=== PATIENT | female | born 1990 | race Caucasian/White ===

== ENCOUNTER 2019-11-04 23:43 | Emergency (ER) | payer MEDICAID, SELFPAY ==
[2019-11-04 23:46] VITALS: BP 163/109; PULSE 86; RESP 18; TEMP 36.8; O2SAT 99; BMI 42.4
--- NOTE | 2019-11-05 00:07 | ED.VIS.GEN ---
History of Present Illness Chief Complaint: Sore Throat Informant: Patient Onset: Days Timing: Intermittent Current Severity: Mild Maximum Severity: Mild Narrative: Patient presents with cold symptoms and concerns about white spots on her tonsils. She states she is had URI symptoms since but symptoms are improving. She denies having fever. Yesterday she was eating some almonds when she felt like something was stuck in her throat. She noted some white spots on her tonsils. She used the edge of a Q-tip to remove a piece of an almond had punctured into her right tonsil. She states it was bleeding for a short time after. She felt pretty good today but noted some increased white spots again tonight and is concerned she may have an infection. She also does bring up history of hypertension. She states for the past 3 years she will have elevated blood pressure when she checks it at a pharmacy or when she goes to her dentist. She states she seen her primary care physician a few times but when it is checked manually in the office she is always told it is okay. - Past Medical History (1) Hypertension Status: Chronic (2) HSV-2 seropositive Status: Chronic Past Medical History - Allergies and Home Meds Allergies/Adverse Reactions: Allergies latex Allergy (Verified 11/04/19 23:48) Itching meperidine HCl [From Demerol] Allergy (Verified 11/04/19 23:48) Hives acetaminophen [From Tylenol-Codeine #3] Adverse Reaction (Verified 11/04/19 23:48) Vomiting codeine phosphate [From Tylenol-Codeine #3] Adverse Reaction (Verified 11/04/19 23:48) Vomiting morphine Adverse Reaction (Verified 11/04/19 23:48) Vomiting Primary Care Physician: Care Physician,No Primary [Primary Care Provider] - Lives: With Family Smoking Status: Current every day smoker Review of Systems General: Denies: Chills, Fever Eyes: Denies: Visual changes - bilaterally ENT: Reports: Rhinorrhea, Sore throat, - - Head congestion Cardiovascular: Denies: Chest pain Respiratory: Reports: Cough. Denies: Dyspnea Gastrointestinal: Denies: Abdominal pain, Nausea, Vomiting, Diarrhea Musculoskeletal: Denies: Neck pain Skin: Denies: Rash Neurological: Denies: Headache Allergy: Denies: Uticaria Physical Exam Vital Signs/Narrative: Vital Signs Temp Pulse Resp BP Pulse Ox 11/04/19 23:46 98.2 F 86 18 163/109 H 99 Inital Vital Signs reviewed: Yes General: Well nourished, Well developed Head: Normocephalic Eyes: Perrl, EOMI ENT: TM's clear, - - 2+ tonsils bilaterally. Small exudate noted on right tonsil. Posterior pharyngeal drainage noted. Neck: Supple, No lymphadenopathy Cardiovascular: Regular rate, Regular rhythm Respiratory: No distress, CTA bilaterally Abdomen: Soft, Nontender Skin: Normal color Neurological: Alert, Oriented x3 Psychological: Normal affect Diagnostic/Tx/Re-eval - Medical Decision Making Does sound like patient has a puncture wound to her tonsil. Due to the amount of bacteria in her mouth I am concerned with his getting secondarily infected. She will be covered with amoxicillin. I also encouraged her to keep a journal of her blood pressure readings. She will be referred to Dr. Thompson, next on the no doc list for follow-up. I encouraged her to take this list to her first appointment to potentially be started on blood pressure medicine. ED Disposition - Plan for ED Patient: Disposition: Home or Assisted Living Diagnosis: Puncture wound of internal mouth Instructions: PUNCTURE WOUND, General, HYPERTENSION, To Be Confirmed Prescriptions: Amoxicillin 500 mg PO TID #30 tab Transmission Status: Pending to [facility] #30 Referrals: Pedrito Thompson MD [STAFF PHYSICIAN] - As soon as possible
[2019-11-05] MEDS: AMOXICILLIN 500 MG CAPSULE PO (00:14)
[2019-11-05 00:19] VITALS: BP 137/100; PULSE 85; RESP 15; O2SAT 98
== END 2019-11-05 00:20 | disposition home or self-care (01) ==
PROVIDERS: Emergency Provider Emergency Medicine
DX: S01.532A Puncture wound without foreign body of oral cavity, initial encounter (principal); R05 Cough; J34.89 Other specified disorders of nose and nasal sinuses; R09.81 Nasal congestion; J02.9 Acute pharyngitis, unspecified; X58.XXXA Exposure to other specified factors, initial encounter; Y93.9 Activity, unspecified; Y92.9 Unspecified place or not applicable; F17.200 Nicotine dependence, unspecified, uncomplicated
CPT/HCPCS: 99283

== ENCOUNTER 2020-04-10 11:35 | Emergency (ER) | payer MEDICAID, SELFPAY ==
[2020-04-10 11:36] VITALS: BP 143/88; PULSE 93; RESP 16; TEMP 36.6; O2SAT 96; BMI 38.7
--- NOTE | 2020-04-10 12:14 | RAD_ITS ---
STUDY: X-RAY - RIGHT FOOT CLINICAL: Female, 29 years old. right foot injury 04-08-20 -- pain, bruising, swelling 3-5th MT and toes TECHNIQUE: 3 view(s) of the foot. COMPARISON: None. FINDINGS: Normal talus, calcaneus, and tarsal bones. Normal visualized subtalar, talonavicular, calcaneocuboid, tarsal and tarsometatarsal articulations. Normal metatarsi. Normal metatarsophalangeal joint of the great toe. Normal tibial and fibular sesamoid bones. Normal interphalangeal joint of the great toe. Normal phalanges of the great toe. Normal second through fifth metatarsophalangeal joints. Normal interphalangeal joints and phalanges of the lesser toes. The soft tissue structures are unremarkable. RAD/Foot min 3 Views IMPRESSION: Normal x-ray examination of the foot. Electronically Signed: Curt Moscoso, at 12:33 EDT Tel , Service support ,
--- NOTE | 2020-04-10 12:14 | ED.VIS.LOWEX ---
History of Present Illness Chief Complaint: Lower Extremity Injury Informant: Patient Occurred: Days - 2 Mechanism/Context: Trip Context: Sudden Onset Timing: Continuous Quality of Pain: Aching Location: right foot Current Severity: Moderate Maximum Severity: Moderate Worsened by: walking Relieved by: resting, ibuprofen Associated Symptoms: Negative for: Parasthesia, Weakness, Loss of Funtion Narrative: 2 days ago, patient was going up some steps and tripped, jamming her forefoot into the rise of the next step, bending all of her toes back forcibly. She had on flats/shoes, somehow sustained an abrasion to the tops of the lateral couple toes, thinks that they probably got pinched in the process. She has been able to walk, however she had some bruising and swelling, it is persistent and is concerned she might of fractured something. Denies any other injuries. No ankle pain. - Past Medical History (1) Hypertension Status: Chronic Past Medical History - Allergies and Home Meds Allergies/Adverse Reactions: Allergies latex Allergy (Verified 04/10/20 12:12) Itching meperidine HCl [From Demerol] Allergy (Verified 04/10/20 12:12) Hives acetaminophen [From Tylenol-Codeine #3] Adverse Reaction (Verified 04/10/20 12:12) Vomiting codeine phosphate [From Tylenol-Codeine #3] Adverse Reaction (Verified 04/10/20 12:12) Vomiting morphine Adverse Reaction (Verified 04/10/20 12:12) Vomiting Primary Care Physician: Care Physician,No Primary [Primary Care Provider] - Lives: With Family Smoking Status: Current every day smoker Review of Systems Musculoskeletal: Reports: Extremity Pain Skin: Reports: Abrasions Neurological: Denies: Headache, Weakness, Numbness Physical Exam Vital Signs/Narrative: Vital Signs Temp Pulse Resp BP Pulse Ox 04/10/20 11:36 97.8 F 93 16 143/88 H 96 Inital Vital Signs reviewed: Yes - Extremity Exam Right Foot: Abrasion - Dorsum of the bases of toes 3 and 4, with scabs, no sign of infection, - - Tenderness at the distal half of metatarsals 3, 4, 5, with local swelling and ecchymosis in the associated toe webspaces. No tenderness at the toes themselves. No deformities. Base of the fifth nontender. No midfoot deformities. The tibial aspect of the foot is nontender and benign. No ankle tenderness or limitation range of motion.. Negative for: Limited ROM General: Well nourished, Well developed, - - nad Head: Normocephalic, Atraumatic Skin: Normal color, No rash, Trauma - See above. Skin intact. Minor abrasions dorsal right foot. Neurological: Alert, Oriented x3, Cranial nerves II-XII grossly intact, Normal Strength, Normal Sensation Psychological: Normal affect, Normal Mood Diagnostic/Tx/Re-eval Clinical Impression(s) from Imaging Studies Foot X-Ray 04/10/20 12:14 IMPRESSION: Normal x-ray examination of the foot. Electronically Signed: Elias Danis, at 12:33 EDT Tel , Service support , - Medical Decision Making X-rays are negative, patient is reassured, supportive care advised. She is wearing sandals and doing well with that I do not think a postop shoe will necessarily help her more. ED Disposition - Plan for ED Patient: Disposition: Home or Assisted Living Diagnosis: Contusion of right foot Instructions: ED FOOT CONTUSION Referrals: Doctor,Your [STAFF PHYSICIAN] - As Needed
[2020-04-10 13:24] VITALS: RESP 18
== END 2020-04-10 13:24 | disposition home or self-care (01) ==
PROVIDERS: Emergency Provider Emergency Medicine
DX: S90.31XA Contusion of right foot, initial encounter (principal); S90.811A Abrasion, right foot, initial encounter; W18.40XA Slipping, tripping and stumbling without falling, unspecified, initial encounter; Y93.9 Activity, unspecified; Y92.9 Unspecified place or not applicable; F17.200 Nicotine dependence, unspecified, uncomplicated
CPT/HCPCS: 73630; 99282

== ENCOUNTER 2020-10-11 20:56 | Emergency (ER) | payer MEDICAID, SELFPAY ==
[2020-10-11 20:57] VITALS: BP 146/102; PULSE 85; RESP 16; TEMP 35.8; O2SAT 100; BMI 36.3
--- NOTE | 2020-10-11 21:09 | US_ITS ---
STUDY: FIRST TRIMESTER OBSTETRICAL ULTRASOUND REASON FOR EXAM: Female, 29 years old SEVERE LLQ PAIN TODAY HCGs 427 LMP: 08/30/2020 TECHNIQUE: Transabdominal and Transvaginal TECHNICAL QUALITY: Adequate. PRIOR ULTRASOUND: None. FINDINGS: There is a gestational sac in the lower uterine segment. There is no demonstrated yolk sac. The placenta is non-visualized. There is no demonstrated embryo ( pole). The estimated gestation age (EGA) by LMP is 6 weeks, 0 days. The estimated date of delivery (JUAN JOSE) by LMP is 06/06/2021. The uterus measures 9.9 x 6.7 x 4.9 centimeters. There is no demonstrated uterine fibroid. The cervix is closed. Endometrial echoes measure 1.3 cm. The right ovary measures 3.5 x 2.6 x 2.2 cm. There is a 1.8 cm cyst. There is no visualized right adnexal mass or complex lesion. The left ovary measures 3.0 x 2.3 x 1.9 cm. There is no left ovarian cyst. There is no visualized left adnexal mass or complex lesion. There is no fluid in the cul de sac. US/Transvaginal w/Preg US IMPRESSION: No intrauterine gestation is seen. Therefore, ectopic cannot be excluded. Correlate with quantitative sequential beta hCG. Electronically Signed: Carlos Plaza MD at 22:49 EST , Service support ,
--- NOTE | 2020-10-11 21:34 | ED.DCSUM_ITS ---
History of Present Illness Chief Complaint: Abd Pain Informant: Patient Onset: Today Current Severity: Mild Maximum Severity: Moderate Narrative: Patient presents secondary to left lower quadrant pain that is been ongoing all day today. She believes she is approximately 6 weeks . She has not yet seen her [employer] [employer]. She states she was having some left flank pain over the past week but no dysuria. She is a history of kidney stones but states this pain is not similar to her prior kidney stones. She denies any bleeding or spotting. - Past Medical History (1) Kidney stones Status: Chronic (2) Hypertension Status: Chronic Past Medical History - Allergies and Home Meds Allergies/Adverse Reactions: Allergies latex Allergy (Verified 10/11/20 20:59) Itching meperidine HCl [From Demerol] Allergy (Verified 10/11/20 20:59) Hives acetaminophen [From Tylenol-Codeine #3] Adverse Reaction (Verified 10/11/20 20:59) Vomiting codeine phosphate [From Tylenol-Codeine #3] Adverse Reaction (Verified 10/11/20 20:59) Vomiting morphine Adverse Reaction (Verified 10/11/20 20:59) Vomiting Primary Care Physician: Care Physician,No Primary [Primary Care Provider] - Lives: With Family Smoking Status: Current every day smoker Review of Systems General: Denies: Chills, Fever Eyes: Denies: Visual changes - bilaterally ENT: Denies: Bilateral ear pain Cardiovascular: Denies: Chest pain Respiratory: Denies: Dyspnea, Cough Gastrointestinal: Reports: Abdominal pain. Denies: Vomiting, Diarrhea Genitourinary: Denies: Dysuria, Hematuria Musculoskeletal: Denies: Swelling, Extremity Pain Skin: Denies: Rash Hematologic: Denies: Easy bruising, Easy bleeding Allergy: Denies: Uticaria Physical Exam Vital Signs/Narrative: Vital Signs Temp Pulse Resp BP Pulse Ox 10/11/20 20:57 96.5 F L 85 16 146/102 H 100 Inital Vital Signs reviewed: Yes General: Well nourished, Well developed Head: Normocephalic ENT: Moist mucous membranes Neck: Supple Cardiovascular: Regular rate, Regular rhythm Respiratory: No distress, CTA bilaterally Abdomen: Soft, Nontender Extremities: Nontender Skin: Normal color Neurological: Alert, Oriented x3, Normal Strength, Normal Sensation Psychological: Normal affect Diagnostic/Tx/Re-eval Impressions Obstetrics Ultrasound 10/11/20 21:09 IMPRESSION: No intrauterine gestation is seen. Therefore, ectopic cannot be excluded. Correlate with quantitative sequential beta hCG. Electronically Signed: Carlos Plaza MD at 22:49 EST , Service support , 10/11/20 21:09 Transvaginal w/Preg US [US] Stat Laboratory Results 10/11/20 10/11/20 21:20 21:26 HCG, Quant 427 H Urine Color Yellow Urine Clarity Clear Urine pH 6.0 Ur Specific Barton 1.020 Urine Protein Negative Urine Glucose (UA) Normal Urine Ketones 5 H Urine Occult Blood Negative Urine Nitrite Negative Urine Bilirubin Negative Urine Urobilinogen Normal Ur Leukocyte Esterase 25 H Urine RBC 0 SEEN Urine WBC 0 SEEN Ur Squamous Epith Cells 0-5 SEEN Urine Bacteria 0 SEEN Urine Mucus RARE - Medical Decision Making Quant tonight is only 427. Patient thought she was roughly 6 weeks . Ultrasound does not reveal adnexal mass or obvious ectopic , however intrauterine has not yet identified either. Patient will be written for a repeat quant in 48 hours. I will speak with her [facility] [employer] to help arrange close follow-up. ED Disposition - Plan for ED Patient: Disposition: Home or Assisted Living Diagnosis: Pelvic pain Instructions: ED ECTOPIC RULE OUT Referrals: Nitza Bowman MD [STAFF PHYSICIAN] - 5-7 Days
[2020-10-11 21:43] LABS: Bacteria 0 SEEN /hpf (None Seen); Red Blood Cells-Urine 0 SEEN /hpf (0-5); White Blood Cells 0 SEEN /hpf (0-5)
[2020-10-11 21:46] LABS: Color, Urine Yellow (Yellow); Glucose, Dipstick Normal (Normal); Ketone-Dipstick 5 mg/dl (Negative); Leukocyte Esterase-Dipstick 25 /ul (Negative); Nitrite-Dipstick Negative (Negative); Occult Blood-Urine Negative /ul (Negative); Protein-Dipstick Negative (Negative); Urine Bilirubin Dipstick Negative (Negative); Urine Clarity Clear (Clear); Urine Urobilinogen Normal (Normal)
[2020-10-11 21:51] LABS: Mucous, Urine RARE /hpf (<or=2+); Squamous Epithelial Cells - UA 0-5 SEEN /hpf (5-10)
[2020-10-11 22:02] LABS: hCG Titer Quant., Serum 427 mIU/mL (1-3)
[2020-10-11 23:16] VITALS: BP 132/74; PULSE 74; RESP 17; O2SAT 98
== END 2020-10-11 23:17 | disposition home or self-care (01) ==
PROVIDERS: Emergency Provider Emergency Medicine
DX: R10.2 Pelvic and perineal pain (principal); I10 Essential (primary) hypertension; Z87.442 Personal history of urinary calculi; F17.200 Nicotine dependence, unspecified, uncomplicated
CPT/HCPCS: 76817; 81001; 84702; 99283

== ENCOUNTER → 2020-10-12 16:27 | Outpatient (CLI) | payer MEDICAID, SELFPAY ==
[2020-10-11 20:57] VITALS: BMI 36.3
--- NOTE | 2020-10-12 16:30 | US_ITS ---
STUDY: FIRST TRIMESTER OBSTETRICAL ULTRASOUND REASON FOR EXAM: Female, 29 years old LLQ PAIN AND VIABILITY LIGHT BLEEDING 6 para 3. No current hCG level reported. LMP: 08/30/2020 TECHNIQUE: Transvaginal TECHNICAL QUALITY: Adequate. PRIOR ULTRASOUND: 10/11/2020 FINDINGS: There is no demonstrated intrauterine gestational sac. There is no demonstrated yolk sac. The placenta is non-visualized. There is no demonstrated embryo ( pole). The estimated gestation age (EGA) by LMP is 6 weeks, 1 days. The estimated date of delivery (JUAN JOSE) by LMP is 06/06/2021. The uterus measures 9.4 x 4.6 x 4 cm. Endometrium measures approximately 0.9 cm. Small calcification anterior lower uterine segment with adjacent ovoid hypoechoic echotexture as seen on previous examination possible site. There is no demonstrated uterine fibroid. The cervix is closed. The right ovary measures 3.5 x 3 x 2.5 cm. There is a complex 1.6 x 1.8 x 1.3 cm right ovarian cyst. There is no visualized right adnexal mass or complex lesion. The left ovary measures 3.5 x 2.5 x 2 cm. There is no left ovarian cyst. There is no visualized left adnexal mass or complex lesion. There is no fluid in the cul de sac. US/Init OB < 14Wks US IMPRESSION: No intrauterine detected. Changes involving the lower uterine segment likely related to previous surgical intervention such as . This is unchanged. No adnexal masses, large pelvic fluid or ovarian torsion. Right complex ovarian cyst likely corpus luteum. There are no positive findings for ectopic in this study. Correlation with serial quantitative hCG measurements is advised. Electronically Signed: Nasima Terrazas MD at 7:00 EST , Service support ,
== END ==
PROVIDERS: Referring Provider Obstetrics & Gynecology; Visit Provider Obstetrics & Gynecology
DX: O26.899 Other specified pregnancy related conditions, unspecified trimester (principal); R10.2 Pelvic and perineal pain; Z3A.00 Weeks of gestation of pregnancy not specified
CPT/HCPCS: 76801

== ENCOUNTER → 2020-10-13 14:33 | Outpatient (CLI) | payer MEDICAID, SELFPAY ==
[2020-10-11 20:57] VITALS: BMI 36.3
[2020-10-13 15:37] LABS: hCG Titer Quant., Serum 141 mIU/mL (1-3)
== END ==
PROVIDERS: Referring Provider Obstetrics & Gynecology; Visit Provider Obstetrics & Gynecology
DX: Z34.90 Encounter for supervision of normal pregnancy, unspecified, unspecified trimester (principal)
CPT/HCPCS: 36415; 84702

== ENCOUNTER 2021-05-29 14:29 | Emergency (ER) | payer MEDICAID, SELFPAY ==
[2021-05-29 14:29] VITALS: BP 155/80; PULSE 86; RESP 16; TEMP 36.1; O2SAT 95; BMI 39.8
--- NOTE | 2021-05-29 14:40 | VDLE_ITS ---
Reason For Study: Swelling Procedure LEFT This is a venous duplex using B-mode, color GSV is normal. flow and spectral Doppler. CFV is compressible, spontaneous, phasic, Exam performed in department. competent, and demonstrates normal A preliminary report was called and/or faxed augmentation. to ED. FV is compressible, spontaneous, phasic, competent and demonstrates normal augmentation. POP V is compressible, spontaneous, phasic, competent and demonstrates normal augmentation. T/P Trunk is compressible. PTV is compressible. LT PerV is compressible. Nonvascularized structure noted in the left popliteal space posterior to popliteal artery and vein measuring approximently 0.98 x 0.89 x 1.69 cm. VL/Venous Duplex US, Unilateral Interpretation Summary There is no evidence of left lower extremity deep vein thrombosis. Left great s aphenous vein appears patent and compressible segmentally. Small nonvascular cystic structure left po pliteal space 0.98 x 0.89 x 1.69 cm. By location this would be consistent with a Wang's cyst. Clini alfonso correlation would be appropriate. Ordering Physician: Terrell Wiggins Performed By: Justina Toledo RVT
--- NOTE | 2021-05-29 14:41 | EDS_ITS ---
HPI History of Present Illness Chief Complaint: Lower Extremity Injury Narrative Narrative: Patient presents with left lower extremity lesion that she has had for few weeks now she gets swelling at night especially. She has no calf pain. She has no chest pain or shortness of breath. She has no fever or chills. She has been feeling more weak and tired in the past few weeks. She has no history of trauma. She has no urinary symptoms. [facility] Home Medications NK 05/29/21 [History Last Taken Unknown] Allergy/AdvReac Type Severity Reaction Status Date / Time latex Allergy Itching Verified 05/29/21 14:31 meperidine HCl [From Demerol] Allergy Hives Verified 05/29/21 14:31 acetaminophen AdvReac Vomiting Verified 05/29/21 14:31 [From Tylenol-Codeine #3] codeine phosphate AdvReac Vomiting Verified 05/29/21 14:31 [From Tylenol-Codeine #3] morphine AdvReac Vomiting Verified 05/29/21 14:31 Surgical History (Updated 05/29/21 @ 14:51 by Kathie Nelson) H/O: Social History Smoking Status: Current every day smoker tobacco type: cigarettes ROS ROS ED ROS Narrative Past medical history: Reviewed, noncontributory Medications: Reviewed Social history: Noncontributory Review of systems: All systems negative except as indicated General: No fever. Increased weakness and tiredness Eyes: No visual changes ENT: No upper airway congestion, normal voice Neck: No neck pain Cardiovascular: No chest pain Respiratory: No shortness of breath or cough Gastrointestinal: No abdominal pain, nausea vomiting or diarrhea Genitourinary: No dysuria Musculoskeletal: Left lower extremity pain as in HPI Skin: No rash Neurological: No memory loss, confusion or any focal weakness Psych: No recent behavioral changes Hematologic: No easy bleeding or easy bruising EXAM Physical Exam Narrative Exam Narrative: Physical exam General: Well nourished, Well developed, No Acute Distress Head: Normocephalic, Atraumatic Eyes: Conjunctiva not pale ENT: Moist mucous membranes Neck: Supple, Nontender, No lymphadenopathy Cardiovascular: Regular rate, Regular rhythm Respiratory: No distress, CTA bilaterally Abdomen: Soft, Nontender, Nondistended Back: Nontender, Normal Inspection. Negative for: CVA tenderness Extremities: Left lower extremity has a skin lesion that is slightly raised and erythematous but no fluctuance, there is no calor. There is no calf pain. At this time there is no edema. Otherwise neurovascularly intact. Skin: Normal color, No rash Neurological: Alert, Normal Strength, Normal Sensation Psychological: Normal affect Const Vital Signs: 05/29/21 14:29 Temperature 96.9 F L Temperature Source Temporal Pulse Rate 86 Respiratory Rate 16 Blood Pressure 155/80 H Blood Pressure Mean 105 Pulse Ox 95 Oxygen Delivery Method Room Air MDM MDM MDM Narrative Medical decision making narrative: Patient has a normal work-up including a negative venous study. She appears well she has 1 single lesion which may or may not be erythema nodosum regardless she tells me the lesion is improving therefore I do not believe any further work-up is needed, she will be discharged in stable condition. Lab Data Labs: Laboratory Results - last 24 hr 05/29/21 05/29/21 14:50 14:50 WBC 6.9 RBC 4.80 Hgb 15.1 H Hct 44.1 MCV 91.9 MCH 31.5 MCHC 34.2 RDW Std Deviation 40.4 RDW Coeff of Priscila 11.9 Plt Count 226 MPV 9.7 Immature Gran % (Auto) 0.400 Neut % (Auto) 49.7 Lymph % (Auto) 35.3 [place] % (Auto) 7.5 Eos % (Auto) 6.4 H Baso % (Auto) 0.7 Absolute Neuts (auto) 3.4 Absolute Lymphs (auto) 2.44 Nucleated RBC % 0 Sodium 138 Potassium 3.8 Chloride 110 H Carbon Dioxide 24.0 Anion Gap 4 L BUN 15 Creatinine 0.70 Estim Creat Clear Calc 92.94 Est GFR (MDRD) Af Amer 125 Est GFR (MDRD) Non-Af 103 BUN/Creatinine Ratio 21.3 H Glucose 90 Calcium 9.0 Total Bilirubin 0.70 AST 17 ALT 24 Alkaline Phosphatase 55 Total Protein 7.5 Albumin 4.0 Globulin 3.5 Albumin/Globulin Ratio 1.1 Discharge Plan Triage Chief Complaint: Lower Extremity Injury ED Provider: Terrell Wiggins Dx/Rx/DC Orders Clinical Impression: Acute leg pain Instructions: ED Peripheral Edema, Unilateral Prescriptions: No Action NK RF: 0 Primary Care Provider: Care Physician,No Primary Referrals: Madisyn Palafox MD [STAFF PHYSICIAN] - 2 Days Care Physician,No Primary [Primary Care Provider] - 2 Days Disposition Disposition: Home, Self Care
[2021-05-29 15:00] LABS: Absolute Lymphocyte Count 2.44 X10^3/uL (0.83-4.51); Absolute Neutrophil Count 3.4 X10^3/uL (2.0-7.7); Basophil# 0.05 X10^3/uL; Basophil% 0.7 % (0-1); Eosinophil# 0.44 X10^3/uL; Eosinophils% 6.4 % (0-5); Hematocrit 44.1 % (37-47); Hemoglobin 15.1 g/dL (12.0-15.0); Lymphocyte # 2.44 X10^3/ul (0.83-4.51); Lymphocyte % 35.3 % (19-41); Mean Corp Hgb Conc 34.2 g/dL (32-36); Mean Corpuscular Hgb 31.5 pg (27.0-32.0); Mean Corpuscular Volume 91.9 fL (81-99); Mean Platelet Vol. 9.7 fl (6.2-12.0); Monocyte# 0.52 X10^3/uL; Monocyte% 7.5 % (0-10); NRBC Flagged by Analyzer 0 % (0-5); Neutrophil # 3.43 X10^3/uL (2.7-7.7); Neutrophil % 49.7 % (47-70); Platelet Count 226 K/mm3 (150-450); RBC Distribution Width CV 11.9 % (11.6-14.6); RBC Distribution Width SD 40.4 fl (35.1-43.9); White Blood Count 6.9 K/mm3 (4.4-11.0)
[2021-05-29 15:18] LABS: ALB/GLOB Ratio 1.1 RATIO (0.9-2.4); AST(SGOT) 17 U/L (15-37); Alanine Aminotransfer ALT/SGPT 24 U/L (13-56); Alkaline Phosphatase 55 U/L (45-117); Anion Gap 4 (5-15); BUN 15 mg/dL (7-18); BUN/Creat Ratio 21.3 RATIO (10-20); Chloride 110 mmol/L (98-107); EST Glomerular Filtration Rate 103 mL/min (>60); Est Glom Filt Rate - Afr Amer 125 mL/min (>60); Estimated Creatinine Clearance 92.94 ml/min; Globulin 3.5 g/dL (2.2-4.2); Glucose 90 mg/dL (74-106); Potassium 3.8 mmol/L (3.5-5.1); Protein, Total 7.5 g/dL (6.4-8.2); Sodium Level 138 mmol/L (136-145)
== END 2021-05-29 16:13 | disposition home or self-care (01) ==
PROVIDERS: Emergency Provider Emergency Medicine
DX: M79.605 Pain in left leg (principal); L98.9 Disorder of the skin and subcutaneous tissue, unspecified; F17.210 Nicotine dependence, cigarettes, uncomplicated
CPT/HCPCS: 80053; 85025; 93971; 99282

== ENCOUNTER 2021-11-18 19:58 | Observation (INO) | payer MEDICAID, SELFPAY ==
[2021-11-18 19:59] VITALS: BP 135/102; PULSE 99; RESP 18; TEMP 36.1; BMI 40.2
--- NOTE | 2021-11-18 20:11 | EX.ED.SAOD ---
HPI History of Present Illness Chief Complaint: Substance Abuse Informant: patient Onset/Context/Timing Onset: Weeks Context: Gradual Onset Timing: Continuous Current Severity: Mild Maximum Severity: Mild Narrative Narrative: 30-year-old female reported fentanyl abuse. Says she has been trying to stop on her own but gets too sick at home when she stops using. States she snorts the fentanyl and denies any IV drug abuse. Denies ever going through detox before. Has no other significant past medical history. Prior similar symptoms: Yes Recent Illness/Hospitalization: No PFSH PFSH Home Medications NK 05/29/21 [History Last Taken Unknown] Allergy/AdvReac Type Severity Reaction Status Date / Time latex Allergy Itching Verified 11/18/21 20:01 meperidine HCl [From Demerol] Allergy Hives Verified 11/18/21 20:01 acetaminophen AdvReac Vomiting Verified 11/18/21 20:01 [From Tylenol-Codeine #3] codeine phosphate AdvReac Vomiting Verified 11/18/21 20:01 [From Tylenol-Codeine #3] morphine AdvReac Vomiting Verified 11/18/21 20:01 Surgical History H/O: Social History Smoking Status: Current every day smoker tobacco type: cigarettes ROS ROS ED ROS Narrative Nausea when she stopped using her fentanyl. Review of Systems ROS Unobtainable: Denies due to encephalopathy Constitutional Constitutional ED: Denies fever(s) Eyes Eyes: Denies change in vision ENT ENT ED: Denies ear pain Respiratory/Chest Respiratory/Chest: Denies dyspnea Gastrointestinal Gastrointestinal: Reports nausea; Denies abdominal pain or vomiting Genitourinary Genitourinary ED: Denies dysuria Musculoskeletal Musculoskeletal: Denies myalgias Integumentary Denies rash Neurologic Neurologic: Denies headache(s) Psychiatric Psychiatric: Denies depression Endocrine Endocrinology: Denies polyuria Hematologic/Lymphatic Hematologic/Lymphatic: Denies easy bruising Allergic/Immunologic Allergic/Immunologic ED: Denies urticaria EXAM Physical Exam Narrative Exam Narrative: 30-year-old female no acute distress vital signs stable afebrile blood pressure elevated 135/102. HEENT exam unremarkable. Neck nontender no JVD. Lungs clear to auscultation bilaterally. Heart regular rhythm rate about 95 no murmur. Chest were nontender. Abdomen soft nontender. Moving all 4 extremities. Nontender no edema. Back nontender. Neurologically she is awake and alert answering questions and following commands. Const Vital Signs: 11/18/21 19:59 Temperature 97 F L Temperature Source Temporal Pulse Rate 99 Respiratory Rate 18 Blood Pressure 135/102 H Blood Pressure Mean 113 Oxygen Delivery Method Room Air Positive well nourished, well developed and obese; Negative for cachectic, contractures or unkempt General Appearance ED: well developed and NAD; Negative for unkempt, cachectic, contractures or pallor Nutritional Appearance: obese; Negative for cachectic HEENT Reports moist mucous membranes atraumatic Eyes PERRL and EOMs intact bilaterally Neck no lymphadenopathy, supple and no JVD Thyroid: Negative for tender Lymph Lymphatic: no lymphadenopathy noted and lymphadenopathy Chest Wall inspection of chest normal and palpation of chest normal Resp normal respiratory effort and clear to auscultation bilaterally Auscultation: Negative for rales, rhonchi, wheezes or other GI soft to palpation, non-tender, non-distended and no masses Palpation: Negative for tender, guarding or rigid Back/Spine no CVA tenderness General Back: Negative for CVA tenderness Cervical Spine: Negative for cervical spine tenderness Extremity General Extremety ED: Negative for edema or tenderness General Extremity: Negative for edema Neuro oriented x3 Sensorium / Orientation: alert, oriented to person, oriented to place and oriented to time; Negative for confused, lethargic or stuporous Motor Exam: strength 5/5 throughout; Negative for general weakness Psych mental status grossly normal and thought process normal Appearance: Negative for unkempt Skin General Skin Exam: Negative for jaundice or pallor Lesions: no lesions Rashes: no rashes MDM MDM MDM Narrative Medical decision making narrative: 30-year-old female history of fentanyl abuse requesting detox. Benign exam. No other complaints. Will discuss with the hospitalist for admission. Discharge Plan Triage Chief Complaint: Substance Abuse ED Provider: Bear Richards Dx/Rx/DC Orders Clinical Impression: Substance abuse, Desire for detoxification Prescriptions: No Action NK RF: 0 Primary Care Provider: Care Physician,No Primary Referrals: Care Physician,No Primary [Primary Care Provider] - Disposition Disposition: Acute Care [facility]
--- NOTE | 2021-11-18 20:45 | HP.PCM.HOS_ITS ---
HPI - General General Date of Admission: 11/18/21 HPI Narrative NISH LINDSEY, is a 30 F with a significant history of depression, anxiety; bipolar disorder; morbid obesity and tobacco abuse who presents to the emergency department with a desire to detoxify from drugs. She reports a drug use for the past 3 and half weeks. She thought that she was taking Percocet but reportedly there is fentanyl in the Percocet tablets. She reports attempts to quit by herself but developed withdrawal symptoms. She is not in withdrawal at this time. Last time she used drugs was a few hours before presentation. [facility] Medical History Anxiety Bipolar disorder Chronic pain Depression GERD (gastroesophageal reflux disease) Migraines Smoker Substance abuse Home Medications NK 05/29/21 [History Last Taken Unknown] Allergy/AdvReac Type Severity Reaction Status Date / Time latex Allergy Itching Verified 11/18/21 20:01 meperidine HCl [From Demerol] Allergy Hives Verified 11/18/21 20:01 acetaminophen AdvReac Vomiting Verified 11/18/21 20:01 [From Tylenol-Codeine #3] codeine phosphate AdvReac Vomiting Verified 11/18/21 20:01 [From Tylenol-Codeine #3] morphine AdvReac Vomiting Verified 11/18/21 20:01 Family History Other Anxiety Depression Hypertension Surgical History H/O: History of cholecystectomy Social History Smoking Status: Current every day smoker tobacco type: cigarettes ROS ROS Narrative Constitutional: Denies fever, chills, fatigue, anorexia and change in weight Eyes: Denies blurry vision, change in eye color, change in vision, discharge from eye(s), double vision, erythema, eye pain, loss of vision or other HEENT: Denies abnormal hearing, dysphagia, ear pain, epistaxis, headache(s), hearing loss, nasal congestion, nasal discharge, post nasal drip, sinus pressure, sore throat or other Cardiovascular: Denies chest pain or palpitations. Denies dyspnea on exertion, orthopnea and paroxysmal nocturnal dyspnea Respiratory/Chest: Denies cough, excessive phlegm production, shortness of breath with exertion and wheezing Gastrointestinal: Denies abdominal pain, coffee ground emesis, constipation, diarrhea, dyspepsia, hematemesis, hematochezia, loose stools, melena, nausea, vomiting or other Genitourinary: Denies burning urination, difficulty urinating, dysuria, hematuria, nocturia, urinary frequency, urinary hesitancy, urinary incontinence, urinary urgency or other Musculoskeletal: Denies arthralgias, back pain, joint pain, joint stiffness, joint swelling, myalgias, neck pain or other Neurologic: Denies abnormal gait, abnormal speech, confusion, disequilibrium, dizziness, focal weakness, headache(s), numbness, paresthesias, seizure-like activity, seizures, syncope, tingling, tremor(s) or other Psychiatric: Reports anxiety. Denies homicidal ideation, suicidal ideation or other Endocrinology: Denies change in body appearance, cold intolerance, excessive sweating, heat intolerance, polydipsia, polyuria or other Hematologic/Lymphatic: Denies anemia, easy bleeding, easy bruising, lymphade nopathy or other Integumentary: Denies rashes Allergic/Immunologic: Denies rhinitis, hives, eczema, asthma or other Vital Signs Vital Signs Vital Signs: 11/18/21 19:59 Temperature 97 F L Temperature Source Temporal Pulse Rate 99 Respiratory Rate 18 Blood Pressure 135/102 H Blood Pressure Mean 113 Oxygen Delivery Method Room Air Weight Weight: 99.79 kg Body Mass Index (BMI) 40.2 Physical Exam Narrative Physical exam: General: Well-nourished, well-developed. Head: Normocephalic, atraumatic, no tenderness Eyes: PERRLA, EOMI ENT, no trauma, moist mucous membranes, no rhinorrhea Neck: Nontender, full range of motion, no spinal tenderness, deformities, step- off CVS: Regular rate and rhythm. S1-S2 present. No murmur, gallop or rub. Respiratory : clear to auscultation bilaterally, chest wall nontender, no wheezing Abdomen: Soft, nontender, nondistended, normal bowel sounds, no masses : Deferred Back: Nontender, no CVA tenderness, no midline spinal tenderness, deformities, step-offs Extremities: Nontender full range of motion, no trauma Skin: Normal color, no trauma, abrasions Neuro: Alert, oriented, cranial nerves II through XII grossly intact. Psychiatry: Normal mood. Normal affect. Not depressed. Not anxious. Assessment & Plan Assessment/Plan (1) Desire for detoxification: PLAN: Opioid dependence Patient be started on Subutex and other adjunctive medications: Gabapentin as needed; dicyclomine as needed; Vistaril as needed; methocarbamol as needed; clonidine as needed; Imodium as needed; trazodone as needed and Zofran as needed. Monitor COWS and CINA score Tobacco abuse Counseled Nicotine patch prescribed. Morbid obesity BMI: 40.5 kg/m2. Complicates care. Lifestyle modification recommended. DVT prophylaxis Low risk Encourage to ambulate Charges/Coding Visit Charges Inpatient E&M: 20703 Init Hosp L2
[2021-11-18 20:46] VITALS: BP 141/104; PULSE 89; RESP 18; TEMP 36.1; O2SAT 99
[2021-11-18 21:14] VITALS: BP 143/89; PULSE 80; RESP 18; TEMP 36.6; O2SAT 99
[2021-11-18 21:19] VITALS: BMI 40.4
[2021-11-18 21:37] VITALS: RESP 18
[2021-11-18 23:31] VITALS: O2SAT 99
[2021-11-19] VITALS (7 sets, daily range): BP systolic 120–154; BP diastolic 63–88; PULSE 70–84; RESP 16–18; TEMP 36.6–36.9; O2SAT 94–99
[2021-11-19] MEDS: Dicyclomine 10 MG Capsule 20 MG PO ×3 (02:45→18:16)
[2021-11-19] MEDS: Methocarbamol 750 MG Tablet 1500 MG PO ×3 (02:45→18:16)
[2021-11-19] MEDS: Gabapentin 300 MG Capsule PO ×3 (02:45→22:58)
[2021-11-19] MEDS: Buprenorphine HCl 2 MG TAB.SUBL SL ×3 (03:18→18:51)
[2021-11-19] MEDS: Ibuprofen 600 MG Tablet PO ×2 (04:57→14:24)
[2021-11-19] MEDS: Ondansetron 8 MG Tablet PO ×3 (06:34→22:58)
[2021-11-19] MEDS: hydrOXYzine PAM 25 MG Capsule 50 MG PO ×3 (06:34→22:58)
--- NOTE | 2021-11-19 08:53 | PCS.PANDOC ---
PANDEMIC DOCUMENTATION INITIATED: Date: 07/09/2021 Time: 190
[2021-11-19] MEDS: Loperamide 2 MG Capsule PO (10:32)
[2021-11-19] MEDS: cloNIDine HCl 0.1 MG Tablet PO ×2 (10:32→18:16)
--- NOTE | 2021-11-19 11:18 | ADDICTION ---
This technical proposal writer met with PT to conduct ASAM, MSE, DUDIT assessments and to plan for d/c. PT A+Ox4 and participated actively. All assessments completed, faxed to [facility] and placed in PT's chart. PT plans to f/u with individual counselor at [facility] for follow-up counseling services. PT did not indicate a need for transportation post d/c from [facility].
--- NOTE | 2021-11-19 14:47 | NURSING ---
pt aware of needing urine specimen, will call when has sample
[2021-11-19 16:32] LABS: Internal QC Validated? YES +Cl - CLEAR BKGD; Pregnancy, Urine Negative Negative
--- NOTE | 2021-11-19 19:21 | PCM.PN.HOSP ---
Subjective Subjective Patient was seen and examined today, she complains of some nervousness but otherwise is doing well. Objective Data Objective Data Vital Signs: Vital Signs Temp Pulse Resp BP Pulse Ox 98.1 F 70 18 154/78 H 98 11/19/21 18:48 11/19/21 18:48 11/19/21 18:48 11/19/21 18:48 11/19/21 18:48 Oxygen Delivery Method Room Air Weight: 99.79 kg Body Mass Index (BMI) 40.4 Intake & Output: Intake and Output for Last 24 Hours 11/17/21 11/18/21 11/19/21 23:59 23:59 23:59 Intake Total 900 / 900 Balance 900 / 900 Lab / Micro Data Labs: Laboratory Results - last 24 hr 11/19/21 15:15: Urine Test Negative Physical Exam Const alert, oriented x3, no apparent distress and healthy appearing General Appearance: cooperative, well kempt and well developed Orientation / Consciousness: awake, oriented to person, oriented to place and oriented to time HEENT normocephalic, head/scalp atraumatic and moist oral mucous membranes Head and Scalp: normocephalic Eyes PERRL, EOMs intact bilaterally and conjunctivae normal Neck nuchal rigidity, supple, no JVD, thyroid normal and no carotid bruits General: trachea midline Resp normal respiratory effort and clear to auscultation bilaterally Auscultation: Negative for rales, rhonchi or wheezes Cardio regular rate, regular rhythm, no murmurs, no rub and no gallops GI normal to inspection, nondistended, normoactive bowel sounds, soft to palpation, non-tender and non-distended Extremity no clubbing, cyanosis or edema Skin no rashes or lesions noted General Skin Exam: no breakdown Neuro oriented x3, CN's II-XII intact bilaterally, no focal motor deficits and no sensory deficits noted Sensorium / Orientation: awake and alert Speech: speech normal Psych thought process normal and affect normal Assessment & Plan Assessment/Plan (1) Substance abuse: PLAN: 1. Acute opiate withdrawal-patient will continue present medications, she states that she will do an outpatient program when she is released from the hospital. #2 chronic opiate [id number] present treatment #3 essential hypertension-I will start the patient on Cozaar 50 mg daily starting tomorrow morning Charges/Coding Visit Charges Inpatient E&M: 33316 Subs Hosp L2
[2021-11-19] MEDS: traZODone 100 MG Tablet PO (22:58)
[2021-11-20 03:26] VITALS: BP 115/60; PULSE 74; RESP 16; TEMP 36.4; O2SAT 96
[2021-11-20] MEDS: Methocarbamol 750 MG Tablet 1500 MG PO ×2 (03:31→09:21)
[2021-11-20] MEDS: Buprenorphine HCl 2 MG TAB.SUBL SL ×3 (03:31→18:06)
[2021-11-20] MEDS: cloNIDine HCl 0.1 MG Tablet PO (03:31)
[2021-11-20] MEDS: Dicyclomine 10 MG Capsule 20 MG PO ×3 (03:31→18:06)
[2021-11-20 09:15] VITALS: BP 106/58; PULSE 68; RESP 18; TEMP 36.6; O2SAT 98
[2021-11-20] MEDS: hydrOXYzine PAM 25 MG Capsule 50 MG PO (09:21)
[2021-11-20] MEDS: Losartan Potassium 50 MG Tablet PO (09:21)
--- NOTE | 2021-11-20 13:52 | PN.HOSP_ITS ---
Documented by User: Aly RIVERA 11/20/21 14:00 Subjective Subjective Patient is a 30-year-old female comfortably resting in bed, alert and orient x3. Patient reports that her withdrawal symptoms have improved over the past few days. Denies development of any new symptoms overnight. Does not appear in acute distress. Objective Data Objective Data Vital Signs: Vital Signs Temp Pulse Resp BP Pulse Ox 97.9 F 68 18 106/58 L 98 11/20/21 09:15 11/20/21 09:15 11/20/21 09:15 11/20/21 09:15 11/20/21 09:15 Oxygen Delivery Method Room Air Weight: 219 lb 15.988 oz Body Mass Index (BMI) 40.4 Intake & Output: Intake and Output for Last 24 Hours 11/18/21 11/19/21 11/20/21 23:59 23:59 23:59 Intake Total 900 / 900 Balance 900 / 900 Lab / Micro Data Labs: Laboratory Results - last 24 hr 11/19/21 15:15: Urine Test Negative Physical Exam Const alert, oriented x3 and no apparent distress HEENT head/scalp atraumatic and moist oral mucous membranes Head and Scalp: normocephalic Eyes PERRL, EOMs intact bilaterally and conjunctivae normal Neck no lymphadenopathy, supple and no JVD Resp normal respiratory effort, no retractions and no use of accessory muscles Cardio regular rate, regular rhythm, no murmurs and no JVD GI normal to inspection, nondistended, normoactive bowel sounds, soft to palpation and non-tender Extremity normal to inspection, full ROM and no clubbing, cyanosis or edema Skin no rashes or lesions noted, no wounds and skin turgor normal Neuro CN's II-XII intact bilaterally Psych affect normal Assessment & Plan Assessment/Plan (1) Substance abuse: PLAN: Day 1 Discharge planning: Current plan is for patient to discharge home and seek outpatient addiction medicine therapy when medically ready. 1. Acute opiate withdrawal secondary to chronic opiate addiction Patient is on day 2 of 4 of buprenorphine taper. Reports symptoms have improved over the past 24 hours. Plan is to continue buprenorphine taper as well as as needed medications. 2) HTN Stable, continue Cozaar. DVT prophylaxis - low risk, not indicated Patient seen by Aly Robertson PA-C, under the supervision of Melody Davis. Documented by User: Dr. Wolf Davis DO 11/20/21 20:36 Charges/Coding Addendum Addendum: Patient was seen and examined today independently of Aly Robertson, she appears less anxious today. She has no complaints of any muscle pain, nausea, or vomiting. On examination she appeared in good health and spirits, she does not appear to be in any distress. Vital signs as documented. Skin warm and dry and without overt rashes. Neck without JVD, thyroid appears normal, trachea is midline, neck is supple. Lungs clear, normal air movement was noted. Heart exam notable for regular rhythm, normal sounds and absence of murmurs, rubs or gallops. Abdomen unremarkable and without evidence of organomegaly, masses, or abdominal aortic enlargement, bowel sounds are present in all 4 quadrants, no abdominal tenderness was noted. Extremities nonedematous, no cyanosis was noted, no clubbing was noted. Neuro: Cranial nerves II through XII are grossly intact, no focal motor deficits were noted, sensation to light touch and pinprick is intact , motor exam 5/5 throughout. Psych: Patient is alert and oriented x3, she does not appear anxious or depressed, she does not appear agitated. I have reviewed Aly Robertson's progress note including his medical assessment and plan of care and endorse it. Visit Charges Inpatient E&M: 16394 Subs Hosp L2
--- NOTE | 2021-11-20 14:06 | NURSING ---
Mother wanted staff to have sister Corina Rodriguez' number [phone]. Will check with pt if sister allowed to have info.
[2021-11-20 18:04] VITALS: BP 122/61; PULSE 73; RESP 16; TEMP 36.5; O2SAT 98
[2021-11-20] MEDS: traZODone 100 MG Tablet PO (21:01)
[2021-11-20 21:10] VITALS: BP 114/68; PULSE 65; RESP 14; TEMP 36.9; O2SAT 97
[2021-11-21] MEDS: Buprenorphine HCl 2 MG TAB.SUBL SL ×2 (02:31→14:37)
[2021-11-21 03:00] VITALS: BP 119/62; PULSE 54; RESP 14; TEMP 36.7; O2SAT 98
[2021-11-21 08:14] VITALS: O2SAT 95
[2021-11-21 09:00] VITALS: BP 137/91; PULSE 82; RESP 18; TEMP 36.7; O2SAT 96
--- NOTE | 2021-11-21 09:49 | ADDICTION ---
This worker spoke with PT about detox, the importance of completion and managing symptoms once home. PT reports that she has much better things to do than sitting here in the bed. She reports that, I miss my kids and I could be working right now. PT plans on discharging today.
[2021-11-21] MEDS: Losartan Potassium 50 MG Tablet PO (10:02)
--- NOTE | 2021-11-21 10:40 | PCM.DC ---
Discharge Instructions Diet Discharge Diet: No restrictions Activity Discharge Activity: Return to Normal Activity Weight Bearing Status: Weight bearing as tolerated Dressing / Incision Call your doctor if you observe: Fever of 101 or Higher, Numbness or Tingling, Shortness of breath, Dizziness, Chest pain, Increased palpitations (irregular heartbeat) and Calf discomfort Follow Up Care Please Follow Up With: Primary care provider When: Within the next two weeks. Test Results: Test results from this visit will be discussed in further detail at your follow-up appointment, if applicable. Discharge Plan Admission Admit Date/Time: 11/18/21 20:53 Primary Reason for Your Visit: Opiate withdrawal/detox Attending Provider: Wolf Davis Primary Care Provider: Care Physician,No Primary Discharge Orders/Prescriptions Prescriptions: No Action NK RF: 0 Referrals / Follow Up: Alfredo Elmore MD [STAFF PHYSICIAN] - See Referral Note (Referral made to establish primary care. ) Care Physician,No Primary [Primary Care Provider] - Disposition Disposition (needs filled in before D/C Order can be placed): Home, Self Care
[2021-11-21] MEDS: Gabapentin 300 MG Capsule PO (11:52)
--- NOTE | 2021-11-21 13:05 | DS.PCM_ITS ---
Documented by User: Aly RIVERA 11/21/21 13:16 Providers Date of Admission: 11/18/21 Date of Discharge: 11/21/21 Primary Care Physician: No Primary Care Phys Reason For Visit: DESIRE FOR DETOXIFICATION Diagnosis Discharge Diagnosis (1) Substance abuse: Status: Acute Code(s): F19.10 - Other psychoactive substance abuse, uncomplicated Medications at Discharge Home Medications losartan 50 mg PO DAILY #30 tab 11/21/21 Hospital Course Summary of Care Provided Minutes Spent on Discharge: 35 Hospital Course: Disposition: Current plan is for patient to discharge home. 1. Acute opiate withdrawal secondary to chronic opiate addiction Patient reports wanting to discharge home as she wants to see her kids and feels comfortable as her withdrawal symptoms have resolved. Patient completed 3 out of 4 days of buprenorphine taper. Patient has established plan with [facility] behavioral services for outpatient addiction counseling. 2) HTN Stable, referral made to Dr. Elmore to establish outpatient primary care. Patient seen by Aly Robertson PA-C, under the supervision of Dr. Davis. Physical Exam Narrative Patient is a 30-year-old female comfortably resting in bed, alert and orient x3. Patient reports that she would like to be discharged home as she misses her c cheryldren and has not had any more symptoms. Development of any new symptoms overnight. Const alert, oriented x3 and no apparent distress HEENT normocephalic, head/scalp atraumatic and hearing grossly normal bilaterally Eyes PERRL, EOMs intact bilaterally and conjunctivae normal Neck no lymphadenopathy, supple and no JVD Resp normal respiratory effort, no retractions, no use of accessory muscles and clear to auscultation bilaterally Cardio regular rate, regular rhythm, no murmurs and no JVD GI normal to inspection, nondistended, normoactive bowel sounds, soft to palpation and non-tender Extremity normal to inspection, full ROM and no clubbing, cyanosis or edema Skin no rashes or lesions noted, no wounds and skin turgor normal Neuro CN's II-XII intact bilaterally Psych affect normal Weight / BMI Weight Weight: 219 lb 15.988 oz Body Mass Index (BMI) 40.4 D/C Instructions Discharge Diet: No restrictions Weight Bearing Status: Weight bearing as tolerated Call your doctor if you observe: Fever of 101 or Higher, Numbness or Tingling, Shortness of breath, Dizziness, Chest pain, Increased palpitations (irregular heartbeat) and Calf discomfort Please Follow Up With: Primary care provider When: Within the next two weeks. Meaningful Use Info Meaningful Use Diagnoses (Choose all that apply): None applicable Discharge Plan Admission Admit Date/Time: 11/18/21 20:53 Primary Reason for Your Visit: Opiate withdrawal/detox Attending Provider: Wolf Davis Primary Care Provider: Care Physician,No Primary Discharge Orders/Prescriptions Prescriptions: New losartan 50 mg tablet 50 mg PO DAILY Qty: 30 RF: 0 Referrals / Follow Up: Alfredo Elmore MD [STAFF PHYSICIAN] - See Referral Note (Referral made to establish primary care. ) Care Physician,No Primary [Primary Care Provider] - Disposition Disposition (needs filled in before D/C Order can be placed): Home, Self Care Documented by User: Dr. Wolf Davis, 11/21/21 21:00 Providers Date of Admission: 11/18/21 Reason For Visit: DESIRE FOR DETOXIFICATION Medications at Discharge Home Medications losartan 50 mg PO DAILY #30 tab 11/21/21 Discharge Plan Admission Admit Date/Time: 11/18/21 20:53 Primary Reason for Your Visit: Opiate withdrawal/detox Attending Provider: Wolf Davis Primary Care Provider: Care Physician,No Primary Discharge Orders/Prescriptions Prescriptions: New losartan 50 mg tablet 50 mg PO DAILY Qty: 30 RF: 0 Referrals / Follow Up: Alfredo Elmore MD [STAFF PHYSICIAN] - See Referral Note (Referral made to establish primary care. ) Care Physician,No Primary [Primary Care Provider] - Disposition Disposition (needs filled in before D/C Order can be placed): Home, Self Care Charges/Coding Addendum Addendum: Patient was seen and examined today independently of Aly Robertson, she feels as if she is stable for discharge home, she states she feels she will be okay until she follows up with outpatient detox services. I have elected to keep her on blood pressure medications at this time. On examination she appeared in good health and spirits, she does not appear to be in any distress. Vital signs as documented. Skin warm and dry and without overt rashes. Neck without JVD, thyroid appears normal, trachea is midline, neck is supple. Lungs clear, normal air movement was noted. Heart exam notable for regular rhythm, normal sounds and absence of murmurs, rubs or gallops. Abdomen unremarkable and without evidence of organomegaly, masses, or abdominal aortic enlargement, bowel sounds are present in all 4 quadrants, no abdominal tenderness was noted. Extremities nonedematous, no cyanosis was noted, no clubbing was noted. Neuro: Cranial nerves II through XII are grossly intact, no focal motor deficits were noted, sensation to light touch and pinprick is intact, motor exam 5/5 throughout. Psych: Patient is alert and oriented x3, she does not appear anxious or depressed, she does not appear agitated. Patient appears stable for discharge at this time, she will follow-up with outpatient detox services. I have reviewed Aly Robertson's discharge summary including his medical assessment and plan of care and endorse it. Visit Charges Inpatient E&M: 08157 Disch Hosp
[2021-11-21 14:41] VITALS: BP 116/80; PULSE 81; RESP 16; TEMP 37.1
[2021-11-21 17:04] VITALS: BP 146/99; PULSE 105; RESP 18; O2SAT 98
== END 2021-11-21 17:01 | disposition home or self-care (01) | DRG 773 ==
LOC: ED 20:15 → MS3 20:59
PROVIDERS: Admitting Provider Hospitalist; Emergency Provider Emergency Medicine; Visit Provider Internal Medicine
DX: F11.23 Opioid dependence with withdrawal (principal); F31.9 Bipolar disorder, unspecified; Z68.41 Body mass index [BMI] 40.0-44.9, adult; E66.01 Morbid (severe) obesity due to excess calories; F17.210 Nicotine dependence, cigarettes, uncomplicated; I10 Essential (primary) hypertension; F41.9 Anxiety disorder, unspecified; Z79.899 Other long term (current) drug therapy; G89.29 Other chronic pain
CPT/HCPCS: G0378 ×2; 81025; 99218; 99283; 99406; H0012

== ENCOUNTER 2022-01-01 17:05 | Outpatient (CLI) | payer MEDICAID, SELFPAY ==
[2022-01-01 18:14] LABS: Protein:Creat Ratio 77 mg/g CRE (0-200)
[2022-01-01 18:23] LABS: Amphetamine Urine VISTA NEGATIVE (<1000 ng/mL); Barbiturate Urine VISTA NEGATIVE (< 200 ng/mL); Benzodiazepine Urine VISTA NEGATIVE (< 200 ng/mL); Cocaine Urine VISTA NEGATIVE (< 300 ng/mL); Ecstacy Urine VISTA NEGATIVE (< 500 ng/mL); Methadone Urine VISTA NEGATIVE (< 300 ng/mL); PCP Urine VISTA NEGATIVE (< 25 ng/mL); THC Urine VISTA NEGATIVE (< 50 ng/mL); Vista UDS pH Range 5
[2022-01-04 00:06] LABS: Chlamydia By Nucleic Acid AMP Negative (Negative)
[2022-01-04 14:36] LABS: Gonococcus By Nucleic Acid AMP Negative (Negative)
[2022-01-04 20:45] LABS: HPV APTIMA, High Risk Negative (Negative)
== END 2022-01-01 23:59 | disposition home or self-care (01) ==
PROVIDERS: Visit Provider Obstetrics & Gynecology
DX: Z34.90 Encounter for supervision of normal pregnancy, unspecified, unspecified trimester (principal); I10 Essential (primary) hypertension
CPT/HCPCS: 80307; 82570; 84156; 87077; 87086; 87088; 87186; 87491; 87591; 87624; 88175; G0145

== ENCOUNTER 2022-04-29 19:40 | Outpatient (CLI) | payer MEDICAID, SELFPAY ==
[2022-04-29 20:02] VITALS: BP 147/88; PULSE 81
[2022-04-29 20:10] VITALS: TEMP 36.5; O2SAT 98
[2022-04-29 20:22] VITALS: BMI 39.1
--- NOTE | 2022-04-29 20:23 | US_ITS ---
RENAL ULTRASOUND CLINICAL HISTORY: history of kidney stones. TECHNIQUE: Gates scale and limited color imaging of the kidneys, bladder, inferior vena cava, and aorta. COMPARISON: None FINDINGS: The right kidney measures 11.2 cm. The echogenicity is normal. There is no hydronephrosis or perinephric collection. There is no focal renal mass or calculus seen. The left kidney measures 11.8 cm. Left pelviectasis. The echogenicity is normal. There is no perinephric collection. There is no focal renal mass or calculus seen. Bladder is partially decompressed, limiting evaluation. Prevoid bladder volume 90 cc.. US/Kidney and Bladder IMPRESSION: Left pelviectasis. Electronically Signed: Daniele Zimmerman MD at 22:02 EDT ,
[2022-04-29] MEDS: Lactated Ringers 1,000 ML 999 ML IV (20:45)
[2022-04-29 20:56] LABS: Color, Urine Yellow (Yellow); Glucose, Dipstick Normal (Normal); Ketone-Dipstick Negative (Negative); Leukocyte Esterase-Dipstick Negative /ul (Negative); Nitrite-Dipstick Negative (Negative); Occult Blood-Urine Negative /ul (Negative); Protein-Dipstick Negative (Negative); Urine Bilirubin Dipstick Negative (Negative); Urine Clarity Sl. Cloudy (Clear); Urine Urobilinogen Normal (Normal)
[2022-04-29 21:03] LABS: Absolute Lymphocyte Count 3.38 X10^3/uL (0.83-4.51); Absolute Neutrophil Count 9.3 X10^3/uL (2.0-7.7); Basophil# 0.06 X10^3/uL; Basophil% 0.4 % (0-1); Eosinophil# 0.31 X10^3/uL; Eosinophils% 2.1 % (0-5); Hemoglobin 12.8 g/dL (12.0-15.0); Lymphocyte # 3.38 X10^3/ul (0.83-4.51); Lymphocyte % 22.7 % (19-41); Mean Corp Hgb Conc 34.6 g/dL (32-36); Mean Corpuscular Hgb 32.4 pg (27.0-32.0); Mean Corpuscular Volume 93.7 fL (81-99); Mean Platelet Vol. 9.9 fl (6.2-12.0); Monocyte# 1.23 X10^3/uL; Monocyte% 8.3 % (0-10); NRBC Flagged by Analyzer 0 % (0-5); Neutrophil # 9.34 X10^3/uL (2.7-7.7); Neutrophil % 62.7 % (47-70); Platelet Count 214 K/mm3 (150-450); RBC Distribution Width CV 12.6 % (11.6-14.6); RBC Distribution Width SD 43.7 fl (35.1-43.9); Red Blood Count 3.95 M/mm3 (4.2-5.4); White Blood Count 14.9 K/mm3 (4.4-11.0)
[2022-04-29 21:12] LABS: ALB/GLOB Ratio 0.8 RATIO (0.9-2.4); AST(SGOT) 12 U/L (15-37); Alanine Aminotransfer ALT/SGPT 20 U/L (13-56); Albumin, Serum 2.7 g/dL (3.2-5.0); Alkaline Phosphatase 53 U/L (45-117); Anion Gap 4 (5-15); BUN 10 mg/dL (7-18); BUN/Creat Ratio 17.8 RATIO (10-20); Calcium,Total 8.8 mg/dL (8.5-10.1); Chloride 108 mmol/L (98-107); Creatinine, Serum 0.56 mg/dL (0.55-1.02); EST Glomerular Filtration Rate 133 mL/min (>60); Est Glom Filt Rate - Afr Amer 161 mL/min (>60); Estimated Creatinine Clearance 115.12 ml/min; Globulin 3.5 g/dL (2.2-4.2); Glucose 82 mg/dL (74-106); Potassium 3.6 mmol/L (3.5-5.1); Protein, Total 6.2 g/dL (6.4-8.2); Sodium Level 139 mmol/L (136-145)
[2022-04-29 21:52] LABS: Amphetamine Urine VISTA NEGATIVE (<1000 ng/mL); Barbiturate Urine VISTA NEGATIVE (< 200 ng/mL); Benzodiazepine Urine VISTA NEGATIVE (< 200 ng/mL); Cocaine Urine VISTA NEGATIVE (< 300 ng/mL); Ecstacy Urine VISTA NEGATIVE (< 500 ng/mL); Methadone Urine VISTA NEGATIVE (< 300 ng/mL); PCP Urine VISTA NEGATIVE (< 25 ng/mL); THC Urine VISTA NEGATIVE (< 50 ng/mL); Vista UDS pH Range 6
[2022-04-29] MEDS: Acetaminophen 500 MG Tablet 1000 MG PO (22:32)
--- NOTE | 2022-04-29 23:29 | OB.TRI.HP_ITS ---
HPI - General HPI Narrative NISH LINDSEY, is a 31 y/o @ 25 weeks who presents to OB triage with the complaint of back pain. She has not been seen in our office since her new ob visit at 7 weeks. the patient denies loss of fluid, vaginal bleeding, or dec fm. The patient states that she believes she is having kidney pain. She also denies fevers or chills. Maternal Data Information JUAN JOSE Calculator Estimated Delivery Date Method Current WG Current Estimate 08/16/22 Ultrasound #1 25w 0d Other Estimates 08/06/22 LMP (Uncertain) 26w 3d PFSH PFS Medical History (Updated 05/03/22 @ 14:[address] Denae Diego, ) Anxiety Bipolar disorder Chronic pain Depression Desire for detoxification GERD (gastroesophageal reflux disease) Kidney stones Migraines Positive GBS test Smoker Substance abuse Home Medications prenat.vits,alfonso,dpp-bxbq-jvdup 1 tab PO DAILY #90 tab 12/31/21 [Rx Last Taken Unknown] buprenorphine HCl [Subutex] 2 mg SUBLINGUAL DAILY 04/29/22 [History Last Taken Unknown] Allergy/AdvReac Type Severity Reaction Status Date / Time latex Allergy Itching Verified 04/30/22 15:30 meperidine HCl [From Demerol] Allergy Hives Verified 04/30/22 15:30 acetaminophen AdvReac Vomiting Verified 04/30/22 15:30 [From Tylenol-Codeine #3] codeine phosphate AdvReac Vomiting Verified 04/30/22 15:30 [From Tylenol-Codeine #3] morphine AdvReac Vomiting Verified 04/30/22 15:30 Family History Other Anxiety Depression Hypertension Surgical History H/O: History of cholecystectomy Social History household members: children number of children: 3 current occupational status: employed 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 last used 11/18/21 History 8 Elective abortions 2 Hx Para 3 Spontaneous abortions 2 Hx # Term Pregnancies Ectopic pregnancies Hx # Pregnancies Multiple births # of living children 3 Past Pregnancies Del. Date Name GA/Weeks Outcome Route Bth Weight Gen Labor Lgth Anesthesia Del Locatn Provider FOB 01/16/07 Aryan live - full term 7# 5oz Female epidural [facility] Sarah Rendon 09/24/07 elective 11/24/07 elective 07/03/10 Kodye live - full term 7#10oz Female spinal [facility] 07/18/16 Angel 39 live - full term 7# 1oz Male s kathrine [facility] SM Rickey 09/24/20 spontaneous 07/25/21 spontaneous Delivery Date: 01/16/07 c section due to FTP Had cholecystectomy and kidney stone while Ele Reyna Delivery Date: 09/24/07 No notes to display Delivery Date: 11/24/07 No notes to display Delivery Date: 07/03/10 No notes to display Delivery Date: 07/18/16 No notes to display Delivery Date: 09/24/20 No notes to display Delivery Date: 07/25/21 No notes to display Visit Details Expected Delivery Route/Plan RLTCS with Plans Covid status: [] Flu vaccine: [] Tdap vaccine: [] Rhogam: [] LARC form signed: [] Problem list reviewed and updated with the most current plan of care details and appropriate orders placed. Relevant counseling for the gestational age provided. Continue routine care and follow up unless otherwise noted in visit notes/problem list details OB Flowsheet Initial Weight: Not Recorded Date -?-?-?-?-?-?-?-?-?-?-?-?- EGA Weight BP Urine Prot -?-?-?-?-?-?-?-?-?-?-?-?- Glucose FHR FuHt Pres Dilation -?-?-?-?-?-?-?-?-?-?-?-?- Effaced St Visit Note 01/01/22 -?-?-?-?-?-?-?-?-?-?-?-?- 7w 4d 217 lb 120/62 -?-?-?-?-?-?-?-?-?-?-?-?- 160 -?-?-?-?-?-?-?--?-?-?-?-?- SM- CRL 1.3cm no t cons with LMP. discussed 180 referral. 04/29/22 -?-?-?-?-?-?-?-?-?-?-?-?- 24w 3d 213 lb 12.8 oz 147/88 N egative mg/dl (Negative) -?-?-?-?-?-?-?-?-?-?-?-?- -?-?-?-?-?-?-?-?-?-?-?-?- 04/30/22 -?-?-?-?-?-?-?-?-?-?-?-?- 24w 4d 216 lb 2 oz 134/80 Nega tive -?-?-?-?-?-?-?-?-?-?-?-?- Negative 161 25 -?-?-?-?-?-?-?-?-?-?-?-?- MH-first visit s guillermo NOB visit. Was seen ED yesterday for pain and US and labs normal. She is very upsetnot right in the head and no one will listen. She stopped her subutex because doesn't want baby addicted to it. Restarted today with a quarter of a pill. States had terrible experience in [place] and felt very judged by psychiatrist [facility]. Has thoughts of self harm, can't be away from her other kids. When asked why she had not come for other appts. Became very angry, states had bleeding and thought she had miscarried and then started feeling movement. She threatened to leave and was crying. Dr Bowman came to room. Discussion continued and patient agrees to continue care. Appt with Behavioral health, YUKIM with US and follow up with CLARISA. She will also be referred to [facility] and patient will be called with that tomorrow. Patient feeling more calm by end of visit. ROS Constitutional Constitutional: Reports systems reviewed and no addt'l complaints, except as documented Gastrointestinal Gastrointestinal: Denies bloating, constipation, cramping, diarrhea, nausea or vomiting Genitourinary Genitourinary: Reports other Details: Denies vaginal odor, vaginal bleeding, or vaginal discharge ; Denies difficulty urinating or flank pain Physical Exam HEENT normocephalic Resp normal respiratory effort and normal air movement no CVA tenderness Extremity normal to inspection General Extremity: edema bilateral (trace ) NST FHR Rate Baby A Baseline: 140 Variability:: Moderate Accelerations:: 15 x 15 Decelerations:: None NST Reactive:: Yes FHR Category:: Category I Assessment & Plan (1) Supervision of high risk , antepartum: COMMENT: JUAN JOSE 08/16/22 PC:Eduardo Baeza Keoni. BF: Junior (2) : QUALIFIERS: Weeks of gestation: 24 weeks Qualified Code(s): Z3A.24 - 24 weeks gestation of COMMENT: Need to discuss carrier and genetic screen. Will do this with remaining STD labs 04/30/22 (3) Smoker: COMMENT: 1.5ppd-counseled on quitting (4) Substance abuse: COMMENT: Not taking subutex. Appt MFM 06/01/22 fentanyl/denies substance use since hospitalization 11/18/21. referral to [facility]. (5) Positive GBS test: (6) H/O: : COMMENT: X 3 (7) Bipolar disorder: QUALIFIERS: Active/Remission status: currently active Current bi polar episode type: depressed Current episode severity: moderate Qualified Code(s): F31.32 - Bipolar disorder, current episode depressed, moderate COMMENT: Behavioral health appt 05/03/22 (8) Suicide attempt: COMMENT: 10/2021. Hospitalized, detox from fentynal at [facility]. 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 kidney ultrasound showed mild left pyelectasis. PLAN: tylenol ordered for pain, normal results reviewed with patient dc to home and encourage her to keep visits. Charges/Coding Multi Select Codes Visit Charges Office Visit/Consults: 26806 OV L3 Est Urinary/Genital Urinary/Genital CPT Codes: 02430-26 non-stress test Interp
== END 2022-04-29 22:35 | disposition home or self-care (01) ==
LOC: WPOUT 19:47 → WP 19:47
PROVIDERS: Visit Provider Obstetrics & Gynecology
DX: O26.892 Other specified pregnancy related conditions, second trimester (principal); F31.9 Bipolar disorder, unspecified; M54.9 Dorsalgia, unspecified; O99.342 Other mental disorders complicating pregnancy, second trimester; O98.812 Other maternal infectious and parasitic diseases complicating pregnancy, second trimester; B95.1 Streptococcus, group B, as the cause of diseases classified elsewhere; O10.912 Unspecified pre-existing hypertension complicating pregnancy, second trimester; Z91.51 Personal history of suicidal behavior; O99.332 Smoking (tobacco) complicating pregnancy, second trimester; F17.210 Nicotine dependence, cigarettes, uncomplicated; Z87.442 Personal history of urinary calculi; Z3A.25 25 weeks gestation of pregnancy
CPT/HCPCS: 59025; 59050; 76770; 80053; 80307; 81002; 85025; 99218; J7120; G0378

== ENCOUNTER → 2022-04-30 | Outpatient (CLI) | payer MEDICAID, SELFPAY ==
[2022-04-30 18:13] LABS: NATERA MAILED SPECIMEN
== END | disposition home or self-care (01) ==
LOC: LAB 17:08
PROVIDERS: Referring Provider Obstetrics & Gynecology; Visit Provider Obstetrics & Gynecology
DX: Z34.82 Encounter for supervision of other normal pregnancy, second trimester (principal); Z31.430 Encounter of female for testing for genetic disease carrier status for procreative management
CPT/HCPCS: 36415

== ENCOUNTER 2022-05-29 12:08 | Outpatient (CLI) | payer MEDICAID, SELFPAY ==
[2022-05-29 12:11] LABS: Protein, Urine (Random) 30.6 mg/dL (<11.9); Protein:Creat Ratio 163 mg/g CRE (0-200)
[2022-05-29 12:14] VITALS: BMI 40.6
[2022-05-29 12:52] VITALS: BP 137/87; PULSE 85
[2022-05-29 12:57] LABS: Hematocrit 37.2 % (37-47); Hemoglobin 12.8 g/dL (12.0-15.0); Mean Corp Hgb Conc 34.4 g/dL (32-36); Mean Platelet Vol. 9.5 fl (6.2-12.0); Platelet Count 202 K/mm3 (150-450); RBC Distribution Width CV 12.6 % (11.6-14.6); RBC Distribution Width SD 43.2 fl (35.1-43.9); White Blood Count 11.8 K/mm3 (4.4-11.0)
[2022-05-29 13:08] VITALS: BP 141/88; PULSE 81; TEMP 36.7
[2022-05-29 13:10] LABS: Protein, Urine (Random) 37.3 mg/dL (<11.9); Protein:Creat Ratio 193 mg/g CRE (0-200)
[2022-05-29 13:22] LABS: Glucose Challenge Gest 1H 50g 117 mg/dL (70-140)
[2022-05-29 13:23] VITALS: BP 135/83; PULSE 75
[2022-05-29 13:23] LABS: AST(SGOT) 19 U/L (15-37); Alanine Aminotransfer ALT/SGPT 17 U/L (13-56); Creatinine, Serum 0.58 mg/dL (0.55-1.02); EST Glomerular Filtration Rate 129 mL/min (>60); Est Glom Filt Rate - Afr Amer 156 mL/min (>60); Estimated Creatinine Clearance 111.15 ml/min; Uric Acid 3.3 mg/dL (2.6-6.0)
[2022-05-29 13:38] VITALS: BP 134/81; PULSE 81
[2022-05-29 13:53] VITALS: BP 129/78; PULSE 75
[2022-05-29] MEDS: Betamethasone/Betamethasone 30 MG/5 ML Vial 12 MG IM (14:03)
--- NOTE | 2022-05-30 06:10 | OB.TRI.PN_ITS ---
Progress Notes Progress Note: Patient presents for triage evaluation secondary to elevated bp in office FHT: 130-135 Moderate variability reactive no decelerations category I tracing Chesaning: no rgular Contractions Assessment and plan: elevated bp in office, now all normal and negative protein i nurine, neg lab evaluation for preeclampsia. still recommend steroids due to recent ANAND and intermittent change in vision. Reactive NST, reassuring maternal and status patient discharged to home to follow-up tomorrow for repeat bmz. See problem list details for additional plan information. Laboratory Studies: Laboratory Tests 05/29/22 05/29/22 05/29/22 Range/Units 12:35 12:35 12:35 WBC (4.4-11.0) K/mm3 RBC (4.2-5.4) M/mm3 Hgb (12.0-15.0) g/dL Hct (37-47) % MCV (81-99) fL MCH (27.0-32.0) pg MCHC (32-36) g/dL RDW Std Deviation (35.1-43.9) fl RDW Coeff of Priscila (11.6-14.6) % Plt Count (150-450) K/mm3 MPV (6.2-12.0) fl Creatinine 0.58 (0.55-1.02) mg/dL Estim Creat Clear Calc 111.15 ml/min Est GFR (MDRD) Af Amer 156 (>60) mL/min Est GFR (MDRD) Non-Af 129 (>60) mL/min Glucose 1 Hr 50 gm 117 (70-140) mg/dL Uric Acid 3.3 (2.6-6.0) mg/dL AST 19 (15-37) U/L ALT 17 (13-56) U/L U Random Total Protein 37.3 H (<11.9) mg/dL Urine Creatinine 193.00 (NO RANGE EST.) mg/dL Protein/Creatinin Ratio 193 (0-200) mg/g CRE 05/29/22 05/29/22 Range/Units 12:35 11:58 WBC 11.8 H (4.4-11.0) K/mm3 RBC 4.00 L (4.2-5.4) M/mm3 Hgb 12.8 (12.0-15.0) g/dL Hct 37.2 (37-47) % MCV 93.0 (81-99) fL MCH 32.0 (27.0-32.0) pg MCHC 34.4 (32-36) g/dL RDW Std Deviation 43.2 (35.1-43.9) fl RDW Coeff of Priscila 12.6 (11.6-14.6) % Plt Count 202 (150-450) K/mm3 MPV 9.5 (6.2-12.0) fl Creatinine (0.55-1.02) mg/dL Estim Creat Clear Calc ml/min Est GFR (MDRD) Af Amer (>60) mL/min Est GFR (MDRD) Non-Af (>60) mL/min Glucose 1 Hr 50 gm (70-140) mg/dL Uric Acid (2.6-6.0) mg/dL AST (15-37) U/L ALT (13-56) U/L U Random Total Protein 30.6 H (<11.9) mg/dL Urine Creatinine 188.00 (NO RANGE EST.) mg/dL Protein/Creatinin Ratio 163 (0-200) mg/g CRE Charges/Coding Procedures Urinary/Genital 52xxx-59xxx: 30435-24 non-stress test Interp Assessment & Plan (1) Elevated blood pressure affecting , antepartum: COMMENT: Pre E labs and to WP, repeat bps WNL and nl urine protein and negative labs (2) Prematurity of fetus: COMMENT: steroids given 05/29
== END 2022-05-29 14:00 | disposition home or self-care (01) ==
LOC: LABSPEC 12:11 → WPOUT 12:12 → WP 12:13
PROVIDERS: Nurse Practitioner Women's Health; Referring Provider Obstetrics & Gynecology; Visit Provider Obstetrics & Gynecology
DX: O26.899 Other specified pregnancy related conditions, unspecified trimester (principal); R03.0 Elevated blood-pressure reading, without diagnosis of hypertension; R51.9 Headache, unspecified; Z3A.00 Weeks of gestation of pregnancy not specified
CPT/HCPCS: 36415; 59025; 59050; 82565; 82570; 82950; 84156; 84450; 84460; 84550; 85027; 96372; 99218; G0378; J0702

== ENCOUNTER 2022-05-30 14:14 | Outpatient (CLI) | payer MEDICAID, SELFPAY ==
[2022-05-30 14:19] VITALS: BMI 40.6
--- NOTE | 2022-05-30 14:21 | NURSING ---
pt here for second celestone shot
[2022-05-30] MEDS: Betamethasone/Betamethasone 30 MG/5 ML Vial 12 MG IM (14:34)
--- NOTE | 2022-05-31 17:21 | OB.TRI.PN ---
Assessment & Plan (1) Prematurity of fetus: COMMENT: steroids given 05/29 PLAN: Plan celestone given for prematurity dose two
== END 2022-05-30 14:40 | disposition home or self-care (01) ==
LOC: WPOUT 14:16 → WP 14:17
PROVIDERS: Referring Provider Obstetrics & Gynecology; Visit Provider Obstetrics & Gynecology
DX: O60.00 Preterm labor without delivery, unspecified trimester (principal); Z3A.00 Weeks of gestation of pregnancy not specified
CPT/HCPCS: 96372; 99218; G0378; J0702

== ENCOUNTER → 2022-06-10 | Outpatient (CLI) | payer MEDICAID, SELFPAY ==
[2022-06-10 16:59] LABS: Protein, Urine (Random) 46.5 mg/dL (<11.9); Protein:Creat Ratio 174 mg/g CRE (0-200)
== END | disposition home or self-care (01) ==
LOC: LABSPEC 16:15
PROVIDERS: Visit Provider Obstetrics & Gynecology
DX: O16.9 Unspecified maternal hypertension, unspecified trimester (principal); Z3A.00 Weeks of gestation of pregnancy not specified
CPT/HCPCS: 82570; 84156

== ENCOUNTER 2022-06-14 16:10 | Outpatient (CLI) | payer MEDICAID, SELFPAY ==
[2022-06-14] VITALS (13 sets, daily range): BP systolic 122–150; BP diastolic 65–90; PULSE 64–85; TEMP 36.2; O2SAT 97; BMI 41.5
[2022-06-14 17:53] LABS: Absolute Lymphocyte Count 3.09 X10^3/uL (0.83-4.51); Absolute Neutrophil Count 8.3 X10^3/uL (2.0-7.7); Basophil# 0.09 X10^3/uL; Basophil% 0.7 % (0-1); Eosinophil# 0.23 X10^3/uL; Eosinophils% 1.7 % (0-5); Hemoglobin 11.8 g/dL (12.0-15.0); Lymphocyte # 3.09 X10^3/ul (0.83-4.51); Lymphocyte % 23.1 % (19-41); Mean Corp Hgb Conc 34.7 g/dL (32-36); Mean Corpuscular Hgb 32.5 pg (27.0-32.0); Mean Corpuscular Volume 93.7 fL (81-99); Mean Platelet Vol. 9.9 fl (6.2-12.0); Monocyte# 1.19 X10^3/uL; Monocyte% 8.9 % (0-10); NRBC Flagged by Analyzer 0 % (0-5); Neutrophil % 62.2 % (47-70); Platelet Count 194 K/mm3 (150-450); RBC Distribution Width CV 12.5 % (11.6-14.6); RBC Distribution Width SD 42.8 fl (35.1-43.9); Red Blood Count 3.63 M/mm3 (4.2-5.4); White Blood Count 13.4 K/mm3 (4.4-11.0)
[2022-06-14 18:09] LABS: ALB/GLOB Ratio 0.7 RATIO (0.9-2.4); AST(SGOT) 14 U/L (15-37); Alanine Aminotransfer ALT/SGPT 15 U/L (13-56); Albumin, Serum 2.3 g/dL (3.2-5.0); Alkaline Phosphatase 75 U/L (45-117); Anion Gap 6 (5-15); BUN 9 mg/dL (7-18); BUN/Creat Ratio 18.4 RATIO (10-20); Calcium,Total 8.8 mg/dL (8.5-10.1); Chloride 107 mmol/L (98-107); Creatinine, Serum 0.49 mg/dL (0.55-1.02); EST Glomerular Filtration Rate 157 mL/min (>60); Est Glom Filt Rate - Afr Amer 190 mL/min (>60); Estimated Creatinine Clearance 131.57 ml/min; Globulin 3.5 g/dL (2.2-4.2); Glucose 84 mg/dL (74-106); Potassium 3.5 mmol/L (3.5-5.1); Protein, Total 5.8 g/dL (6.4-8.2); Sodium Level 139 mmol/L (136-145)
[2022-06-14 18:16] LABS: Protein, Urine (Random) 29.3 mg/dL (<11.9); Protein:Creat Ratio 155 mg/g CRE (0-200)
[2022-06-14 18:39] LABS: Amphetamine Urine VISTA NEGATIVE (<1000 ng/mL); Barbiturate Urine VISTA NEGATIVE (< 200 ng/mL); Benzodiazepine Urine VISTA NEGATIVE (< 200 ng/mL); Cocaine Urine VISTA NEGATIVE (< 300 ng/mL); Ecstacy Urine VISTA NEGATIVE (< 500 ng/mL); Methadone Urine VISTA NEGATIVE (< 300 ng/mL); PCP Urine VISTA NEGATIVE (< 25 ng/mL); THC Urine VISTA NEGATIVE (< 50 ng/mL); Vista UDS pH Range 6
[2022-06-15 07:26] VITALS: BP 112/80; PULSE 112; PULSE 115; O2SAT 98
--- NOTE | 2022-06-23 11:02 | OB.TRI.HP_ITS ---
HPI - General General Date of Admission: 06/14/22 HPI Narrative NISH LINDSEY, is a 31 y/o @ 31 weeks who presents to L&D to rule out pre- eclampsia. She has had some elevated bp's at home with diastolics in the 140's. Maternal Data Information JUAN JOSE Calculator Estimated Delivery Date Method Current WG Current Estimate 08/16/22 Ultrasound #1 32w 2d Other Estimates 08/06/22 LMP (Uncertain) 33w 5d PFSH PFSH Medical History (Updated 06/23/22 @ 11:[address] Denae Diego, DO) Anxiety Bipolar disorder Chronic pain Depression Desire for detoxification GERD (gastroesophageal reflux disease) Kidney stones Migraines Positive GBS test Smoker Substance abuse Home Medications prenat.vits,alfonso,exm-lqbr-rywnx 1 tab PO DAILY #90 tabs 12/31/21 [Rx Last Taken Unknown] sertraline 100 mg tablet (Zoloft) 100 mg PO DAILY 05/16/22 [History Last Taken U nknown] buprenorphine HCl 2 mg sublingual tablet 4 mg sublingual DAILY 05/29/22 [History Last Taken Unknown] buprenorphine HCl 2 mg sublingual tablet 6 mg sublingual DAILY 06/10/22 [History Last Taken Unknown] Allergy/AdvReac Type Severity Reaction Status Date / Time latex Allergy Itching Verified 06/14/22 16:42 meperidine HCl [From Demerol] Allergy Hives Verified 06/14/22 16:42 acetaminophen AdvReac Vomiting Verified 06/14/22 16:42 [From Tylenol-Codeine #3] codeine phosphate AdvReac Vomiting Verified 06/14/22 16:42 [From Tylenol-Codeine #3] morphine AdvReac Vomiting Verified 06/14/22 16:42 Family History Other Anxiety Depression Hypertension Surgical History (Updated 06/11/22 @ 16:00 by Breanna Harley) H/O: History of cholecystectomy Social History household members: children number of children: 3 current occupational status: employed 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 last used 11/18/21 History 8 Elective abortions 2 Hx Para 3 Spontaneous abortions 2 Hx # Term Pregnancies Ectopic pregnancies Hx # Pregnancies Multiple births # of living children 3 Past Pregnancies Del. Date Name GA/Weeks Outcome Route Bth Weight Gen Labor Lgth Anesthesia Del Locatn Provider FOB 01/16/07 Aryan live - full term 7# 5oz Female epidural [facility] Benejessicas Justice 09/24/07 elective 11/24/07 elective 07/03/10 Kashmiere live - full term 7#10oz Female spinal [facility] 07/18/16 Angel 39 live - full term 7# 1oz Male s kathrine [facility] SM Rickey 09/24/20 spontaneous 07/25/21 spontaneous Delivery Date: 01/16/07 Last Updated by: Ele Reyna FREIGHT TRUCKER, FREIGHT TRUCKER-C c section due to FTP Had cholecystectomy and kidney stone while Visit Details Expected Delivery Route/Plan RLTCS with Plans Covid status: no Flu vaccine: no Tdap vaccine: given Rhogam: NA LARC form signed: yes Problem list reviewed and updated with the most current plan of care details and appropriate orders placed. Relevant counseling for the gestational age provided. Continue routine care and follow up unless otherwise noted in visit notes/problem list details OB Flowsheet Initial Weight: Not Recorded Date -?-?-?-?-?-?-?-?-?-?-?-?- EGA Weight BP Urine Prot -?-?-?-?--?-?-?-?-?-?-?-?- Glucose FHR FuHt Pres Dilation -?-?-?-?-?-?-?-?-?-?--?-?- Effaced St Visit Note 01/01/22 -?-?-?-?-?-?-?-?-?-?-?-?- 7w 4d 217 lb 120/62 -?-?-?-?-?-?-?-?-?-?-?-?- 160 -?-?-?-?-?-?-?-?-?-?-?-?- SM- CRL 1.3cm no t cons with LMP. discussed 180 referral. 04/29/22 -?-?-?-?-?-?-?-?-?-?-?--?- 24w 3d 213 lb 12.8 oz 147/88 N egative mg/dl (Negative) -?-?-?-?-?-?-?-?-?-?-?-?- -?-?-?-?-?-?-?-?-?-?-?-?- 04/30/22 -?-?-?-?-?-?-?-?-?-?-?-?- 24w 4d 216 lb 2 oz 134/80 Nega tive -?-?-?-?-?-?-?-?-?-?-?-?- Negative 161 25 -?-?-?-?-?-?-?-?-?-?-?-?- -first visit s guillermo NOB visit. Was seen ED yesterday for pain and US and labs normal. She is very upsetnot right in the head and no one will listen. She stopped her subutex because doesn't want baby addicted to it. Restarted today with a quarter of a pill. States had terrible experience in [place] and felt very judged by psychiatrist at [facility]. Has thoughts of self harm, can't be away from her other kids. When asked why she had not come for other appts. Became very angry, states had bleeding and thought she had miscarried and then started feeling movement. She threatened to leave and was crying. Dr Bowman came to room. Discussion continued and patient agrees to continue care. Appt with Behavioral health, MFM with US and follow up with . She will also be referred to 180 and patient will be called with that tomorrow. Patient feeling more calm by end of visit. 05/16/22 -?-?-?-?-?-?-?-?-?-?-?-?- 26w 6d 214 lb 128/82 Negative -?-?-?-?-?-?-?-?-?-?-?-?- Negative 150 27 -?-?-?-?-?-?-?-?-?-?-?-?- JV- pt states th at she is cutting her suboxone in half and in quarters and is now down to only 2 full tabs. She was sent to [place] because Dr. Schwarz was on vacation for all of Dec. and now she does not have transportation to get back to [place]. Will call [employer] now to ty to get her in [place]. pt needs to do her 1 hr gct. 05/29/22 -?-?-?-?-?-?-?-?-?-?-?-?- 28w 5d 222 lb 146/94 140/88 Trace -?-?-?-?-?-?-?-?-?-?-?-?- Negative 146 29 -?-?-?-?-?-?-?-?-?-?-?-?- MH-No Vb, LOF. G ood FM. Note elevated BP, has headache, seeing spots. States BP at detox clinic also elevated. Was on BP med prior to . Has recently increased subutex. To [facility] for monitoring. 28 wk labs and larc today. Plans BTO with CS. 06/10/22 -?-?-?-?-?-?-?-?-?-?-?-?- 30w 3d 227 lb 8 oz 132/88 -?-?-?-?--?-?-?-?-?-?-?-?- 145 30 -?-?-?-?-?-?-?-?-?-?-?-?- SM- no vb lof go od fm no regular ctx reviewed bps from home and 130s to 140s over 90s at home, no medication at this time. 06/14/22 -?-?-?-?-?-?-?-?-?-?-?-?- 31w 0d 227 lb 8 oz 128/79 123/73 128/79 133/83 126/75 131/85 136/81 150/90 123/79 122/78 122/79 125/65 112/80 -?-?-?-?-?-?-?-?-?-?-?-?- -?-?-?-?-?-?-?-?-?-?-?-?- ROS Constitutional Constitutional: Reports systems reviewed and no addt'l complaints, except as documented Gastrointestinal Gastrointestinal: Denies bloating, constipation, cramping, diarrhea, nausea or vomiting Genitourinary Genitourinary: Reports other Details: Denies vaginal odor, vaginal bleeding, or vaginal discharge ; Denies difficulty urinating or flank pain Physical Exam HEENT normocephalic Resp normal respiratory effort and normal air movement no CVA tenderness Extremity normal to inspection General Extremity: edema bilateral (trace ) NST FHR Rate Baby A Baseline: 125 Variability:: Moderate Accelerations:: 15 x 15 Decelerations:: None NST Reactive:: Yes FHR Category:: Category I Assessment & Plan (1) Contraception management: COMMENT: Wants BTO with CS. title 19 signed 06/10 (2) Back pain affecting in second trimester: COMMENT: A urine tox, cbc, cmp, and ua were ordered and found to be negative. kidney ultrasound showed mild left pyelectasis. (3) Positive GBS test: (4) Supervision of high risk , antepartum: COMMENT: JUAN JOSE 08/16/22 PC:Eduardo Baeza Keoni. BF: Junior (5) : QUALIFIERS: Weeks of gestation: 30 weeks Qualified Code(s): Z3A.30 - 30 weeks gestation of COMMENT: anatomy nl, NIPT low risk, Need to discuss genetic screen. Will do this with remaining STD labs 04/30/22, Carrier negative (6) Smoker: COMMENT: 1.5ppd-counseled on quitting;down to half ppd (7) Substance abuse: COMMENT: wkly NST @ 32 wks, growth US every 4 wks, deliver @ 38 due to h/o HTN. Not taking subutex. Appt MFM 06/01/22 fentanyl/denies substance use since hospitalization 11/18/21. seeing Lola in [facility] 06/20/22. (8) H/O: : COMMENT: X 3, RLTCSBS scheduled for 08/02 @ 12 (9) Bipolar disorder: QUALIFIERS: Active/Remission status: currently active Current bipolar episode type: depressed Current episode severity: moderate Qualified Code(s): F31.32 - Bipolar disorder, current episode depressed, moderate COMMENT: Behavioral health appt 05/03/22 (10) Suicide attempt: COMMENT: 10/2021. Hospitalized, detox from fentynal at [facility]. in counseling at counseling center, has appt with psychiatrist (11) Hypertension: QUALIFIERS: Hypertension type: unspecified Qualified Code(s): I10 - Essential (primary) hypertension COMMENT: stopped losartan when found out (12) HSV-2 seropositive: COMMENT: valtrex at 36 wk (13) Elevated blood pressure affecting in third trimester, antepartum: COMMENT: elevated pressures at home, normal blood pressures on L&D 120's/70's-60's PLAN: Plan normal blood pressures and normal PIH labs. pressures here are 120's/70's-60's. pt reassured. to bring home bp monitor in for comparison. Charges/Coding Multi Select Codes Visit Charges Office Visit/Consults: 74500 OV L3 Est Urinary/Genital Urinary/Genital CPT Codes: 77228-82 non-stress test Interp
== END 2022-06-14 18:50 | disposition home or self-care (01) ==
LOC: WPOUT 16:17 → WP 16:18
PROVIDERS: Obstetrics & Gynecology; Referring Provider Obstetrics & Gynecology; Visit Provider Obstetrics & Gynecology
DX: O99.340 Other mental disorders complicating pregnancy, unspecified trimester (principal); F31.32 Bipolar disorder, current episode depressed, moderate; O10.919 Unspecified pre-existing hypertension complicating pregnancy, unspecified trimester
CPT/HCPCS: 59025; 59050; 80053; 80307; 82570; 84156; 85025; 99218; G0378

== ENCOUNTER 2022-06-19 12:29 | Outpatient (CLI) | payer MEDICAID, SELFPAY ==
--- NOTE | 2022-06-19 12:30 | US_ITS ---
STUDY: SECOND AND THIRD TRIMESTER OBSTETRICAL ULTRASOUND REASON FOR EXAM: Female, 31 years old growth LMP: 11/09/2021. TECHNIQUE: Transabdominal TECHNICAL QUALITY: Adequate. PRIOR ULTRASOUND: None. FINDINGS: There is a single intrauterine fetus. The fetus is in a cephalic presentation. There is demonstrated cardiac activity with a heart rate of 158 bpm. There is a normal amniotic fluid volume. The largest amniotic fluid pocket measures 7.5 cm. The amniotic fluid index (PRERNA) is 18.6 cm. The placenta is anterior in location and is not low lying. There are Grade 1 placental changes. The cervix measures 4.4 cm in length. The adnexal regions are not visualized. BIOMETRY: BPD: 8.23 cm: 33 weeks, 0 days HC: 29.17 cm: 32 weeks, 1 days AC: 28.14 cm: 32 weeks, 1 days FL: 5.87 cm: 30 weeks, 4 days CI: 84% FL/BPD: 71% FL/HC: FL/AC: 21% HC/AC: 1.04 age by current US: 31 weeks, 3 days. JUAN JOSE by current US: 08/18/2022. Estimated weight: 1872 grams, +/- 281 grams, 46 %. Age by LMP: 31 weeks, 5 days. JUAN JOSE by LMP: 08/16/2022. US/OB Limited With Biometrics IMPRESSION: Single live uterine gestation with a mean gestational age of 31 weeks and 3 days. Electronically Signed: Darek Unger MD at 13:56 EDT ,
== END 2022-06-19 23:59 | disposition home or self-care (01) ==
LOC: OPUS 12:29
PROVIDERS: Visit Provider Obstetrics & Gynecology
DX: O09.90 Supervision of high risk pregnancy, unspecified, unspecified trimester (principal); Z3A.00 Weeks of gestation of pregnancy not specified
CPT/HCPCS: 76816

== ENCOUNTER → 2022-06-26 | Outpatient (CLI) | payer MEDICAID, SELFPAY ==
[2022-06-25 15:50] LABS: Protein:Creat Ratio 161 mg/g CRE (0-200)
== END | disposition home or self-care (01) ==
LOC: LABSPEC 06:51
PROVIDERS: Visit Provider Obstetrics & Gynecology
DX: O16.3 Unspecified maternal hypertension, third trimester (principal)
CPT/HCPCS: 82570; 84156

== ENCOUNTER 2022-07-05 13:30 | Inpatient (IN) | payer MEDICAID, SELFPAY ==
[2022-07-05] VITALS (124 sets, daily range): BP systolic 119–170; BP diastolic 61–104; PULSE 58–95; RESP 11–18; TEMP 35.7–36.4; O2SAT 84–100; BMI 42.7
[2022-07-05] MEDS: 0.9% Saline Lock 10 ML Syringe IV (12:56)
[2022-07-05] MEDS: Labetalol (Prefilled) 20 MG/4 ML IV (12:56)
[2022-07-05] MEDS: Lactated Ringers 1,000 ML 50 ML IV (13:07)
[2022-07-05] MEDS: Magnesium Sulfate 4gm/100mL 4 GM/100 ML IV.SOLN. IV (13:07)
[2022-07-05 13:09] LABS: Bacteria 0 SEEN /hpf (None Seen); Mucous, Urine 0 SEEN /hpf (<or=2+); Red Blood Cells-Urine 0 SEEN /hpf (0-5); White Blood Cells 0 SEEN /hpf (0-5)
[2022-07-05 13:19] LABS: Absolute Lymphocyte Count 2.62 X10^3/uL (0.83-4.51); Absolute Neutrophil Count 9.1 X10^3/uL (2.0-7.7); Basophil# 0.08 X10^3/uL; Basophil% 0.6 % (0-1); Eosinophil# 0.24 X10^3/uL; Eosinophils% 1.8 % (0-5); Hematocrit 36.8 % (37-47); Hemoglobin 12.9 g/dL (12.0-15.0); Lymphocyte # 2.62 X10^3/ul (0.83-4.51); Lymphocyte % 19.6 % (19-41); Mean Corp Hgb Conc 35.1 g/dL (32-36); Mean Corpuscular Hgb 32.3 pg (27.0-32.0); Mean Platelet Vol. 10.3 fl (6.2-12.0); Monocyte# 1.05 X10^3/uL; Monocyte% 7.8 % (0-10); NRBC Flagged by Analyzer 0 % (0-5); Neutrophil # 9.08 X10^3/uL (2.7-7.7); Neutrophil % 67.8 % (47-70); Platelet Count 211 K/mm3 (150-450); RBC Distribution Width CV 12.8 % (11.6-14.6); RBC Distribution Width SD 42.5 fl (35.1-43.9); White Blood Count 13.4 K/mm3 (4.4-11.0)
[2022-07-05 13:25] LABS: Color, Urine Yellow (Yellow); Glucose, Dipstick Normal (Normal); Ketone-Dipstick 15 mg/dl (Negative); Leukocyte Esterase-Dipstick Negative /ul (Negative); Nitrite-Dipstick Negative (Negative); Occult Blood-Urine Negative /ul (Negative); Protein-Dipstick Negative (Negative); Urine Bilirubin Dipstick Negative (Negative); Urine Clarity Sl. Cloudy (Clear); Urine Urobilinogen Normal (Normal); Urine pH 6.5 (5.0 - 8.0)
[2022-07-05 13:27] LABS: Amphetamine Urine VISTA NEGATIVE (<1000 ng/mL); Barbiturate Urine VISTA NEGATIVE (< 200 ng/mL); Benzodiazepine Urine VISTA NEGATIVE (< 200 ng/mL); Cocaine Urine VISTA NEGATIVE (< 300 ng/mL); Ecstacy Urine VISTA NEGATIVE (< 500 ng/mL); Methadone Urine VISTA NEGATIVE (< 300 ng/mL); PCP Urine VISTA NEGATIVE (< 25 ng/mL); THC Urine VISTA NEGATIVE (< 50 ng/mL); Vista UDS pH Range 7
[2022-07-05 13:31] LABS: Protein, Urine (Random) 20.1 mg/dL (<11.9); Protein:Creat Ratio 209 mg/g CRE (0-200)
[2022-07-05] MEDS: Magnesium Sulfate 4gm/100mL 2 GM/50 ML IV.SOLN. IV (13:31)
[2022-07-05 13:47] LABS: Squamous Epithelial Cells - UA 0-5 SEEN /hpf (5-10)
[2022-07-05] MEDS: Magnesium Sulfate 20 GM/500 ML BAG IV (13:47)
[2022-07-05 13:54] LABS: AST(SGOT) 17 U/L (15-37); Alanine Aminotransfer ALT/SGPT 14 U/L (13-56); Creatinine, Serum 0.58 mg/dL (0.55-1.02); EST Glomerular Filtration Rate 130 mL/min (>60); Est Glom Filt Rate - Afr Amer 157 mL/min (>60); Estimated Creatinine Clearance 111.15 ml/min; Uric Acid 3.4 mg/dL (2.6-6.0)
[2022-07-05 14:20] LABS: Rubella IgG Reactive (Nonreactive); Syphilis Antibodies Non-reactive
[2022-07-05 14:32] LABS: HIV - WCH Non-Reactive (Nonreactive); Hepatitis B Surface Antigen Non-Reactive (Nonreactive); Hepatitis C Antibody Non-Reactive (Nonreactive)
[2022-07-05 16:04] LABS: BUP Internal Control LINE = VALID (VALID); Buprenorphine Drug Screen Positive (<10 ng/mL)
[2022-07-05] MEDS: Lactated Ringers 1,000 ML 999 ML IV (16:50)
[2022-07-05] MEDS: Acetaminophen 500 MG Tablet 1000 MG PO (18:03)
[2022-07-05] MEDS: Sodium Citrate/Citric Acid 30 ML UDC PO (20:04)
[2022-07-05] MEDS: Cefazolin 2 GM in 0.9% Normal Saline 100 ML IV (20:06)
--- NOTE | 2022-07-05 20:12 | HP.PCM.OB_ITS ---
HPI - General General Date of Admission: 07/05/22 HPI Narrative NISH LINDSEY, is a 31 F who presents with severe preeclampsia severely elevated bps no ANAND BV no NV RUQ pain. labs WNL, patient started on magnesium sulfat upon admission. labetalol given for elevated bps. Maternal Data Information JUAN JOSE Calculator Estimated Delivery Date Method Current WG Current Estimate 08/16/22 Ultrasound #1 34w 0d Other Estimates 08/06/22 LMP (Uncertain) 35w 3d PFSH PFSH Medical History (Updated 07/05/22 @ 20:[address] Nitza Bowman MD) Anxiety Bipolar disorder Chronic pain Depression Desire for detoxification Genital herpes affecting GERD (gastroesophageal reflux disease) Kidney stones Migraines Positive GBS test Smoker Substance abuse Home Medications sertraline 100 mg tablet (Zoloft) 100 mg PO DAILY anxiety, depression 05/16/22 [History Last Taken 07/04/22] buprenorphine HCl 2 mg sublingual tablet 6 mg sublingual DAILY hx drug use 06/10/22 [History Last Taken 07/05/22] prenat.vits,alfonso,toi-kahr-ecsyo 1 tab PO DAILY 07/05/22 [History Last Taken 07/04/22] Allergy/AdvReac Type Severity Reaction Status Date / Time latex Allergy Itching Verified 07/05/22 13:16 meperidine HCl [From Demerol] Allergy Hives Verified 07/05/22 13:16 acetaminophen AdvReac Vomiting Verified 07/05/22 13:16 [From Tylenol-Codeine #3] codeine phosphate AdvReac Vomiting Verified 07/05/22 13:16 [From Tylenol-Codeine #3] morphine AdvReac Vomiting Verified 07/05/22 13:16 Family History Other Anxiety Depression Hypertension Surgical History H/O: History of cholecystectomy Social History household members: children number of children: 3 current occupational status: employed current occupation: [employer] pets and animals: No Smoking Status: Current every day smoker tobacco type: cigarettes alcohol intake: current alcohol intake frequency: holidays/special occasions only substance use type: former substance user Date of last use: fentanyl. last used 11/18/21 History 8 Elective abortions 2 Hx Para 3 Spontaneous abortions 2 Hx # Term Pregnancies Ectopic pregnancies Hx # Pregnancies Multiple births # of living children 3 Past Pregnancies Del. Date Name GA/Weeks Outcome Route Bth Weight Infant Gen Labor Lgth Anesthesia Del Locatn Provider FOB 01/16/07 Aryan live - full term 7# 5oz Female epidural [facility] Sarah Rendon 09/24/07 elective 11/24/07 elective 07/03/10 Kashmiere live - full term 7#10oz Female spinal [facility] 07/18/16 Angel 39 live - full term 7# 1oz Male s kathrine [facility] SM Rikcey 09/24/20 spontaneous 07/25/21 spontaneous Delivery Date: 01/16/07 Last Updated by: Ele Reyna CORPORATE LIBRARIAN, CORPORATE LIBRARIAN-C c section due to FTP Had cholecystectomy and kidney stone while Visit Details Expected Delivery Route/Plan RLTCS with SM Plans Covid status: no Flu vaccine: no Tdap vaccine: given Rhogam: NA LARC form signed: yes Problem list reviewed and updated with the most current plan of care details and appropriate orders placed. Relevant counseling for the gestational age provided. Continue routine care and follow up unless otherwise noted in visit notes/problem list details OB Flowsheet Initial Weight: Not Recorded Date -?-?-?-?-?-?-?-?-?-?-?-?- EGA Weight BP Urine Prot -?-?-?-?-?-?-?-?-?-?-?-?- Glucose FHR FuHt Pres Dilation -?-?-?-?-?-?-?-?-?-?-?-?- Effaced St Visit Note 01/01/22 -?-?-?-?-?-?-?-?-?-?-?-?- 7w 4d 217 lb 120/62 -?-?-?-?-?-?-?-?-?-?-?-?- 160 -?-?-?-?-?-?-?-?-?-?-?-?- SM- CRL 1.3cm no t cons with LMP. discussed 180 referral. 04/29/22 -?-?-?-?-?-?-?-?-?-?-?-?- 24w 3d 213 lb 12.8 oz 147/88 N egative mg/dl (Negative) -?-?-?-?-?-?-?-?-?-?-?-?- -?-?-?-?-?-?-?-?-?-?-?-?- 04/30/22 -?-?-?-?-?-?-?-?-?-?-?-?- 24w 4d 216 lb 2 oz 134/80 Nega tive -?-?-?-?-?-?-?-?-?-?-?-?- Negative 161 25 -?-?-?-?-?-?-?-?-?-?-?-?- MH-first visit s guillermo NOB visit. Was seen ED yesterday for pain and US and labs normal. She is very upsetnot right in the head and no one will listen. She stopped her subutex because doesn't want baby addicted to it. Restarted today with a quarter of a pill. States had terrible experience in [place] and felt very judged by psychiatrist [facility]. Has thoughts of self harm, can't be away from her other kids. When asked why she had not come for other appts. Became very angry, states had bleeding and thought she had miscarried and then started feeling movement. She threatened to leave and was crying. Dr Bowman came to room. Discussion continued and patient agrees to continue care. Appt with Behavioral health, MFM with US and follow up with . She will also be referred to [facility] and patient will be called with that tomorrow. Patient feeling more calm by end of visit. 05/16/22 -?-?-?-?-?-?-?-?-?-?-?-?- 26w 6d 214 lb 128/82 Negative -?-?-?-?-?-?-?-?-?-?-?-?- Negative 150 27 -?-?-?-?-?-?-?-?-?-?-?-?- JV- pt states th at she is cutting her suboxone in half and in quarters and is now down to only 2 full tabs. She was sent to [place] because Dr. Schwarz was on vacation for all of Dec. and now she does not have transportation to get back to [place]. Will call [employer] now to ty to get her in [place]. pt needs to do her 1 hr gct. 05/29/22 -?-?-?-?-?-?-?-?-?-?-?-?- 28w 5d 222 lb 146/94 140/88 Trace -?-?-?-?-?-?-?-?-?-?-?-?- Negative 146 29 -?-?-?-?-?-?-?-?-?-?-?-?- MH-No Vb, LOF. G ood FM. Note elevated BP, has headache, seeing spots. States BP at detox clinic also elevated. Was on BP med prior to . Has recently increased subutex. To [facility] for monitoring. 28 wk labs and larc today. Plans BTO with CS. 06/10/22 -?-?-?-?-?-?-?-?-?-?-?-?- 30w 3d 227 lb 8 oz 132/88 -?-?-?-?-?-?-?-?-?-?-?-?- 145 30 -?-?-?-?-?-?-?-?-?-?-?-?- SM- no vb lof go od fm no regular ctx reviewed bps from home and 130s to 140s over 90s at home, no medication at this time. 06/25/22 -?-?-?-?-?-?-?-?-?-?-?-?- 32w 4d 138/89 Trace -?-?-?-?-?-?-?-?-?-?-?-?- Negative 155 34 -?-?-?-?-?-?-?-?-?-?-?-?- JV- no lof, vagi nal bleeding, or dec fm. needs new ob labs plans to go down to lab. sending urine for prot:cr 07/05/22 -?-?-?-?-?-?-?-?-?-?-?-?- 34w 0d 234 lb 170/104 166/104 153/86 153/86 140/74 140/74 146/86 146/85 142/84 142/84 135/85 135/85 135/84 135/84 137/85 142/87 142/87 136/83 139/83 139/83 130/74 138/84 138/83 137/84 137/84 122/71 122/71 131/65 130/80 130/80 140/80 140/80 146/88 144/80 Negative mg/dl (Nega tive) -?-?-?-?-?-?-?-?-?-?-?-?- -?-?-?-?-?-?-?-?-?-?-?-?- NST FHR Rate Baby A Baseline: 140 Variability:: Moderate Accelerations:: 15 x 15 Decelerations:: None NST Reactive:: Yes FHR Category:: Category I Uterine Activity:: no regular ROS Constitutional Constitutional: Reports systems reviewed and no addt'l complaints, except as documented Eyes Eyes: Denies change in vision ENT HEENT: Reports systems reviewed and no addt'l complaints, except as documented; Denies headache(s) Cardiovascular Cardiovascular: Reports systems reviewed and no addt'l complaints, except as documented; Denies chest pain or dyspnea Respiratory/Chest Respiratory/Chest: Reports systems reviewed and no addt'l complaints, except as documented Gastrointestinal Gastrointestinal: Reports systems reviewed and no addt'l complaints, except as documented; Denies abdominal pain Genitourinary Genitourinary: Reports systems reviewed and no addt'l complaints, except as documented, contractions Details: present (irregular) and movement Details: present; Denies dysuria or genital lesions Musculoskeletal Musculoskeletal: Reports systems reviewed and no addt'l complaints, except as documented Neurologic Neurologic: Reports systems reviewed and no addt'l complaints, except as documented Endocrine Endocrinology: Reports systems reviewed and no addt'l complaints, except as documented Vital Signs Vital Signs Vital Signs: 07/05/22 12:27 07/05/22 12:27 07/05/22 12:28 Temperature Temperature Source Pulse Rate 85 Respiratory Rate Respiratory Effort Respiratory Depth Respiratory Pattern Blood Pressure 170/104 H Blood Pressure Mean BP Systolic 170 BP Diastolic 104 Blood Pressure Source Blood Pressure Position Blood Pressure Location Pulse Ox 97 Oxygen Delivery Method 07/05/22 12:28 07/05/22 12:32 07/05/22 12:32 Temperature Temperature Source Pulse Rate 78 92 Respiratory Rate Respiratory Effort Respiratory Depth Respiratory Pattern Blood Pressure Blood Pressure Mean BP Systolic BP Diastolic Blood Pressure Source Blood Pressure Position Blood Pressure Location Pulse Ox 98 Oxygen Delivery Method 07/05/22 12:37 07/05/22 12:37 07/05/22 12:42 Temperature Temperature Source Pulse Rate 95 Respiratory Rate Respiratory Effort Respiratory Depth Respiratory Pattern Blood Pressure Blood Pressure Mean BP Systolic BP Diastolic Blood Pressure Source Blood Pressure Position Blood Pressure Location Pulse Ox 98 98 Oxygen Delivery Method 07/05/22 12:42 07/05/22 12:44 07/05/22 12:44 Temperature Temperature Source Pulse Rate 84 78 Respiratory Rate Respiratory Effort Respiratory Depth Respiratory Pattern Blood Pressure 166/104 H Blood Pressure Mean BP Systolic 166 BP Diastolic 104 Blood Pressure Source Blood Pressure Position Blood Pressure Location Pulse Ox Oxygen Delivery Method 07/05/22 12:47 07/05/22 12:47 07/05/22 12:52 Temperature Temperature Source Pulse Rate 85 90 Respiratory Rate Respiratory Effort Respiratory Depth Respiratory Pattern Blood Pressure Blood Pressure Mean BP Systolic BP Diastolic Blood Pressure Source Blood Pressure Position Blood Pressure Location Pulse Ox 96 Oxygen Delivery Method 07/05/22 12:52 07/05/22 12:57 07/05/22 12:57 Temperature Temperature Source Pulse Rate 84 Respiratory Rate Respiratory Effort Respiratory Depth Respiratory Pattern Blood Pressure Blood Pressure Mean BP Systolic BP Diastolic Blood Pressure Source Blood Pressure Position Blood Pressure Location Pulse Ox 97 98 Oxygen Delivery Method 07/05/22 13:02 07/05/22 13:02 07/05/22 13:07 Temperature Temperature Source Pulse Rate 84 Respiratory Rate Respiratory Effort Respiratory Depth Respiratory Pattern Blood Pressure 153/86 H Blood Pressure Mean BP Systolic 153 BP Diastolic 86 Blood Pressure Source Blood Pressure Position Blood Pressure Location Pulse Ox 97 Oxygen Delivery Method 07/05/22 13:07 07/05/22 13:07 07/05/22 13:12 Temperature Temperature Source Pulse Rate 84 83 Respiratory Rate Respiratory Effort Respiratory Depth Respiratory Pattern Blood Pressure Blood Pressure Mean BP Systolic BP Diastolic Blood Pressure Source Blood Pressure Position Blood Pressure Location Pulse Ox 97 Oxygen Delivery Method 07/05/22 13:12 07/05/22 13:18 07/05/22 13:18 Temperature Temperature Source Pulse Rate 78 Respiratory Rate Respiratory Effort Respiratory Depth Respiratory Pattern Blood Pressure 140/74 H Blood Pressure Mean BP Systolic 140 BP Diastolic 74 Blood Pressure Source Blood Pressure Position Blood Pressure Location Pulse Ox 97 Oxygen Delivery Method 07/05/22 13:17 07/05/22 13:20 07/05/22 13:20 Temperature Temperature Source Pulse Rate 82 Respiratory Rate Respiratory Effort Respiratory Depth Respiratory Pattern Blood Pressure Blood Pressure Mean BP Systolic BP Diastolic Blood Pressure Source Blood Pressure Position Blood Pressure Location Pulse Ox 97 94 Oxygen Delivery Method 07/05/22 13:22 07/05/22 13:22 07/05/22 13:25 Temperature Temperature Source Pulse Rate 79 84 Respiratory Rate Respiratory Effort Respiratory Depth Respiratory Pattern Blood Pressure Blood Pressure Mean BP Systolic BP Diastolic Blood Pressure Source Blood Pressure Position Blood Pressure Location Pulse Ox 95 Oxygen Delivery Method 07/05/22 13:25 07/05/22 13:28 07/05/22 13:28 Temperature Temperature Source Pulse Rate 81 Respiratory Rate Respiratory Effort Respiratory Depth Respiratory Pattern Blood Pressure Blood Pressure Mean BP Systolic BP Diastolic Blood Pressure Source Blood Pressure Position Blood Pressure Location Pulse Ox 93 98 Oxygen Delivery Method 07/05/22 13:30 07/05/22 13:30 07/05/22 13:33 Temperature Temperature Source Pulse Rate 80 77 Respiratory Rate Respiratory Effort Respiratory Depth Respiratory Pattern Blood Pressure 146/85 H Blood Pressure Mean BP Systolic 146 BP Diastolic 85 Blood Pressure Source Blood Pressure Position Blood Pressure Location Pulse Ox Oxygen Delivery Method 07/05/22 13:33 07/05/22 13:38 07/05/22 13:38 Temperature Temperature Source Pulse Rate 84 Respiratory Rate Respiratory Effort Respiratory Depth Respiratory Pattern Blood Pressure Blood Pressure Mean BP Systolic BP Diastolic Blood Pressure Source Blood Pressure Position Blood Pressure Location Pulse Ox 97 98 Oxygen Delivery Method 07/05/22 13:40 07/05/22 13:40 07/05/22 13:43 Temperature Temperature Source Pulse Rate 77 78 Respiratory Rate Respiratory Effort Respiratory Depth Respiratory Pattern Blood Pressure 142/84 H Blood Pressure Mean BP Systolic 142 BP Diastolic 84 Blood Pressure Source Blood Pressure Position Blood Pressure Location Pulse Ox Oxygen Delivery Method 07/05/22 13:43 07/05/22 13:48 07/05/22 13:48 Temperature Temperature Source Pulse Rate 79 Respiratory Rate Respiratory Effort Respiratory Depth Respiratory Pattern Blood Pressure Blood Pressure Mean BP Systolic BP Diastolic Blood Pressure Source Blood Pressure Position Blood Pressure Location Pulse Ox 98 98 Oxygen Delivery Method 07/05/22 13:50 07/05/22 13:50 07/05/22 13:53 Temperature Temperature Source Pulse Rate 78 86 Respiratory Rate Respiratory Effort Respiratory Depth Respiratory Pattern Blood Pressure 135/85 H Blood Pressure Mean BP Systolic 135 BP Diastolic 85 Blood Pressure Source Blood Pressure Position Blood Pressure Location Pulse Ox Oxygen Delivery Method 07/05/22 13:53 07/05/22 13:58 07/05/22 13:58 Temperature Temperature Source Pulse Rate 81 Respiratory Rate Respiratory Effort Respiratory Depth Respiratory Pattern Blood Pressure Blood Pressure Mean BP Systolic BP Diastolic Blood Pressure Source Blood Pressure Position Blood Pressure Location Pulse Ox 98 98 Oxygen Delivery Method 07/05/22 14:00 07/05/22 14:00 07/05/22 14:03 Temperature Temperature Source Pulse Rate 76 81 Respiratory Rate Respiratory Effort Respiratory Depth Respiratory Pattern Blood Pressure 135/84 H Blood Pressure Mean BP Systolic 135 BP Diastolic 84 Blood Pressure Source Blood Pressure Position Blood Pressure Location Pulse Ox Oxygen Delivery Method 07/05/22 14:03 07/05/22 14:08 07/05/22 14:08 Temperature Temperature Source Pulse Rate 82 Respiratory Rate Respiratory Effort Respiratory Depth Respiratory Pattern Blood Pressure Blood Pressure Mean BP Systolic BP Diastolic Blood Pressure Source Blood Pressure Position Blood Pressure Location Pulse Ox 98 99 Oxygen Delivery Method 07/05/22 14:13 07/05/22 14:13 07/05/22 14:16 Temperature Temperature Source Pulse Rate 87 Respiratory Rate Respiratory Effort Respiratory Depth Respiratory Pattern Blood Pressure 137/85 H Blood Pressure Mean BP Systolic 137 BP Diastolic 85 Blood Pressure Source Blood Pressure Position Blood Pressure Location Pulse Ox 99 Oxygen Delivery Method 07/05/22 14:16 07/05/22 14:18 07/05/22 14:18 Temperature Temperature Source Pulse Rate 85 75 Respiratory Rate Respiratory Effort Respiratory Depth Respiratory Pattern Blood Pressure Blood Pressure Mean BP Systolic BP Diastolic Blood Pressure Source Blood Pressure Position Blood Pressure Location Pulse Ox 99 Oxygen Delivery Method 07/05/22 14:23 07/05/22 14:23 07/05/22 14:28 Temperature Temperature Source Pulse Rate 75 84 Respiratory Rate Respiratory Effort Respiratory Depth Respiratory Pattern Blood Pressure Blood Pressure Mean BP Systolic BP Diastolic Blood Pressure Source Blood Pressure Position Blood Pressure Location Pulse Ox 98 Oxygen Delivery Method 07/05/22 14:28 07/05/22 14:31 07/05/22 14:31 Temperature Temperature Source Pulse Rate 80 Respiratory Rate Respiratory Effort Respiratory Depth Respiratory Pattern Blood Pressure 142/87 H Blood Pressure Mean BP Systolic 142 BP Diastolic 87 Blood Pressure Source Blood Pressure Position Blood Pressure Location Pulse Ox 99 Oxygen Delivery Method 07/05/22 14:33 07/05/22 14:33 07/05/22 14:38 Temperature Temperature Source Pulse Rate 81 78 Respiratory Rate Respiratory Effort Respiratory Depth Respiratory Pattern Blood Pressure Blood Pressure Mean BP Systolic BP Diastolic Blood Pressure Source Blood Pressure Position Blood Pressure Location Pulse Ox 99 Oxygen Delivery Method 07/05/22 14:38 07/05/22 14:46 07/05/22 14:46 Temperature Temperature Source Pulse Rate 89 Respiratory Rate Respiratory Effort Respiratory Depth Respiratory Pattern Blood Pressure Blood Pressure Mean BP Systolic BP Diastolic Blood Pressure Source Blood Pressure Position Blood Pressure Location Pulse Ox 99 100 Oxygen Delivery Method 07/05/22 14:47 07/05/22 14:47 07/05/22 14:51 Temperature Temperature Source Pulse Rate 78 76 Respiratory Rate Respiratory Effort Respiratory Depth Respiratory Pattern Blood Pressure 136/83 H Blood Pressure Mean BP Systolic 136 BP Diastolic 83 Blood Pressure Source Blood Pressure Position Blood Pressure Location Pulse Ox Oxygen Delivery Method 07/05/22 14:51 07/05/22 14:47 07/05/22 14:47 Temperature 97.1 F L Temperature Source Temporal Pulse Rate Respiratory Rate Respiratory Effort Respiratory Depth Respiratory Pattern Blood Pressure Blood Pressure Mean BP Systolic BP Diastolic Blood Pressure Source Blood Pressure Position Blood Pressure Location Pulse Ox 100 Oxygen Delivery Method 07/05/22 14:56 07/05/22 14:56 07/05/22 15:01 Temperature Temperature Source Pulse Rate 77 Respiratory Rate Respiratory Effort Respiratory Depth Respiratory Pattern Blood Pressure 139/83 H Blood Pressure Mean BP Systolic 139 BP Diastolic 83 Blood Pressure Source Blood Pressure Position Blood Pressure Location Pulse Ox 100 Oxygen Delivery Method 07/05/22 15:01 07/05/22 15:01 07/05/22 15:06 Temperature Temperature Source Pulse Rate 76 78 Respiratory Rate Respiratory Effort Respiratory Depth Respiratory Pattern Blood Pressure Blood Pressure Mean BP Systolic BP Diastolic Blood Pressure Source Blood Pressure Position Blood Pressure Location Pulse Ox 100 Oxygen Delivery Method 07/05/22 15:06 07/05/22 15:11 07/05/22 15:11 Temperature Temperature Source Pulse Rate 79 Respiratory Rate Respiratory Effort Respiratory Depth Respiratory Pattern Blood Pressure Blood Pressure Mean BP Systolic BP Diastolic Blood Pressure Source Blood Pressure Position Blood Pressure Location Pulse Ox 99 99 Oxygen Delivery Method 07/05/22 15:16 07/05/22 15:16 07/05/22 15:16 Temperature Temperature Source Pulse Rate 76 78 Respiratory Rate Respiratory Effort Respiratory Depth Respiratory Pattern Blood Pressure 130/74 H Blood Pressure Mean BP Systolic 130 BP Diastolic 74 Blood Pressure Source Blood Pressure Position Blood Pressure Location Pulse Ox Oxygen Delivery Method 07/05/22 15:16 07/05/22 15:21 07/05/22 15:21 Temperature Temperature Source Pulse Rate 82 Respiratory Rate Respiratory Effort Respiratory Depth Respiratory Pattern Blood Pressure Blood Pressure Mean BP Systolic BP Diastolic Blood Pressure Source Blood Pressure Position Blood Pressure Location Pulse Ox 99 97 Oxygen Delivery Method 07/05/22 15:26 07/05/22 15:26 07/05/22 15:31 Temperature Temperature Source Pulse Rate 77 74 Respiratory Rate Respiratory Effort Respiratory Depth Respiratory Pattern Blood Pressure Blood Pressure Mean BP Systolic BP Diastolic Blood Pressure Source Blood Pressure Position Blood Pressure Location Pulse Ox 99 Oxygen Delivery Method 07/05/22 15:31 07/05/22 15:33 07/05/22 15:33 Temperature Temperature Source Pulse Rate 73 Respiratory Rate Respiratory Effort Respiratory Depth Respiratory Pattern Blood Pressure 138/84 H Blood Pressure Mean BP Systolic 138 BP Diastolic 84 Blood Pressure Source Blood Pressure Position Blood Pressure Location Pulse Ox 97 Oxygen Delivery Method 07/05/22 15:36 07/05/22 15:36 07/05/22 15:41 Temperature Temperature Source Pulse Rate 78 76 Respiratory Rate Respiratory Effort Respiratory Depth Respiratory Pattern Blood Pressure Blood Pressure Mean BP Systolic BP Diastolic Blood Pressure Source Blood Pressure Position Blood Pressure Location Pulse Ox 98 Oxygen Delivery Method 07/05/22 15:41 07/05/22 15:46 07/05/22 15:46 Temperature Temperature Source Pulse Rate 74 Respiratory Rate Respiratory Effort Respiratory Depth Respiratory Pattern Blood Pressure 138/83 H Blood Pressure Mean BP Systolic 138 BP Diastolic 83 Blood Pressure Source Blood Pressure Position Blood Pressure Location Pulse Ox 99 Oxygen Delivery Method 07/05/22 15:46 07/05/22 15:46 07/05/22 15:51 Temperature Temperature Source Pulse Rate 79 75 Respiratory Rate Respiratory Effort Respiratory Depth Respiratory Pattern Blood Pressure Blood Pressure Mean BP Systolic BP Diastolic Blood Pressure Source Blood Pressure Position Blood Pressure Location Pulse Ox 98 Oxygen Delivery Method 07/05/22 15:51 07/05/22 15:56 07/05/22 15:56 Temperature Temperature Source Pulse Rate 83 Respiratory Rate Respiratory Effort Respiratory Depth Respiratory Pattern Blood Pressure Blood Pressure Mean BP Systolic BP Diastolic Blood Pressure Source Blood Pressure Position Blood Pressure Location Pulse Ox 95 97 Oxygen Delivery Method 07/05/22 16:01 07/05/22 16:01 07/05/22 16:01 Temperature Temperature Source Pulse Rate 82 80 Respiratory Rate Respiratory Effort Respiratory Depth Respiratory Pattern Blood Pressure 137/84 H Blood Pressure Mean BP Systolic 137 BP Diastolic 84 Blood Pressure Source Blood Pressure Position Blood Pressure Location Pulse Ox Oxygen Delivery Method 07/05/22 16:01 07/05/22 16:09 07/05/22 16:09 Temperature Temperature Source Pulse Rate 77 Respiratory Rate Respiratory Effort Respiratory Depth Respiratory Pattern Blood Pressure Blood Pressure Mean BP Systolic BP Diastolic Blood Pressure Source Blood Pressure Position Blood Pressure Location Pulse Ox 97 97 Oxygen Delivery Method 07/05/22 16:14 07/05/22 16:14 07/05/22 16:19 Temperature Temperature Source Pulse Rate 78 73 Respiratory Rate Respiratory Effort Respiratory Depth Respiratory Pattern Blood Pressure Blood Pressure Mean BP Systolic BP Diastolic Blood Pressure Source Blood Pressure Position Blood Pressure Location Pulse Ox 98 Oxygen Delivery Method 07/05/22 16:19 07/05/22 16:24 07/05/22 16:24 Temperature Temperature Source Pulse Rate 72 Respiratory Rate Respiratory Effort Respiratory Depth Respiratory Pattern Blood Pressure Blood Pressure Mean BP Systolic BP Diastolic Blood Pressure Source Blood Pressure Position Blood Pressure Location Pulse Ox 98 96 Oxygen Delivery Method 07/05/22 16:30 07/05/22 16:30 07/05/22 16:34 Temperature Temperature Source Pulse Rate 73 70 Respiratory Rate Respiratory Effort Respiratory Depth Respiratory Pattern Blood Pressure Blood Pressure Mean BP Systolic BP Diastolic Blood Pressure Source Blood Pressure Position Blood Pressure Location Pulse Ox 94 Oxygen Delivery Method 07/05/22 16:34 07/05/22 16:36 07/05/22 16:36 Temperature Temperature Source Pulse Rate 66 Respiratory Rate Respiratory Effort Respiratory Depth Respiratory Pattern Blood Pressure Blood Pressure Mean BP Systolic BP Diastolic Blood Pressure Source Blood Pressure Position Blood Pressure Location Pulse Ox 95 94 Oxygen Delivery Method 07/05/22 16:39 07/05/22 16:39 07/05/22 16:43 Temperature Temperature Source Pulse Rate 83 82 Respiratory Rate Respiratory Effort Respiratory Depth Respiratory Pattern Blood Pressure Blood Pressure Mean BP Systolic BP Diastolic Blood Pressure Source Blood Pressure Position Blood Pressure Location Pulse Ox 95 Oxygen Delivery Method 07/05/22 16:43 07/05/22 16:49 07/05/22 16:49 Temperature Temperature Source Pulse Rate 80 Respiratory Rate Respiratory Effort Respiratory Depth Respiratory Pattern Blood Pressure Blood Pressure Mean BP Systolic BP Diastolic Blood Pressure Source Blood Pressure Position Blood Pressure Location Pulse Ox 92 100 Oxygen Delivery Method 07/05/22 16:54 07/05/22 16:54 07/05/22 16:59 Temperature Temperature Source Pulse Rate 68 Respiratory Rate Respiratory Effort Respiratory Depth Respiratory Pattern Blood Pressure 122/71 H Blood Pressure Mean BP Systolic 122 BP Diastolic 71 Blood Pressure Source Blood Pressure Position Blood Pressure Location Pulse Ox 99 Oxygen Delivery Method 07/05/22 16:59 07/05/22 16:59 07/05/22 17:04 Temperature Temperature Source Pulse Rate 64 65 Respiratory Rate Respiratory Effort Respiratory Depth Respiratory Pattern Blood Pressure Blood Pressure Mean BP Systolic BP Diastolic Blood Pressure Source Blood Pressure Position Blood Pressure Location Pulse Ox 99 Oxygen Delivery Method 07/05/22 17:04 07/05/22 17:09 07/05/22 17:09 Temperature Temperature Source Pulse Rate 65 Respiratory Rate Respiratory Effort Respiratory Depth Respiratory Pattern Blood Pressure Blood Pressure Mean BP Systolic BP Diastolic Blood Pressure Source Blood Pressure Position Blood Pressure Location Pulse Ox 99 99 Oxygen Delivery Method 07/05/22 17:11 07/05/22 17:11 07/05/22 17:14 Temperature Temperature Source Pulse Rate 61 61 Respiratory Rate Respiratory Effort Respiratory Depth Respiratory Pattern Blood Pressure 131/65 H Blood Pressure Mean BP Systolic 131 BP Diastolic 65 Blood Pressure Source Blood Pressure Position Blood Pressure Location Pulse Ox Oxygen Delivery Method 07/05/22 17:14 07/05/22 17:19 07/05/22 17:19 Temperature Temperature Source Pulse Rate 72 Respiratory Rate Respiratory Effort Respiratory Depth Respiratory Pattern Blood Pressure Blood Pressure Mean BP Systolic BP Diastolic Blood Pressure Source Blood Pressure Position Blood Pressure Location Pulse Ox 100 100 Oxygen Delivery Method 07/05/22 17:24 07/05/22 17:24 07/05/22 17:29 Temperature Temperature Source Pulse Rate 68 59 L Respiratory Rate Respiratory Effort Respiratory Depth Respiratory Pattern Blood Pressure Blood Pressure Mean BP Systolic BP Diastolic Blood Pressure Source Blood Pressure Position Blood Pressure Location Pulse Ox 100 Oxygen Delivery Method 07/05/22 17:29 07/05/22 17:34 07/05/22 17:34 Temperature Temperature Source Pulse Rate 60 Respiratory Rate Respiratory Effort Respiratory Depth Respiratory Pattern Blood Pressure Blood Pressure Mean BP Systolic BP Diastolic Blood Pressure Source Blood Pressure Position Blood Pressure Location Pulse Ox 100 100 Oxygen Delivery Method 07/05/22 17:39 07/05/22 17:39 07/05/22 17:44 Temperature Temperature Source Pulse Rate 60 66 Respiratory Rate Respiratory Effort Respiratory Depth Respiratory Pattern Blood Pressure Blood Pressure Mean BP Systolic BP Diastolic Blood Pressure Source Blood Pressure Position Blood Pressure Location Pulse Ox 100 Oxygen Delivery Method 07/05/22 17:44 07/05/22 17:49 07/05/22 17:49 Temperature Temperature Source Pulse Rate 62 Respiratory Rate Respiratory Effort Respiratory Depth Respiratory Pattern Blood Pressure Blood Pressure Mean BP Systolic BP Diastolic Blood Pressure Source Blood Pressure Position Blood Pressure Location Pulse Ox 100 100 Oxygen Delivery Method 07/05/22 17:54 07/05/22 17:54 07/05/22 17:59 Temperature Temperature Source Pulse Rate 60 66 Respiratory Rate Respiratory Effort Respiratory Depth Respiratory Pattern Blood Pressure Blood Pressure Mean BP Systolic BP Diastolic Blood Pressure Source Blood Pressure Position Blood Pressure Location Pulse Ox 100 Oxygen Delivery Method 07/05/22 17:59 07/05/22 18:02 07/05/22 18:02 Temperature Temperature Source Pulse Rate 64 Respiratory Rate Respiratory Effort Respiratory Depth Respiratory Pattern Blood Pressure 130/80 H Blood Pressure Mean BP Systolic 130 BP Diastolic 80 Blood Pressure Source Blood Pressure Position Blood Pressure Location Pulse Ox 100 Oxygen Delivery Method 07/05/22 18:04 07/05/22 18:04 07/05/22 18:09 Temperature Temperature Source Pulse Rate 63 63 Respiratory Rate Respiratory Effort Respiratory Depth Respiratory Pattern Blood Pressure Blood Pressure Mean BP Systolic BP Diastolic Blood Pressure Source Blood Pressure Position Blood Pressure Location Pulse Ox 100 Oxygen Delivery Method 07/05/22 18:09 07/05/22 18:14 07/05/22 18:14 Temperature Temperature Source Pulse Rate 62 Respiratory Rate Respiratory Effort Respiratory Depth Respiratory Pattern Blood Pressure Blood Pressure Mean BP Systolic BP Diastolic Blood Pressure Source Blood Pressure Position Blood Pressure Location Pulse Ox 100 97 Oxygen Delivery Method 07/05/22 18:23 07/05/22 18:23 07/05/22 18:28 Temperature Temperature Source Pulse Rate 70 73 Respiratory Rate Respiratory Effort Respiratory Depth Respiratory Pattern Blood Pressure Blood Pressure Mean BP Systolic BP Diastolic Blood Pressure Source Blood Pressure Position Blood Pressure Location Pulse Ox 96 Oxygen Delivery Method 07/05/22 18:28 07/05/22 18:33 07/05/22 18:33 Temperature Temperature Source Pulse Rate 68 Respiratory Rate Respiratory Effort Respiratory Depth Respiratory Pattern Blood Pressure Blood Pressure Mean BP Systolic BP Diastolic Blood Pressure Source Blood Pressure Position Blood Pressure Location Pulse Ox 100 99 Oxygen Delivery Method 07/05/22 18:38 07/05/22 18:38 07/05/22 18:43 Temperature Temperature Source Pulse Rate 76 70 Respiratory Rate Respiratory Effort Respiratory Depth Respiratory Pattern Blood Pressure Blood Pressure Mean BP Systolic BP Diastolic Blood Pressure Source Blood Pressure Position Blood Pressure Location Pulse Ox 98 Oxygen Delivery Method 07/05/22 18:43 07/05/22 18:48 07/05/22 18:48 Temperature Temperature Source Pulse Rate 69 Respiratory Rate Respiratory Effort Respiratory Depth Respiratory Pattern Blood Pressure Blood Pressure Mean BP Systolic BP Diastolic Blood Pressure Source Blood Pressure Position Blood Pressure Location Pulse Ox 100 100 Oxygen Delivery Method 07/05/22 18:53 07/05/22 18:53 07/05/22 18:58 Temperature Temperature Source Pulse Rate 67 Respiratory Rate Respiratory Effort Respiratory Depth Respiratory Pattern Blood Pressure 140/80 H Blood Pressure Mean BP Systolic 140 BP Diastolic 80 Blood Pressure Source Blood Pressure Position Blood Pressure Location Pulse Ox 100 Oxygen Delivery Method 07/05/22 18:58 07/05/22 18:58 07/05/22 19:03 Temperature Temperature Source Pulse Rate 70 67 Respiratory Rate Respiratory Effort Respiratory Depth Respiratory Pattern Blood Pressure Blood Pressure Mean BP Systolic BP Diastolic Blood Pressure Source Blood Pressure Position Blood Pressure Location Pulse Ox 99 Oxygen Delivery Method 07/05/22 19:03 07/05/22 19:07 07/05/22 19:07 Temperature Temperature Source Pulse Rate 68 Respiratory Rate Respiratory Effort Respiratory Depth Respiratory Pattern Blood Pressure 146/88 H Blood Pressure Mean BP Systolic 146 BP Diastolic 88 Blood Pressure Source Blood Pressure Position Blood Pressure Location Pulse Ox 100 Oxygen Delivery Method 07/05/22 19:08 07/05/22 19:08 07/05/22 19:11 Temperature Temperature Source Pulse Rate 69 72 Respiratory Rate Respiratory Effort Respiratory Depth Respiratory Pattern Blood Pressure Blood Pressure Mean BP Systolic BP Diastolic Blood Pressure Source Blood Pressure Position Blood Pressure Location Pulse Ox 100 Oxygen Delivery Method 07/05/22 19:11 07/05/22 19:13 07/05/22 19:13 Temperature Temperature Source Pulse Rate 75 Respiratory Rate Respiratory Effort Respiratory Depth Respiratory Pattern Blood Pressure Blood Pressure Mean BP Systolic BP Diastolic Blood Pressure Source Blood Pressure Position Blood Pressure Location Pulse Ox 84 100 Oxygen Delivery Method 07/05/22 19:18 07/05/22 19:18 07/05/22 19:23 Temperature Temperature Source Pulse Rate 70 69 Respiratory Rate Respiratory Effort Respiratory Depth Respiratory Pattern Blood Pressure Blood Pressure Mean BP Systolic BP Diastolic Blood Pressure Source Blood Pressure Position Blood Pressure Location Pulse Ox 100 Oxygen Delivery Method 07/05/22 19:23 07/05/22 19:28 07/05/22 19:28 Temperature Temperature Source Pulse Rate 64 Respiratory Rate Respiratory Effort Respiratory Depth Respiratory Pattern Blood Pressure Blood Pressure Mean BP Systolic BP Diastolic Blood Pressure Source Blood Pressure Position Blood Pressure Location Pulse Ox 100 100 Oxygen Delivery Method 07/05/22 19:33 07/05/22 19:33 07/05/22 19:38 Temperature Temperature Source Pulse Rate 70 67 Respiratory Rate Respiratory Effort Respiratory Depth Respiratory Pattern Blood Pressure Blood Pressure Mean BP Systolic BP Diastolic Blood Pressure Source Blood Pressure Position Blood Pressure Location Pulse Ox 100 Oxygen Delivery Method 07/05/22 19:38 07/05/22 19:43 07/05/22 19:43 Temperature Temperature Source Pulse Rate 80 Respiratory Rate Respiratory Effort Respiratory Depth Respiratory Pattern Blood Pressure Blood Pressure Mean BP Systolic BP Diastolic Blood Pressure Source Blood Pressure Position Blood Pressure Location Pulse Ox 100 99 Oxygen Delivery Method 07/05/22 19:48 07/05/22 19:48 07/05/22 19:53 Temperature Temperature Source Pulse Rate 65 84 Respiratory Rate Respiratory Effort Respiratory Depth Respiratory Pattern Blood Pressure Blood Pressure Mean BP Systolic BP Diastolic Blood Pressure Source Blood Pressure Position Blood Pressure Location Pulse Ox 99 Oxygen Delivery Method 07/05/22 19:53 07/05/22 19:58 07/05/22 19:58 Temperature Temperature Source Pulse Rate 75 Respiratory Rate Respiratory Effort Respiratory Depth Respiratory Pattern Blood Pressure 144/80 H Blood Pressure Mean BP Systolic 144 BP Diastolic 80 Blood Pressure Source Blood Pressure Position Blood Pressure Location Pulse Ox 98 Oxygen Delivery Method 07/05/22 19:58 07/05/22 19:58 07/05/22 13:07 Temperature Temperature Source Temporal Pulse Rate 79 84 Respiratory Rate 18 Respiratory Effort Normal Non-Labored Respiratory Depth Normal Respiratory Pattern Normal Blood Pressure 153/86 H Blood Pressure Mean 108 BP Systolic BP Diastolic Blood Pressure Source Monitor Blood Pressure Position Semi-Fowlers Blood Pressure Location Right Arm Pulse Ox 98 97 Oxygen Delivery Method Room Air 07/05/22 13:17 07/05/22 13:27 07/05/22 13:40 Temperature Temperature Source Pulse Rate 78 80 77 Respiratory Rate 18 16 18 Respiratory Effort Normal Non-Labored Normal Non-Labored Normal Non-Labored Respiratory Depth Normal Normal Normal Respiratory Pattern Normal Normal Normal Blood Pressure 140/74 H 146/86 H 142/84 H Blood Pressure Mean 96 106 103 BP Systolic BP Diastolic Blood Pressure Source Monitor Monitor Monitor Blood Pressure Position Semi-Fowlers Semi-Fowlers Semi-Fowlers Blood Pressure Location Right Arm Right Arm Right Arm Pulse Ox 97 98 98 Oxygen Delivery Method Room Air Room Air Room Air 07/05/22 13:50 07/05/22 14:00 07/05/22 14:30 Temperature 97.6 F L Temperature Source Temporal Pulse Rate 78 81 80 Respiratory Rate 18 18 18 Respiratory Effort Normal Non-Labored Normal Non-Labored Normal Non-Labored Respiratory Depth Normal Normal Normal Respiratory Pattern Normal Normal Normal Blood Pressure 135/85 H 135/84 H 142/87 H Blood Pressure Mean 101 101 105 BP Systolic BP Diastolic Blood Pressure Source Monitor Monitor Monitor Blood Pressure Position Semi-Fowlers Semi-Fowlers Semi-Fowlers Blood Pressure Location Right Arm Right Arm Right Arm Pulse Ox 98 98 98 Oxygen Delivery Method Room Air Room Air Room Air 07/05/22 15:05 07/05/22 16:00 07/05/22 17:00 Temperature 96.9 F L Temperature Source Temporal Pulse Rate 77 75 67 Respiratory Rate 18 18 16 Respiratory Effort Normal Non-Labored Normal Non-Labored Normal Non-Labored Respiratory Depth Normal Normal Normal Respiratory Pattern Normal Normal Normal Blood Pressure 139/83 H 137/84 H 122/71 H Blood Pressure Mean 101 101 88 BP Systolic BP Diastolic Blood Pressure Source Monitor Monitor Monitor Blood Pressure Position Semi-Fowlers Semi-Fowlers Semi-Fowlers Blood Pressure Location Right Arm Right Arm Right Arm Pulse Ox 99 97 100 Oxygen Delivery Method Room Air Room Air Room Air 07/05/22 18:00 07/05/22 18:58 Temperature 97.0 F L 97.0 F L Temperature Source Temporal Temporal Pulse Rate 64 68 Respiratory Rate 18 18 Respiratory Effort Normal Non-Labored Normal Non-Labored Respiratory Depth Normal Normal Respiratory Pattern Normal Normal Blood Pressure 130/80 H 140/80 H Blood Pressure Mean 96 100 BP Systolic BP Diastolic Blood Pressure Source Monitor Monitor Blood Pressure Position Semi-Fowlers Semi-Fowlers Blood Pressure Location Right Arm Right Arm Pulse Ox 100 99 Oxygen Delivery Method Room Air Room Air Weight Weight: 234 lb Body Mass Index (BMI) 42.7 Physical Exam Const alert, oriented x3, no apparent distress and healthy appearing HEENT normocephalic and moist oral mucous membranes Head and Scalp: atraumatic Neck full ROM, no lymphadenopathy, supple and thyroid normal General: trachea midline Lymph Lymphatic: no lymphadenopathy noted Chest inspection of chest normal Resp normal respiratory effort Cardio regular rate GI normal to inspection, nondistended, normoactive bowel sounds, soft to palpation and non-tender Inspection: gravid external exam normal Manual OB Exam: estimated gestational size appropriate, presentation cephalic, dilated, effaced and station Extremity normal to inspection General Extremity: Negative for edema Skin no rashes or lesions noted Neuro no focal motor deficits and deep tendon reflexes 2+ bilaterally Motor Exam: strength 5/5 throughout and clonus absent Psych mental status grossly normal Labs Labs Labs: Blood Type A POSITIVE Antibody Screen NEGATIVE Hct 36.8 % (37-47) L Hgb 12.9 g/dL (12.0-15.0) Obstetrics US Syphilis Total Ab Non-reactive Rubella IgG Antibody Reactive (Nonreactive) Hep Bs Antigen Non-Reactive (Nonreactive) Chlamydia DNA ([place]) Negative (Negative) Neisseria gonorrhoeae DNA ([place]) Negative (Negative) HIV 1&2 Antibody Non-Reactive (Nonreactive) Glucose 1 Hr 50 gm 117 mg/dL (70-140) Rhogam given: No Assessment & Plan (1) Bipolar disorder: QUALIFIERS: Active/Remission status: currently active Current bipolar episode type: depressed Current episode severity: moderate Qualified Code(s): F31.32 - Bipolar disorder, current episode depressed, moderate COMMENT: Behavioral health appt 05/03/22 (2) H/O: : COMMENT: X 3, RLTCSBS scheduled for 08/02 @ 12 (3) Substance abuse: COMMENT: wkly NST @ 32 wks, growth US every 4 wks, deliver @ 38 due to h/o HTN. Not taking subutex. Appt [facility] 06/01/22 fentanyl/denies substance use since hospitalization 11/18/21. seeing [facility] in [facility] 06/20/22. (4) Smoker: COMMENT: 1.5ppd-counseled on quitting;down to half ppd (5) Positive GBS test: (6) Elevated blood pressure affecting in third trimester, antepartum: COMMENT: elevated pressures at home, normal blood pressures on L&D 120's/7 0's-60's (7) Contraception management: COMMENT: Wants BTO with CS. title 19 signed 06/10 (8) Back pain affecting in second trimester: COMMENT: A urine tox, cbc, cmp, and ua were ordered and found to be negative. kidney ultrasound showed mild left pyelectasis. (9) Supervision of high risk , antepartum: COMMENT: JUAN JOSE 08/16/22 PC:Eduardo Baeza Keoni. BF: Junior (10) : QUALIFIERS: Weeks of gestation: 32 weeks Qualified Code(s): Z3A.32 - 32 weeks gestation of COMMENT: anatomy nl, NIPT low risk, Need to discuss genetic screen. 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 Hospitalized, detox from fentynal at [facility]. in counseling at counseling center, has appt with psychiatrist (14) Chronic hypertension with superimposed preeclampsia: COMMENT: severe- admitted 34 weeks Magnesium sulfate, labetalol. fluid restriction. proceed with delivery. PLAN: Plan admit and proceed with HTN protocol and delivery. After discussing the patient's diagnosis and treatment plan options, patient wishes to proceed with surgical management. I have discussed with the patient the risks, benefits, and alternatives of the procedure which include but are not limited to risks of anesthesia, bleeding, infection, possible damage to bowel, bladder, or surrounding vasculature which could lead to additional surgery to evaluate any complications. Patient agrees to procedure and wishes to proceed. ACOG/uptodate references given for additional information regarding procedure. discussed duramorph in spinal- prevoius morphine allergysounds like more of intolerance, patient willing to attempt again, will give and give IV benadryl with it
--- NOTE | 2022-07-05 20:37 | FALS_PTH ---
PATIENT: NISH LINDSEY LOC: [facility] U#:[id number] AGE/SX: 31/F ROOM: WP013 RE07/05/[address]: Dr. Nitza Bowman MD : 1990 BED: 1 DIS: 07/07/2022 SPEC #: [id number] RECD: 07/05/22 22:37 STATUS: BEULAH EUNICE #: [id number] JAYLEN: 07/05/22 20:[address]: Nitza Bowman DEPT: SURGICAL PATHOLOGY RECD BY: Alo Rosales ENTERED: 07/08/22 08:47 SP TYPE: FALL TUBES OT DR: No Primary Care Phys Tissues: Fallopian tube Procedures: Surgery Specimen Level II HEADER OPERATION: Tubal ligation PRE-OP DIAGNOSIS: Tubal ligation TISSUE SUBMITTED: Fallopian tube MICROSCOPIC DIAGNOSIS Bilateral fallopian tubes, salpingectomy: Complete cross sections of bilateral fallopian tubes. Bilateral fallopian tubes with focal decidual change. AM:am 8/16/22 MICROSCOPIC DESCRIPTION Slides are reviewed. GROSS DESCRIPTION Received in fixative is one container labeled with the patient's name and designated bilateral fallopian tubes. The specimen consists of two tubular pieces of pink-ortega soft tissue with the right identified with a suture. The right fallopian tube measures 7.0 cm in length and 1.0 cm in diameter. The left fallopian tube measures 6.5 cm in length and 0.5 cm in diameter. Doughnut Machine Operator sections are submitted in two cassettes as follows: 1 - right fallopian tube, 2 - left fallopian tube. / ELIUD:emely 07/08/22 TC:5 CPT: 62177 x2
[2022-07-05] MEDS: DiphenhydrAMINE 50 MG/ML Syringe IV (20:50)
--- NOTE | 2022-07-05 21:22 | OP.PCM_ITS ---
Assessment & Plan (1) Chronic hypertension with superimposed preeclampsia: COMMENT: severe- admitted 34 weeks Magnesium sulfate, labetalol. fluid restriction. proceed with delivery. (2) Suicide attempt: COMMENT: 10/2021. Hospitalized, detox from fentynal at [facility]. in counseling at counseling center, has appt with psychiatrist (3) Hypertension: QUALIFIERS: Hypertension type: unspecified Qualified Code(s): I10 - Essential (primary) hypertension COMMENT: stopped losartan when found out (4) HSV-2 seropositive: COMMENT: valtrex at 36 wk (5) : QUALIFIERS: Weeks of gestation: 32 weeks Qualified Code(s): Z3A.32 - 32 weeks gestation of COMMENT: anatomy nl, NIPT low risk, Need to discuss genetic screen. Will do this with remaining STD labs 04/30/22, Carrier negative (6) Supervision of high risk , antepartum: COMMENT: JUAN JOSE 08/16/22 PC:Eduardo Baeza Keoni. BF: Junior (7) Back pain affecting in second trimester: COMMENT: A urine tox, cbc, cmp, and ua were ordered and found to be negative. kidney ultrasound showed mild left pyelectasis. (8) Contraception management: COMMENT: Wants BTO with CS. title 19 signed 06/10 (9) Elevated blood pressure affecting in third trimester, antepartum: COMMENT: elevated pressures at home, normal blood pressures on L&D 120's/70's-60's (10) Positive GBS test: (11) Smoker: COMMENT: 1.5ppd-counseled on quitting;down to half ppd (12) H/O: : COMMENT: X 3, RLTCSBS scheduled for 08/02 @ 12 (13) Substance abuse: COMMENT: wkly NST @ 32 wks, growth US every 4 wks, deliver @ 38 due to h/o HTN. Not taking subutex. Appt [facility] 06/01/22 fentanyl/denies substance use since hospitalization 11/18/21. seeing Lola in [facility] 06/20/22. (14) Bipolar disorder: QUALIFIERS: Active/Remission status: currently active Current bipolar episode type: depressed Current episode severity: moderate Qualified Code(s): F31.32 - Bipolar disorder, current episode depressed, moderate COMMENT: Behavioral health appt 05/03/22 (15) delivery delivered: COMMENT: 34 RLTCSBS SM severe preeclampsia boy Junior Almanza (16) Status post bilateral salpingectomy: Maternal Data Information JUAN JOSE Calculator Estimated Delivery Date Method Current WG Current Estimate 08/16/22 Ultrasound #1 34w 0d Other Estimates 08/06/22 LMP (Uncertain) 35w 3d Final JUAN JOSE Source: LMP Details Operative Information Date of Procedure: 07/05/22 Pre-Operative Diagnosis: Previous desires sterilization Post-Operative Diagnosis: same Indications for : Repeat Elective and Desires elective sterilization Classification: Scheduled Procedure Type: low transverse (and bilateral salpingectomy) clothes presser #1: Yesi Gomez Type of Anesthesia: Spinal Special Medications: none Antibiotic Given: Ancef 2 grams IV x1 Drain: Arredondo to straight drain Estimated Blood Loss: 800 Fluids Replaced: crystalloid Findings Description of Procedure: Spinal anesthesia was placed without difficulty. Arredondo catheter was placed. The patient was placed in the dorsal supine position with leftward tilt. Patient was prepped and draped in the normal sterile fashion. Pfannenstiel skin incision was made with the scalpel and carried through to the underlying layer of fascia with the scalpel. Fascia was nicked in the midline and the incision extended laterally. The rectus bellies were dissected off superiorly and inferiorly with out complication both sharply and bluntly. The peritoneum was entered digitally. The incision was stretched and a low transverse uterine incision was made with the scalpel. The 's head was delivered atraumatically followed by the anterior and posterior shoulders without complication the rest of the delivered. The cord was clamped and cut and the was handed off to awaiting nurse. The placenta was delivered spontaneously immediately following and was noted to be intact and have a three- vessel cord. The uterus was exteriorized cleared of all clots and debris, and the incision was closed in a single layer closure using #1 Monocryl. The ovaries and fallopian tubes were noted to be within normal limits. Patient had desired sterilization and was counseled preoperatively regarding irreversibility and permanency. Therefore bilateral fallopian tubes were elevated and transected across using a LigaSure device starting proximally to distally without complication the entire fallopian tubes were removed. The uterus was returned to the maternal abdomen and gutters were cleared of all clots and debris. lita placed on incision for hemostasis The peritoneum was closed with 3-0 Monocryl in a running fashion. Gloves were changed prior to fascial closure. Fascia was closed with 0 PDS in a running fashion. Subcutaneous tissue was copiously irrigated and the skin was closed with 3-0 Monocryl in a subcuticular fashion. Mepilex dressing was applied without complication. Patient was taken to recovery in stable condition. Presentation: Positive for Vertex Amniotic Membrane Rupture Type: Artificial Amniotic Fluid Description: Clear Placenta Disposition: [facility] Cord Vessel Description: 3 Vessels Cord Entanglement: None Cord Gases: ABG and VBG Infant A Gender: Male Delayed Cord Clamping: Yes Complications Risks of Surgery Discussed w/Patient: Bleeding, Infection, Need for Future C-Sections and Injury to surrounding structure(s) including bowel and bladder Vaginal Delivery Operative Information Date of Procedure: 07/05/22 Complication Complications: None Admit VTE Documentation VTE Present on Admission: No VTE Mechan Device Prophylaxis: SCD's Multi Select Codes Urinary/Genital Urinary/Genital CPT Codes: 36981 C/S+TL (bilateral salpingectomy) and 89262 care after delivery(LUX)
--- NOTE | 2022-07-05 21:27 | DCINST_ITS ---
Discharge Instructions Diet Discharge Diet: No restrictions Activity Discharge Activity: Return to Normal Activity, May Drive (when pain free and off narcotic pain meds), May Shower and May Take a Tub Bath (in 4 weeks) May resume sexual activity in: 6 weeks Weight Bearing Status: Full weight bearing Lifting Restrictions: under 30 lbs for 6 weeks Dressing / Incision Call your doctor if your incision/area has: Continuous Slow Oozing, Sudden Increased Bleeding, Increased Pain/ Swelling, Increased Redness, Foul Smelling Discharge and - Call your doctor if you observe: Fever of 101 or Higher, Using more than 1 pad per hour, Shortness of breath, Chest pain and Uncontrolled pain Suture Line Care: Avoid Pulling/Pushing and Avoid Pinching/Bending Change Dressing in: 1 week (leave open to air after removed) Remove Dressing in: 1 week (if present) Cleanse incision/area with: Soap & Water and Keep Dressing Clean & Dry Follow Up Care Please Follow Up With: Nitza Bowman MD When: Call to make an appointment with your doctor for a postop visit in 2 and 6 weeks. Test Results: Test results from this visit will be discussed in further detail at your follow- up appointment, if applicable. Discharge Plan Admission Admit Date/Time: 07/05/22 13:30 Attending Provider: Nitza Bowman Primary Care Provider: Care Physician,Ines Primary Discharge Orders/Prescriptions Prescriptions: No Action sertraline [Zoloft] 100 mg tablet 100 mg PO DAILY buprenorphine HCl 2 mg tablet, sublingual 6 mg sublingual DAILY prenat.vits,alfonso,uow-[id number] Tablet 1 tab PO DAILY Referrals / Follow Up: Care Physician,Ines Primary [Primary Care Provider] -
[2022-07-05] MEDS: Oxytocin 30 units/NS 500 ml 30 UNITS/500 ML IV.SOLN 167 UNITS IV (21:37)
[2022-07-05] MEDS: Ketorolac 30 MG/ML Syringe IV (22:08)
[2022-07-05 22:35] LABS: Pathology Specimen OB SEE PATHOLOGY REPORT
[2022-07-05] MEDS: Buprenorphine HCl 2 MG TAB.SUBL SL (22:41)
[2022-07-06] VITALS (21 sets, daily range): BP systolic 118–152; BP diastolic 71–93; PULSE 65–90; RESP 16–18; TEMP 35.8–36.8; O2SAT 93–98
[2022-07-06] MEDS: Magnesium Sulfate 20 GM/500 ML BAG IV ×3 (00:04→19:27)
[2022-07-06] MEDS: Lactated Ringers 1,000 ML 15 ML IV (00:38)
[2022-07-06] MEDS: Acetaminophen 500 MG Tablet 1000 MG PO ×4 (00:38→17:33)
[2022-07-06] MEDS: Ketorolac 30 MG/ML Syringe IV ×3 (04:22→16:04)
[2022-07-06 06:26] LABS: Hematocrit 33.3 % (37-47); Hemoglobin 11.2 g/dL (12.0-15.0); Mean Corp Hgb Conc 33.6 g/dL (32-36); Mean Corpuscular Hgb 31.9 pg (27.0-32.0); Mean Corpuscular Volume 94.9 fL (81-99); Mean Platelet Vol. 10.1 fl (6.2-12.0); Platelet Count 170 K/mm3 (150-450); RBC Distribution Width CV 13.1 % (11.6-14.6); RBC Distribution Width SD 44.8 fl (35.1-43.9); Red Blood Count 3.51 M/mm3 (4.2-5.4); White Blood Count 13.2 K/mm3 (4.4-11.0)
--- NOTE | 2022-07-06 06:43 | PCM.PN.OB ---
Subjective Subjective Patient doing well without complaints. Tolerating PO. Ambulating and voiding without difficulty. feeding well. Denies chest pain, shortness of breath, calf pain/swelling, fevers, chills, lightheadedness. Objective Data Objective Data Vital Signs: Vital Signs Temp Pulse Resp BP Pulse Ox O2 Del Method 97.7 F L 85 16 129/83 H 93 Room Air 07/06/22 04:20 07/06/22 04:20 07/06/22 04:20 07/06/22 04:20 07/06/22 04:20 07/06/22 04:20 Oxygen Delivery Method Room Air Weight: 234 lb Body Mass Index (BMI) 42.7 Intake & Output: Intake and Output for Last 24 Hours 07/04/22 07/05/22 07/06/22 23:59 23:59 23:59 Intake Total 2084.16 / 2084.16 857.08 / 857.08 Output Total 1600 / 1600 Balance 484.16 / 484.16 857.08 / 857.08 Lab / Micro Data Result Diagrams: 07/06/22 06:19 07/05/22 12:50 Labs: Laboratory Results - last 24 hr 07/05/22 12:50: Urine Color Yellow, Urine Clarity Sl. Cloudy, Urine pH 6.5, Ur Specific [place] 1.010, Urine Protein Negative, Urine Glucose (UA) Normal, Urine Ketones 15 H, Urine Occult Blood Negative, Urine Nitrite Negative, Urine Bilirubin Negative, Urine Urobilinogen Normal, Ur Leukocyte Esterase Negative, Urine RBC 0 SEEN, Urine WBC 0 SEEN, Ur Squamous Epith Cells 0-5 SEEN, Urine Bacteria 0 SEEN, Urine Mucus 0 SEEN 07/05/22 12:50: Syphilis Total Ab Non-reactive, Rubella IgG Antibody Reactive 07/05/22 12:50: Blood Type A POSITIVE, Antibody Screen NEGATIVE 07/05/22 12:50: U Random Total Protein 20.1 H, Urine Creatinine 96.10, Protein/Creatinin Ratio 209 H 07/05/22 12:50: Creatinine 0.58, Estim Creat Clear Calc 111.15, Est GFR (MDRD) Af Amer 157, Est GFR (MDRD) Non-Af 130, Uric Acid 3.4, AST 17, ALT 14 07/05/22 12:50: Hep Bs Antigen Non-Reactive, Hepatitis C Antibody Non-Reactive, HIV 1&2 Antibody Non-Reactive 07/05/22 12:50: Urine Opiates Screen NEGATIVE, Urine Methadone Screen NEGATIVE, Ur Barbiturates Screen NEGATIVE, Ur Phencyclidine Scrn NEGATIVE, Ur Amphetamines Screen NEGATIVE, MDMA (Ecstasy) Screen NEGATIVE, U Benzodiazepines Scrn NEGATIVE, Urine Cocaine Screen NEGATIVE, U Cannabinoids Screen NEGATIVE, Ur Drug Screen Comment 07/05/22 12:50: WBC 13.4 H, RBC 4.00 L, Hgb 12.9, Hct 36.8 L, MCV 92.0, MCH 32.3 H, MCHC 35.1, RDW Std Deviation 42.5, RDW Coeff of Priscila 12.8, Plt Count 211, MPV 10.3, Immature Gran % (Auto) 2.400 H, Neut % (Auto) 67.8, Lymph % (Auto) 19.6, Crane % (Auto) 7.8, Eos % (Auto) 1.8, Baso % (Auto) 0.6, Absolute Neuts (auto) 9.1 H, Absolute Lymphs (auto) 2.62, Nucleated RBC % 0 07/05/22 12:50: Ur Buprenorphine Scrn Positive H, Ur Drug Screen Comment 07/06/22 06:19: WBC 13.2 H, RBC 3.51 L, Hgb 11.2 L, Hct 33.3 L, MCV 94.9, MCH 31.9, MCHC 33.6, RDW Std Deviation 44.8 H, RDW Coeff of Priscila 13.1, Plt Count 170, MPV 10.1 Micro: Microbiology 07/05/22 13:05 Nasal Secretion SARS-CoV-2 Antigen (Rapid) - Final ROS Constitutional Constitutional: Reports systems reviewed and no addt'l complaints, except as documented Cardiovascular Cardiovascular: Reports systems reviewed and no addt'l complaints, except as documented Respiratory/Chest Respiratory/Chest: Reports systems reviewed and no addt'l complaints, except as documented Gastrointestinal Gastrointestinal: Reports systems reviewed and no addt'l complaints, except as documented Physical Exam Const alert, oriented x3 and no apparent distress HEENT Head and Scalp: atraumatic Resp normal respiratory effort GI soft to palpation and non-tender Inspection: incision intact, healing well and drainage (none) Bimanual Exam - Vag & Uterus: uterus non-tender Uterus Palpation: uterus fundus firm (below Umbilicus) Assessment & Plan (1) Bipolar disorder: QUALIFIERS: Active/Remission status: currently active Current bipolar episode type: depressed Current episode severity: moderate Qualified Code(s): F31.32 - Bipolar disorder, current episode depressed, moderate COMMENT: Behavioral health (2) Substance abuse: COMMENT: wkly NST @ 32 wks, growth US every 4 wks, deliver @ 38 due to h/o HTN. Not taking subutex. Appt [facility] 06/01/22 fentanyl/denies substance use since hospitalization 11/18/21. seeing [facility] in [facility] 06/20/22. PLAN: continue subutex, prn pain medication in addition (3) Chronic hypertension with superimposed preeclampsia: COMMENT: severe- admitted 34 weeks Magnesium sulfate, labetalol. fluid restriction. proceed with delivery. (4) delivery delivered: COMMENT: 34 RLTCSBS SM severe preeclampsia boy Junior Almanza (5) Status post bilateral salpingectomy: PLAN: Plan s/p LTCS PPD # 1 1. routine post care 2. breast feeding- support given 3. rh positive 4. rubella immune
[2022-07-06] MEDS: Enoxaparin 40 MG/0.4 ML Syringe SC ×2 (09:52→21:49)
[2022-07-06] MEDS: Sertraline 100 MG Tablet PO (09:52)
[2022-07-06] MEDS: Prenatal Vits Tablet 1 TABLET PO (09:52)
[2022-07-06] MEDS: Buprenorphine HCl 2 MG TAB.SUBL 4 MG SL (09:53)
[2022-07-06] MEDS: Senna/Docusate Sodium 1 Tablet PO (12:11)
[2022-07-06] MEDS: NIFEdipine 30 MG Tablet PO (19:22)
[2022-07-06] MEDS: oxyCODONE 5 MG Tablet PO (19:53)
--- NOTE | 2022-07-06 20:00 | CASEMGMT ---
Addendum entered by Justina Higuera 07/07/22 01:19: WIC referral made. Original Note: Social Work Note Reason for Referral: Pt with history of Fentanyl Use and Subutex use. SW spoke with human resources intern. KYLE's baby transferred to [facility] MOB: Andi Rodriguez G/P: 06/26 PNC: Dr. Clarissa Schwab Control: MOB states she got her tubes tied Baby: Boy - Junior Combine Driver: Gustavo Chris at [facility]. MOB states she plans to feed combination KYLE's other Children: KYLE reports to have three other children of her own and states the FOB Junior has three children of his own, so that makes it seven total children. KYLE's biological children include: Aryan Castro - 15 years old Ramon Mendoza - 12 years old Angel Paul - 5 years old. MOB reports to have custody of all her children. MOB reports no open CPS cases. MOB states that she was involved in CPS with his current . MOB states that Junior has three children of his own and two of them, MOB and FOB have filed for emergency custody through a [employer]. MOB states that Junior's children are all staying at the home too. MOB states that Junior is watching all of the children at this time. The three children of Silvanos are as followed: Jacqui Ling - 7 years old Donald Man - 7 years old Cinthia Man - 4 years old. MOB states that their biological mother is Deedee Singh. Deedee is currently living with her sister Krystyna Singh at the [facility] in [place]. Paulines number is [phone]. MOB states that Deedee has had open CPS cases before and states that the youngest child OD in the past and almost . MOB states that they are doing every other week visitation with the two children Donald and Cinthia. MOB states that one week they will have the two children and then the other week Deedee will have the children. MOB states that Friday they dropped Donald and Cinthia off at [facility] and on Friday Deedee had a court hearing so she left her two children Addie and Cinthia to be watched by her sister Krystyna. MOB states that Krystyna became drunk and accused Deedee of stealing her car and doing drugs. MOB states that that is not true and Krystyna admits that she gave Deedee permission to use her car to get food for the babies. BRITTANY informed MOB that this worker will be calling CPS to let them know that Donald and Cinthia was left with Krystyna who then became drunk. MOB states that she and Junior were called to come and get the children and they are still at their house to this day. MOB states that Deedee is currently in [place] with her mother. MOB states that her and Junior have a summer child caregiver who is filing a motion for emergency custody of Camyah and Donald. Housing: MOB states no concerns Transportation: MOB states she has access to transportation Supplies: MOB reports to have all needed supplies for the baby. Education Level: MOB states she did not graduate high school, states she did get her GED. MOB states that she did ago to some college. MOB states that she was working at [employer] for seven years but states that due to her complicated she ran out of medical leave so she was let go. MOB states that she is looking at it as a new opportunity and a new way to get a different job. Agency Involvement: MOB states to be active with [employer]. KYLE does have [employer] insurance. MOB states that she was also planning on getting signed up for WIC but has not done so yet. SW informed KYLE that this worker can make WIC referral for her, MOB agreeable. MOB denied wanting a Help Me Grow Referral. MOB states that during this she did have an open CPS case at a time. MOB states that she thought she was using Percocet but states that it was actually Fentanyl that she was using. MOB states that she was at [place] trying to get help and they wouldn't listen to her, so she walked out and they called CPS. MOB states that her CPS worker was Zarina Muniz and states that she she was out once and then her case was closed. MOB reports no active CPS case at this time. FOB: Fox Donovan Age 26 Time Together: Over two years Involved at : MOB reports FOB will be involved at Employment: [employer] Other Children: Three other children as listed above - Jacqui Ling, Donald Man, Cinthia Man FOB Mental Health H/AOD/ Domestic Violence: MOB states FOB has No Mental Health or AOD history. MOB reports no Domestic Violence Concerns. Maternal Mental Health Hx: MOB reports PTSD, Depression, Anxiety, Bipolar, Borderline Personality Disorder. MOB states that she takes Zoloft. MOB states that she has health coping mechanisms. MOB states that she is currently going to [facility] for outpatient services. MOB states that she is there every Friday and states that she is there for about 2-4 hours. MOB states that she see's a lot of mental health professionals there including Doctor, Couselor, Clinician. MOB states that she loves going to [facility] and states that she plans on going to her appointment next Friday. MOB states she has been going to [facility] for about two months. MOB states no current suicidal/homicidal thoughts/plans/ideations. MOB states that in September 2021 she came to [facility] for the [facility] detox program. MOB states that she does have history of suicide attempts and states that the last attempt was in either 2011 or 2012. MOB states that she has to be hospitalized at [place]. MOB then states though that in October of 2021 she had suicidal thoughts and took a handful of ibuprofen. MOB states nothing happened. MOB states that she decided then that she needed to get help and states that she came to [facility] for help. MOB states no recent suicidal thoughts/plans/ MOB states no current suicidal thoughts/plans/ideations. AOD History: MOB states that she started using Fentanyl in September 2021 and stopped using December 2021. MOB states that she thought she was using Percocet but states that she knew they were not Percocet when she started to withdrawal. MOB states no other substance use and states she only every took prescribed medications before September 2021. MOB states that she was going to [place] for Subutex but again states she did not get a long well with them and states that they would not listen to her. MOB states that she tried to take herself off of Subutex and ended up withdrawing for about three weeks while . MOB states that she is currently still taking Subutex and states that it is being managed through [facility]. MOB states that she eventually wants to get completely off Subutex and states that [facility] is willing to help with that. Per Tox Screen, MOB tested positive for Buprenorphine. Per chart, pt does currently smoke cigarettes daily. MOB states that she stopped taking Fentanyl in December 2021 when she found out that she was . MOB again states no other substance use during . MOB states that when she was using Fentanyl, MOB states that she never used around her children, states that she would go outside and use. MOB states that Junior would watch her children when she would use. As noted above, MOB reporting that FOB Junior is sober support and denied any substance use/abuse for Junior. SW spoke with MOB regarding Shaken Baby, PPD, Safe Sleeping and provided education. Resource packet provided to pt. SW placed a call to [facility] CPS and provided CPS referral to Chris regarding the incident that took place over the weekend involving Junior's Children's Donald and Cinthia Man. Referral to [facility] to be made. SW to call [facility] CPS Friday and provided referral on pt and pt's Fentanyl use. SW to call NICU SW at [facility] on Friday to provide handoff. Plan: Home: WIC referral to be made. Referral to [facility] CPS to be made. Handoff to NICU SW at [facility] to be made. Justina Higuera SILK SCREEN FRAME ASSEMBLER, HVAC DESIGN MECHANICAL ENGINEER
[2022-07-06] MEDS: Buprenorphine HCl 2 MG TAB.SUBL SL (21:49)
[2022-07-06] MEDS: Naproxen 500 MG Tablet PO (21:49)
[2022-07-06] MEDS: 0.9% Saline Lock 10 ML Syringe IV (21:50)
[2022-07-07] VITALS (7 sets, daily range): BP systolic 128–139; BP diastolic 79–85; PULSE 65–81; RESP 18; TEMP 36.2–36.8; O2SAT 96–100
[2022-07-07] MEDS: Acetaminophen 500 MG Tablet 1000 MG PO ×3 (00:45→12:00)
[2022-07-07] MEDS: oxyCODONE 5 MG Tablet PO (03:46)
[2022-07-07] MEDS: Naproxen 500 MG Tablet PO ×2 (05:34→14:08)
--- NOTE | 2022-07-07 07:49 | PCM.PN.OB ---
Subjective Subjective headache improved with percocet somewhat, magnesium off. pain ctonrolled Objective Data Objective Data Vital Signs: Vital Signs Temp Pulse Resp BP Pulse Ox O2 Del Method 97.2 F L 81 18 139/83 H 96 Room Air 07/07/22 05:30 07/07/22 05:36 07/07/22 05:30 07/07/22 05:36 07/07/22 05:30 07/07/22 05:30 Oxygen Delivery Method Room Air Weight: 234 lb Body Mass Index (BMI) 42.7 Intake & Output: Intake and Output for Last 24 Hours 07/05/22 07/06/22 07/07/22 23:59 23:59 23:59 Intake Total 2084.16 / 2084.16 2814.17 / 2814.17 Output Total 1600 / 1600 945 / 945 Balance 484.16 / 484.16 1869.17 / 1869.17 Lab / Micro Data Result Diagrams: 07/06/22 06:19 07/05/22 12:50 Labs: Laboratory Results - last 24 hr 07/06/22 : Shaq-Betke F Hgb Micro: Microbiology 07/05/22 13:05 Nasal Secretion SARS-CoV-2 Antigen (Rapid) - Final ROS Constitutional Constitutional: Reports systems reviewed and no addt'l complaints, except as documented Cardiovascular Cardiovascular: Reports systems reviewed and no addt'l complaints, except as documented Respiratory/Chest Respiratory/Chest: Reports systems reviewed and no addt'l complaints, except as documented Gastrointestinal Gastrointestinal: Reports systems reviewed and no addt'l complaints, except as documented Physical Exam Const alert, oriented x3 and no apparent distress HEENT Head and Scalp: atraumatic Resp normal respiratory effort GI soft to palpation and non-tender Inspection: incision intact, healing well and drainage (none) Bimanual Exam - Vag & Uterus: uterus non-tender Uterus Palpation: uterus fundus firm (below Umbilicus) Assessment & Plan (1) Status post bilateral salpingectomy: (2) delivery delivered: COMMENT: 34 RLTCSBS SM severe preeclampsia boy Junior Jr (3) Chronic hypertension with superimposed preeclampsia: COMMENT: procardia started PP. severe- admitted 34 weeks s/p Magnesium sulfate, labetalol. s/p delivery. (4) Substance abuse: COMMENT: continue subutex. oxy IR for breakthrough pain and tylenol, naproxen. (5) Bipolar disorder: QUALIFIERS: Active/Remission status: currently active Current bipolar episode type: depressed Current episode severity: moderate Qualified Code(s): F31.32 - Bipolar disorder, current episode depressed, moderate COMMENT: Behavioral health PLAN: Plan s/p LTCS PPD # 2 1. routine post care 2. bottle feeding 3. rh positive 4. rubella immune
[2022-07-07] MEDS: Senna/Docusate Sodium 1 Tablet PO (10:05)
[2022-07-07] MEDS: Sertraline 100 MG Tablet PO (10:05)
[2022-07-07] MEDS: NIFEdipine 30 MG Tablet PO (10:06)
[2022-07-07] MEDS: Prenatal Vits Tablet 1 TABLET PO (10:06)
[2022-07-07] MEDS: Enoxaparin 40 MG/0.4 ML Syringe SC (10:06)
[2022-07-07] MEDS: Buprenorphine HCl 2 MG TAB.SUBL 4 MG SL (10:06)
--- NOTE | 2022-07-07 14:06 | NURSING ---
Call placed to Dr. Bowman to update on blood pressures. Patient can be discharged per Dr. Bowman.
--- NOTE | 2022-07-09 11:15 | CASEMGMT ---
Social Work Note Patricia NIXON emailed this worker to let this worker know that she called [facility] CPS and the NICU SW at [facility]. Justina Higuera ELECTROPLATER HELPER, HYDROSTATIC TESTER
--- NOTE | 2022-07-22 13:35 | CM.ED ---
SW received letter from [facility] that referral was accepted and the assigned plant tech was Zarina Bingham. Patricia BOND
--- NOTE | 2022-07-24 12:38 | CM.ED ---
Letter from [facility] CSB. Investigative case closed. Patricia BOND
== END 2022-07-07 16:20 | disposition home or self-care (01) | DRG 539 ==
LOC: WPOUT 13:32 → WP 13:32
PROVIDERS: Pediatrics; Admitting Provider Obstetrics & Gynecology; Visit Provider Obstetrics & Gynecology
DX: O11.4 Pre-existing hypertension with pre-eclampsia, complicating childbirth (principal); O98.82 Other maternal infectious and parasitic diseases complicating childbirth; F31.32 Bipolar disorder, current episode depressed, moderate; F17.210 Nicotine dependence, cigarettes, uncomplicated; K21.9 Gastro-esophageal reflux disease without esophagitis; F41.9 Anxiety disorder, unspecified; Z37.0 Single live birth; Z3A.34 34 weeks gestation of pregnancy; O99.344 Other mental disorders complicating childbirth; O99.62 Diseases of the digestive system complicating childbirth; Z87.442 Personal history of urinary calculi; Z79.899 Other long term (current) drug therapy; O99.334 Smoking (tobacco) complicating childbirth; B95.1 Streptococcus, group B, as the cause of diseases classified elsewhere; Z91.51 Personal history of suicidal behavior; O10.02 Pre-existing essential hypertension complicating childbirth; O34.219 Maternal care for unspecified type scar from previous cesarean delivery; Z30.2 Encounter for sterilization
CPT/HCPCS: 59025; 59050; 80307; 81001; 82565; 82570; 84156; 84450; 84460; 84550; 85025; 85027; 85460; 86703; 86762; 86780; 86803; 86850; 86900; 86901; 87340; 87426; 88302; 99218; J7120; A4216; G0378

== ENCOUNTER 2022-08-25 20:11 | Emergency (ER) | payer MEDICAID, SELFPAY ==
[2022-08-25 20:12] VITALS: BP 148/103; PULSE 98; RESP 18; TEMP 35.7; O2SAT 94; BMI 40.2
--- NOTE | 2022-08-25 20:37 | RAD_ITS ---
STUDY: X-RAY CHEST REASON FOR EXAM: Female, 31 years old. cough TECHNIQUE: Single AP portable view of the chest. COMPARISON: 10/25/2015 FINDINGS: The lungs are clear and expanded. There is no demonstrated pleural abnormality. Normal size heart. Normal mediastinum and lay. Normal visualized pulmonary arteries. Normal visualized aortic arch and descending thoracic aorta. Normal visualized thoracic spine. Normal visualized ribs, clavicles, and shoulders. There is no demonstrated abnormality of the visualized soft tissue structures of the upper abdomen. RAD/Chest 1 View (Portable) IMPRESSION: Normal x-ray examination of the chest. Electronically Signed: Azael Pringle MD at 21:21 EDT ,
--- NOTE | 2022-08-25 20:38 | EDS_ITS ---
HPI History of Present Illness Chief Complaint: Headache Detail of Chief Complaint: URI symptoms also. Informant: patient Onset/Context/Timing Onset: Days Context: Gradual Timing: Intermittent Current Severity: Mild Maximum Severity: Mild Associated Symptoms/Injury Associated Symptoms: Positive for Sore Throat and Sinus Pressure; Negative for Fever, Nausea, Vomiting, Numbness, Tingling, Preceding Aura, Visual Changes, Blurred Vision, Photophobia or Visual Loss Injury - ANAND: Negative for Direct Trauma, Fall or Assault Narrative Narrative: 31-year-old female history of bipolar, anxiety, migraine headaches, hypertension and had a 7 weeks ago at 34 weeks due to preeclampsia. She has been doing well. Last several days developed a cough and sore throat which has been taken DayQuil. She has had intermittent headaches and has a history of migraines but says this feels different. Denies any fall or trauma. She was previously on blood pressure medications. They stopped those during her and she has not been restarted on those. She was on Procardia during the and that is since been stopped. Prior similar symptoms: No Recent Illness/Hospitalization: No PFSH PFSH Medical History Anxiety Bipolar disorder delivery delivered Chronic hypertension with superimposed preeclampsia Chronic pain Depression Desire for detoxification Genital herpes affecting GERD (gastroesophageal reflux disease) Kidney stones Migraines Positive GBS test Smoker Substance abuse Home Medications sertraline 100 mg tablet (Zoloft) 100 mg PO DAILY anxiety, depression 05/16/22 [History Last Taken 07/04/22] buprenorphine HCl 2 mg sublingual tablet 6 mg sublingual DAILY hx drug use 06/10/22 [History Last Taken 07/05/22] prenat.vits,alfonso,all-lmun-wiold 1 tab PO DAILY 07/05/22 [History Last Taken 07/04/22] blood pressure monitor (Blood Pressure Kit) #1 ea 07/07/22 [Rx Last Taken Unknown] naproxen 250 mg tablet 250 - 500 mg PO Q8H PRN PRN MILD PAIN #30 tabs 07/07/22 [Rx Last Taken Unknown] nifedipine 30 mg tablet,extended release 24 hr (Procardia XL) 60 mg PO DAILY 07/18/22 [History Last Taken Unknown] lisinopril 10 mg tablet 10 mg PO DAILY #30 tabs 08/25/22 [Rx Last Taken Unknown] Allergy/AdvReac Type Severity Reaction Status Date / Time latex Allergy Itching Verified 08/25/22 20:12 meperidine HCl [From Demerol] Allergy Hives Verified 08/25/22 20:12 acetaminophen AdvReac Vomiting Verified 08/25/22 20:12 [From Tylenol-Codeine #3] codeine phosphate AdvReac Vomiting Verified 08/25/22 20:12 [From Tylenol-Codeine #3] morphine AdvReac Vomiting Verified 08/25/22 20:12 Family History Other Anxiety Depression Hypertension Surgical History H/O: History of cholecystectomy Status post bilateral salpingectomy Social History household members: children number of children: 4 current occupational status: employed current occupation: [employer] pets and animals: No Smoking Status: Current every day smoker tobacco type: cigarettes alcohol intake: current alcohol intake frequency: holidays/special occasions only substance use type: former substance user Date of last use: fentanyl. last used 11/18/21 ROS ROS ED ROS Narrative Headache. Cough. Sore throat. Review of Systems ROS Unobtainable: Denies due to encephalopathy Constitutional Constitutional ED: Denies chills or fever(s) Eyes Eyes: Denies blurry vision ENT ENT ED: Reports sore throat; Denies ear pain Cardiovascular Cardiovascular: Denies chest pain or palpitations Respiratory/Chest Respiratory/Chest: Reports cough Gastrointestinal Gastrointestinal: Denies abdominal pain, constipation, diarrhea, melena, nausea or vomiting Genitourinary Genitourinary ED: Denies dysuria or hematuria Musculoskeletal Musculoskeletal: Denies arthralgias Integumentary Denies abscess Neurologic Neurologic: Denies headache(s) Psychiatric Psychiatric: Denies anxiety Endocrine Endocrinology: Denies polydipsia Hematologic/Lymphatic Hematologic/Lymphatic: Denies easy bleeding Allergic/Immunologic Allergic/Immunologic ED: Denies mouth swelling or tongue swelling EXAM Physical Exam Narrative Exam Narrative: 81-year-old female no acute distress. Vital signs stable initial blood pressure 141/3. She does not look septic or toxic. She is in no acute distress. H EENT exam unremarkable. Posterior pharynx normal. No erythema or exudate. No trouble swallowing or breathing. No stridor. TMs normal bilaterally. Neck nontender. No lymphadenopathy. No meningismus. Lungs clear to auscultation bilaterally. Dry cough. Heart regular rhythm rate about 95 no murmur. Chest wall nontender. Abdomen soft nontender. Very well-healed horizontal . No drainage or discharge or redness. Closed. Moving all 4 extremities. Trace edema bilaterally. Calves are nontender. No cords. Back nontender. Neurologic exam awake alert no focal motor deficits. Const Vital Signs: 08/25/22 20:12 08/25/22 20:18 08/25/22 21:12 Temperature 96.3 F L Temperature Source Temporal Pulse Rate 98 78 Respiratory Rate 18 18 Respiratory Effort Short of Breath Respiratory Pattern Normal Blood Pressure 148/103 H 138/97 H Blood Pressure Mean 118 110 Pulse Ox 94 99 Oxygen Delivery Method Room Air Room Air Positive well nourished, well developed and obese; Negative for cachectic, contractures or unkempt General Appearance ED: well developed and NAD; Negative for unkempt, cachectic, contractures, cyanotic or diaphoretic Nutritional Appearance: obese; Negative for cachectic HEENT Reports normocephalic, TM's clear and moist mucous membranes; Denies dry mucous membranes atraumatic; Negative for trauma or tenderness Face and Sinus: Negative for sinus tenderness Tympanic Membrane ED: Yes TM's clear Mouth ED: No dry mucous membranes Mouth: No dry mucous membranes Eyes PERRL and EOMs intact bilaterally General Eye ED: Negative for pale conjunctiva or scleral icterus Neck no lymphadenopathy, supple, no meningeal signs and no JVD General: Negative for tenderness Resp normal respiratory effort and clear to auscultation bilaterally Resp Narrative: Dry cough. No wheezing. No rales or rhonchi. Effort and Inspection: Negative for retractions Auscultation: Negative for rales, rhonchi, wheezes or diminished lung sounds Cardio regular rate, regular rhythm, S1 normal heart sound, S2 normal heart sound and no murmurs Rate: Negative for bradycardia Rhythm: Negative for abnormal rhythm GI non-tender and non-distended GI Narrative: Well-healed horizontal surgical scar. Auscultation: normoactive bowel sounds Palpation: soft; Negative for firm, tender, guarding, rigid or mass Back/Spine no CVA tenderness General Back: Negative for CVA tenderness Cervical Spine: Negative for cervical spine tenderness Thoracic Spine / Upper Back: Negative for thoracic spinal tenderness Lumbar Spine / Lower Back: Negative for lumbar spinal tenderness Extremity full ROM; Negative for normal to inspection Extremity Narrative: Bilateral trace edema. General Extremety ED: Yes edema; Negative for tenderness General Extremity: edema Neuro oriented x3 and CN's II-XII intact bilaterally Sensorium / Orientation: awake, alert, oriented to person and oriented to place; Negative for oriented to time, orientation impaired, lethargic or stuporous Coordination / Balance: [id number] test normal Speech: speech normal Motor Exam: strength 5/5 throughout Psych mental status grossly normal Appearance: Negative for unkempt Attitude: No agitated Mood & Affect: Negative for depressed, anxious or tearful Skin Lesions: no lesions Rashes: no rashes Trauma: Negative for abrasion MDM MDM MDM Narrative Medical decision making narrative: 31-year-old status post emergent at 34 weeks. Has chronic hypertension's but has been taken off her meds and not started on anything after the . Complaining of headache. Has a normal neurologic exam and URI symptoms. Screening labs and COVID to be obtained. Chest x-ray. She will be restarted on blood pressure medications. Repeat exam patient doing well at 9:25 PM. She is given 1 dose of lisinopril. She will be started on lisinopril 10 mg a day for her chronic hypertension. Outpatient follow-up with either her primary care provider or a local physician for further evaluation of her blood pressure. Lab Data Attestation: I reviewed the patient's lab results. Lab results narrative: CBC unremarkable white count of 6. H&H 12.2 and 36. Platelet count 198. Rapid COVID test negative. Chest x-ray normal. Electrolytes unremarkable gap 6 normal BUN and creatinine. Normal liver enzymes. Labs: Laboratory Results - last 24 hr 08/25/22 08/25/22 20:55 20:55 WBC 6.0 RBC 3.84 L Hgb 12.2 Hct 36.8 L MCV 95.8 MCH 31.8 MCHC 33.2 RDW Std Deviation 42.1 RDW Coeff of Priscila 12.0 Plt Count 198 MPV 9.3 Immature Gran % (Auto) 0.500 Neut % (Auto) 53.6 Lymph % (Auto) 27.6 Bradford % (Auto) 9.6 Eos % (Auto) 8.2 H Baso % (Auto) 0.5 Absolute Neuts (auto) 3.2 Absolute Lymphs (auto) 1.64 Nucleated RBC % 0 Sodium 144 Potassium 3.7 Chloride 110 H Carbon Dioxide 28.0 Anion Gap 6 BUN 10 Creatinine 0.67 Estim Creat Clear Calc 96.22 Est GFR (MDRD) Af Amer 131 Est GFR (MDRD) Non-Af 108 BUN/Creatinine Ratio 14.8 Glucose 91 Calcium 8.3 L Total Bilirubin 0.40 AST 23 ALT 29 Alkaline Phosphatase 50 Total Protein 6.2 L Albumin 3.4 Globulin 2.8 Albumin/Globulin Ratio 1.2 Radiography Diagnostic Testing: Clinical Impression(s) from Imaging Studies Chest X-Ray 08/25/22 20:37 IMPRESSION: Normal x-ray examination of the chest. Electronically Signed: Azael Pringle MD at 21:21 EDT , Chest x-ray, portable, single view interpreted by myself shows normal cardiac silhouette. Normal lung grajeda. No infiltrates. Normal mediastinum. Rhythm Strip Rhythm Strip: Sinus Rhythm Rate: 78 Ectopy: None EKG Initial EKG: Attestation: I personally reviewed and interpreted this EKG as follows: Interpretation: Sinus Rhythm and No Acute Injury Pattern Comments: Normal sinus rhythm rate of 78 no acute signs of PR or ischemia. First-degree AV block with a FL interval of 296. Discharge Plan Triage Chief Complaint: Headache Other Complaint: Hypertension ED Provider: Bear Richards Dx/Rx/DC Orders Clinical Impression: Headache, Chronic hypertension, URI, acute Instructions: ED Hypertension, Established, ED URI, Viral, No Abx (Adult) Prescriptions: New lisinopril 10 mg tablet 10 mg PO DAILY Qty: 30 0RF No Action sertraline [Zoloft] 100 mg tablet 100 mg PO DAILY buprenorphine HCl 2 mg tablet, sublingual 6 mg sublingual DAILY nifedipine [Procardia XL] 30 mg tablet extended release 24hr 60 mg PO DAILY prenat.vits,alfonso,lfx-nwhc-pszgn Tablet 1 tab PO DAILY naproxen 250 mg tablet 250 - 500 mg PO Q8H PRN PRN (Reason: MILD PAIN) Qty: 30 1RF (DME) blood pressure monitor [Blood Pressure Kit] Kit See Rx Instructions .Route Qty: 1 0RF Rx Instructions: As directed Primary Care Provider: Care Physician,No Primary Referrals: Aly Landa MD [Med Staff - [employer]] - 1-2 Weeks Care Physician,No Primary [Primary Care Provider] - Activity Restrictions/Additional Instructions: Appears to be a virus. He denies any antibiotics. Plenty of fluids and rest. Tylenol and Motrin for any discomfort. Warm salt water gargling for your throat. Start the new blood pressure medication lisinopril. Take it in the evening 1 to 2 hours before bedtime. Follow-up with either your primary care provider or a local physician for repeat evaluation of your blood pressure to see if they need to adjust the medication I started you on. Disposition Disposition: Home, Self Care
[2022-08-25 21:03] LABS: Absolute Lymphocyte Count 1.64 X10^3/uL (0.83-4.51); Absolute Neutrophil Count 3.2 X10^3/uL (2.0-7.7); Basophil# 0.03 X10^3/uL; Basophil% 0.5 % (0-1); Eosinophil# 0.49 X10^3/uL; Eosinophils% 8.2 % (0-5); Hematocrit 36.8 % (37-47); Hemoglobin 12.2 g/dL (12.0-15.0); Lymphocyte # 1.64 X10^3/ul (0.83-4.51); Lymphocyte % 27.6 % (19-41); Mean Corp Hgb Conc 33.2 g/dL (32-36); Mean Corpuscular Hgb 31.8 pg (27.0-32.0); Mean Corpuscular Volume 95.8 fL (81-99); Mean Platelet Vol. 9.3 fl (6.2-12.0); Monocyte# 0.57 X10^3/uL; Monocyte% 9.6 % (0-10); NRBC Flagged by Analyzer 0 % (0-5); Neutrophil # 3.19 X10^3/uL (2.7-7.7); Neutrophil % 53.6 % (47-70); Platelet Count 198 K/mm3 (150-450); RBC Distribution Width SD 42.1 fl (35.1-43.9); Red Blood Count 3.84 M/mm3 (4.2-5.4)
[2022-08-25] MEDS: Lisinopril 10 MG Tablet PO (21:09)
[2022-08-25 21:12] VITALS: BP 138/97; PULSE 78; RESP 18; O2SAT 99
[2022-08-25 21:18] LABS: ALB/GLOB Ratio 1.2 RATIO (0.9-2.4); AST(SGOT) 23 U/L (15-37); Alanine Aminotransfer ALT/SGPT 29 U/L (13-56); Albumin, Serum 3.4 g/dL (3.2-5.0); Alkaline Phosphatase 50 U/L (45-117); Anion Gap 6 (5-15); BUN 10 mg/dL (7-18); BUN/Creat Ratio 14.8 RATIO (10-20); Calcium,Total 8.3 mg/dL (8.5-10.1); Chloride 110 mmol/L (98-107); Creatinine, Serum 0.67 mg/dL (0.55-1.02); EST Glomerular Filtration Rate 108 mL/min (>60); Est Glom Filt Rate - Afr Amer 131 mL/min (>60); Estimated Creatinine Clearance 96.22 ml/min; Globulin 2.8 g/dL (2.2-4.2); Glucose 91 mg/dL (74-106); Potassium 3.7 mmol/L (3.5-5.1); Protein, Total 6.2 g/dL (6.4-8.2); Sodium Level 144 mmol/L (136-145)
[2022-08-25 21:33] VITALS: BP 138/97; PULSE 78; RESP 18; TEMP 36.4; O2SAT 99
== END 2022-08-25 21:34 | disposition home or self-care (01) ==
PROVIDERS: Emergency Provider Emergency Medicine; Visit Provider Emergency Medicine
DX: R51.9 Headache, unspecified (principal); Z68.41 Body mass index [BMI] 40.0-44.9, adult; I10 Essential (primary) hypertension; J06.9 Acute upper respiratory infection, unspecified; E66.9 Obesity, unspecified; F17.210 Nicotine dependence, cigarettes, uncomplicated; Z79.899 Other long term (current) drug therapy
CPT/HCPCS: 71045; 80053; 85025; 87811; 93005; 99284; A4216

== ENCOUNTER 2022-11-27 13:17 | Emergency (ER) | payer MEDICAID, SELFPAY ==
[2022-11-27 13:19] VITALS: BP 128/87; PULSE 94; RESP 16; TEMP 36.2; O2SAT 97; BMI 43.9
--- NOTE | 2022-11-27 16:21 | ED.RN ---
PT NOT IN WAITING ROOM WHEN NAME CALLED.
== END 2022-11-27 16:20 | disposition left against medical advice (07) ==
LOC: ED 16:35
DX: Z53.21 Procedure and treatment not carried out due to patient leaving prior to being seen by health care provider (principal)

== ENCOUNTER 2023-11-08 20:25 | Emergency (ER) | payer MEDICAID, SELFPAY ==
[2023-11-08 20:26] VITALS: BP 173/113; PULSE 81; RESP 16; TEMP 36.4; O2SAT 100; BMI 49.1
--- NOTE | 2023-11-08 22:39 | ED.RN ---
Pt not in room, no where in department. Left without being seen.
== END 2023-11-08 22:30 | disposition left against medical advice (07) ==
DX: R06.02 Shortness of breath (principal)
CPT/HCPCS: 99281

== ENCOUNTER 2024-11-13 21:46 | Emergency (ER) | payer MEDICAID, SELFPAY ==
[2024-11-13 21:47] VITALS: BP 149/92; PULSE 93; RESP 20; TEMP 36.8; O2SAT 100; BMI 49.8
[2024-11-13 21:49] VITALS: BP 149/92; PULSE 93; RESP 20; TEMP 36.8; O2SAT 100
--- NOTE | 2024-11-13 22:31 | EDS_ITS ---
HPI History of Present Illness Chief Complaint: Dental Informant: patient Onset/Context/Timing Onset: Days Context: Gradual Onset Timing: Continuous Current Severity: Moderate Maximum Severity: Moderate Relieved by: NSAIDs Associated Symptoms Assocated Symptom - Dental: face swelling; Negative for fever Narrative Narrative: 33-year-old female history of hypertension, bipolar and history of drug abuse. Complaining of left upper dental pain and facial swelling. Saw in urgent care yesterday was placed on amoxicillin twice daily said she has had 4 total doses now. Was just concerned if this is not getting better and she has had mildly worse swelling. She sees a local dental clinic but has not been able to get in as of yet. Prior similar symptoms: Yes Recent Illness/Hospitalization: No PFSH PFSH Medical History Essential hypertension delivery delivered Chronic hypertension with superimposed preeclampsia Genital herpes affecting Positive GBS test Bipolar disorder Anxiety Depression Chronic pain GERD (gastroesophageal reflux disease) Smoker Migraines Substance abuse Desire for detoxification Kidney stones Home Medications ?Medication ?Instructions ?Recorded ?Last Taken ?Type buprenorphine HCl 2 mg sublingual 12 mg sublingual DAILY hx drug use 06/10/22 07/05/22 History tablet amoxicillin 500 mg capsule 500 mg PO BID 11/13/24 Unknown History lisinopril 20 mg tablet 20 mg PO DAILY 11/13/24 Unknown History Allergy/AdvReac Type Severity Reaction Status Date / Time latex Allergy Itching Verified 11/13/24 21:47 meperidine HCl (From Demerol) Allergy Hives Verified 11/13/24 21:47 acetaminophen (From AdvReac Vomiting Verified 11/13/24 21:47 Tylenol-Codeine #3) codeine phosphate (From AdvReac Vomiting Verified 11/13/24 21:47 Tylenol-Codeine #3) morphine AdvReac Vomiting Verified 11/13/24 21:47 Family History Grandfather Heart disease Other Anxiety Depression Hypertension Surgical History Status post bilateral salpingectomy History of cholecystectomy H/O: Social History household members: children number of children: 4 current occupational status: employed current occupation: [employer] pets and animals: No Smoking Status: Current every day smoker tobacco type: cigarettes alcohol intake: current alcohol intake frequency: holidays/special occasions only substance use type: former substance user Date of last use: fentanyl. last used 11/18/21 ROS ROS ED ROS Narrative Denies recent illness. Constitutional Constitutional ED: Denies chills or fever(s) Eyes Eyes: Denies blurry vision ENT ENT ED: Denies ear pain Cardiovascular Cardiovascular: Denies chest pain Respiratory/Chest Respiratory/Chest: Denies cough or dyspnea Gastrointestinal Gastrointestinal: Denies abdominal pain Genitourinary Genitourinary ED: Denies dysuria Musculoskeletal Musculoskeletal: Denies arthralgias Integumentary Denies abscess Neurologic Neurologic: Denies headache(s) Psychiatric Psychiatric: Denies anxiety or depression Endocrine Endocrinology: Denies cold intolerance Hematologic/Lymphatic Hematologic/Lymphatic: Denies easy bleeding Allergic/Immunologic Allergic/Immunologic ED: Denies mouth swelling EXAM Physical Exam Narrative Exam Narrative: Well-appearing 33-year-old female. Vital signs are stable afebrile. She does not look septic or toxic any distress. H EENT exam pupils round reactive light. She has mild swelling of her left cheek. Moist mucous membranes. She has very poor dentition. Multiple missing teeth all of her teeth are decaying and have cavities. The last upper left molar is eroded to the gumline. She is gingivitis throughout her upper and lower gums. There is no specific abscess. There is nothing to drain. She has no trismus. She has no trouble swallowing or breathing. No Elias's angina. Neck nontender no lymphadenopathy. Lungs clear to auscultation. Heart regular rhythm no murmur. Abdomen soft. Otherwise exam unremarkable. Const Vital Signs: 11/13/24 21:47 11/13/24 21:49 Temperature 98.2 F 98.2 F Temperature Source Oral Oral Pulse Rate 93 93 Respiratory Rate 20 H 20 H Blood Pressure 149/92 H 149/92 H Blood Pressure Mean 111 111 Pulse Ox 100 100 Oxygen Delivery Method Room Air Room Air Positive well nourished and well developed; Negative for cachectic, contractures or unkempt General Appearance ED: well developed and NAD; Negative for unkempt, cachectic or contractures Nutritional Appearance: Negative for cachectic HEENT HEENT Narrative: Very poor dentition. Multiple missing teeth. Multiple cavities. Dental decay. Gingivitis. No abscess. Tender left upper molar eroded to the gumline. Nothing to drain. No trismus. No trouble swallowing or breathing. Negative for trauma or tenderness Mouth ED: Yes lips normal, Yes tongue normal and Yes salivary gland normal Mouth: lips normal, tongue normal and salivary gland normal Teeth and Gingiva: abnormal tooth and associated gingiva, caries, gingiva abnormal, poor dentition and teeth discoloration Throat: posterior oropharynx normal Eyes PERRL and EOMs intact bilaterally Neck no lymphadenopathy, supple and no JVD General: normal visual inspection; Negative for anterior neck swelling, tenderness or submandibular swelling Lymph Lymphatic: no lymphadenopathy noted Chest Wall inspection of chest normal and palpation of chest normal Resp normal respiratory effort, no retractions and clear to auscultation bilaterally Cardio regular rate, regular rhythm, S1 normal heart sound, S2 normal heart sound and no murmurs Rate: Negative for bradycardia or tachycardic GI normal to inspection, nondistended, normoactive bowel sounds, non-tender, non- distended and no masses Palpation: soft Back/Spine no CVA tenderness General Back: Negative for CVA tenderness Cervical Spine: Negative for other Thoracic Spine / Upper Back: Negative for thoracic spinal tenderness, paraspinal muscle tenderness or paraspinal muscle spasm Extremity normal to inspection and no joint enlargement General Extremety ED: Negative for edema General Extremity: Negative for edema Neuro oriented x3, CN's II-XII intact bilaterally, moves all extremities and no focal motor deficits Sensorium / Orientation: alert, oriented to person, oriented to place and oriented to time Motor Exam: strength 5/5 throughout Psych mental status grossly normal Appearance: Negative for unkempt Mood & Affect: Negative for depressed or tearful Skin no rashes or lesions noted and no wounds MDM MDM MDM Narrative Medical decision making narrative: 33-year-old female with dental infection, decay and cavities. Nothing to drain. Diffuse gingivitis. Was started on antibiotic 2 days ago. Amoxicillin twice daily. She has a dentist to follow-up with. She will continue Motrin and Tylenol for pain. Continue her antibiotic. There is nothing to drain at this time. She only has mild swelling. I told her she probably just needs further use of the antibiotic until she starts seeing improvement. Swelling been 2 days. History & Record Review Discussion w/independent historian: Patient Discharge Plan Triage Chief Complaint: Dental ED Provider: Bear Richards Dx/Rx/DC Orders Clinical Impression: Pain, dental, Dental infection, Gingivitis Instructions: ED Dental Pain, ED Dental Cavity Prescriptions: No Action buprenorphine HCl 2 mg tablet, sublingual 12 mg sublingual DAILY amoxicillin 500 mg capsule 500 mg PO BID lisinopril 20 mg tablet 20 mg PO DAILY Primary Care Provider: Wofl Che Referrals: Wolf Che, WILDLIFE CONSERVATION PROFESSOR-C [Primary Care Provider] - Activity Restrictions/Additional Instructions: Warm salt water rinses her mouth. Continue your antibiotics. Motrin and Tylenol for pain. Follow-up with [facility] for dental care as soon as possible. Or call one of the local dentists like [facility] or one of the local private dental offices. Print Language: Slovenian Disposition Disposition: Home, Self Care
== END 2024-11-13 22:36 | disposition home or self-care (01) ==
PROVIDERS: Emergency Provider Emergency Medicine; PCP Nurse Practitioner Family; Visit Provider Emergency Medicine
DX: K04.7 Periapical abscess without sinus (principal); I10 Essential (primary) hypertension; F17.210 Nicotine dependence, cigarettes, uncomplicated; K05.10 Chronic gingivitis, plaque induced; K08.89 Other specified disorders of teeth and supporting structures; Z79.899 Other long term (current) drug therapy; Z90.49 Acquired absence of other specified parts of digestive tract
CPT/HCPCS: 99282

== ENCOUNTER 2025-03-29 18:59 | Emergency (ER) | payer MEDICAID, SELFPAY ==
[2025-03-29 19:01] VITALS: BP 147/89; PULSE 97; RESP 18; TEMP 36; O2SAT 100; BMI 48.9
--- NOTE | 2025-03-29 19:18 | EX.ED.DYSGE1 ---
HPI History of Present Illness Chief Complaint: General Illness Informant: patient Onset/Context/Timing Onset: Weeks Context: Gradual Onset Timing: Continuous Current Severity: Mild Maximum Severity: Mild Narrative Narrative: 34-year-old female history of bipolar, substance abuse, hypertension. States that everyone in her house has been sick for the last month. She has been battling URI for 4 weeks. At times he gets better and other times it returns. She denies any vomiting or diarrhea. He says she does have a cough with green sputum. No fever. Also states she has right lower jaw dental pain. Was seen at an urgent care [facility] and sent to the emergency department. Prior similar symptoms: Yes Recent Illness/[facility]: [facility] Medical History Essential hypertension delivery delivered Chronic hypertension with superimposed preeclampsia Genital herpes affecting Positive GBS test Bipolar disorder Anxiety Depression Chronic pain GERD (gastroesophageal reflux disease) Smoker Migraines Substance abuse Desire for detoxification Kidney stones Home Medications ?Medication ?Instructions ?Recorded ?Last Taken ?Type buprenorphine HCl 2 mg sublingual 12 mg sublingual DAILY hx drug use 06/10/22 07/05/22 History tablet amoxicillin 500 mg capsule 500 mg PO BID 11/13/24 Unknown History lisinopril 20 mg tablet 20 mg PO DAILY 11/13/24 Unknown History penicillin V potassium 500 mg 500 mg PO 4X/DAY 10 days #40 tabs 03/29/25 Unknown Rx tablet Allergy/AdvReac Type Severity Reaction Status Date / Time latex Allergy Itching Verified 03/29/25 19:01 meperidine HCl (From Demerol) Allergy Hives Verified 03/29/25 19:01 acetaminophen (From AdvReac Vomiting Verified 03/29/25 19:01 Tylenol-Codeine #3) codeine phosphate (From AdvReac Vomiting Verified 03/29/25 19:01 Tylenol-Codeine #3) morphine AdvReac Vomiting Verified 03/29/25 19:01 Family History Grandfather Heart disease Other Anxiety Depression Hypertension Surgical History Status post bilateral salpingectomy History of cholecystectomy H/O: Social History household members: children number of children: 4 current occupational status: employed 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 last used 11/18/21 ROS ROS ED ROS Narrative Cough. Green sputum. Right lower jaw dental pain. Constitutional Constitutional ED: Denies chills or fever(s) Eyes Eyes: Denies blurry vision ENT ENT ED: Reports sore throat; Denies ear pain Cardiovascular Cardiovascular: Denies chest pain Respiratory/Chest Respiratory/Chest: Reports cough; Denies dyspnea Gastrointestinal Gastrointestinal: Denies abdominal pain, diarrhea, nausea or vomiting Genitourinary Genitourinary ED: Denies dysuria or hematuria Musculoskeletal Musculoskeletal: Denies arthralgias Integumentary Denies abscess Neurologic Neurologic: Denies headache(s) Psychiatric Psychiatric: Denies anxiety Endocrine Endocrinology: Denies cold intolerance Hematologic/Lymphatic Hematologic/Lymphatic: Reports none Allergic/Immunologic Allergic/Immunologic ED: Denies mouth swelling, tongue swelling or urticaria EXAM Physical Exam Narrative Exam Narrative: 34-year-old female in no acute distress. Vital signs are stable afebrile. Pulse ox 100% on room air no hypoxia. H EENT exam pupils round react light. Moist with membranes. Right lower molar is very decayed large cavity. mild gingival swelling. No abscess visible. No trismus. Able to open close her mouth on any difficulty. Multiple missing teeth. Posterior pharynx unremarkable. No erythema. No trouble swallowing. TMs are normal. Neck nontender no lymphadenopathy. Lungs clear to auscultation bilaterally. Dry cough. No rales rhonchi or wheezing. Equal symmetrical. Pulse ox 100% on room air no hypoxia. Heart regular rate and rhythm no murmur rate about 90. Chest wall ribs nontender. Abdomen soft nontender. Moving all 4 extremities. Nontender no edema. No calf tender. Back nontender. Neurologically awake alert no focal motor deficits. Answer questions following commands. Normal strength. Const Vital Signs: 03/29/25 19:01 Temperature 96.8 F L Temperature Source Temporal Pulse Rate 97 Respiratory Rate 18 Blood Pressure 147/89 H Blood Pressure Mean 108 Pulse Ox 100 Oxygen Delivery Method Room Air Positive well nourished and well developed; Negative for cachectic, contractures or unkempt General Appearance ED: well developed and NAD; Negative for unkempt, cachectic, contractures, cyanotic, diaphoretic or pallor Nutritional Appearance: Negative for cachectic HEENT Reports moist mucous membranes Negative for trauma or tenderness Eyes PERRL and EOMs intact bilaterally Neck no lymphadenopathy, supple and no JVD Chest Wall inspection of chest normal and palpation of chest normal Resp normal respiratory effort and clear to auscultation bilaterally Cardio regular rate, regular rhythm, S1 normal heart sound, S2 normal heart sound and no murmurs GI normal to inspection, nondistended, normoactive bowel sounds, non-tender, non-distended and no masses Auscultation: normoactive bowel sounds Palpation: soft; Negative for tender, guarding or rebound tenderness present Back/Spine no CVA tenderness General Back: Negative for CVA tenderness Cervical Spine: Negative for cervical spine tenderness Thoracic Spine / Upper Back: Negative for thoracic spinal tenderness or paraspinal muscle tenderness Lumbar Spine / Lower Back: Negative for lumbar spinal tenderness Extremity normal to inspection General Extremety ED: Negative for edema or tenderness General Extremity: Negative for edema Neuro oriented x3 and CN's II-XII intact bilaterally Sensorium / Orientation: alert; Negative for orientation impaired, lethargic or stuporous Motor Exam: strength 5/5 throughout Psych mental status grossly normal Appearance: Negative for unkempt Attitude: No agitated Mood & Affect: Negative for depressed, anxious or tearful Skin no rashes or lesions noted, no wounds and skin turgor normal General Skin Exam: Negative for jaundice or pallor Lesions: No lesion noted Rashes: No rashes noted Trauma: Negative for abrasion Wounds: Negative for wounds noted MDM MDM MDM Narrative Medical decision making narrative: 34-year-old female with viral URI. Lungs are clear I do not think she needs an x-ray she is comfortable with that and said I do not want additional bills if I do not need the test. She has had this for several weeks I do not think COVID and flu testing would be any benefit. She is comfortable being discharged to home. She be placed on Pen-Vee K for her tooth. Discharge Plan Triage Chief Complaint: General Illness ED Provider: Bear Richards Dx/Rx/DC Orders Clinical Impression: Viral URI, Dental infection, Dental cavity Instructions: ED Dental Cavity Prescriptions: New penicillin V potassium 500 mg tablet 500 mg PO 4X/DAY 10 Days Qty: 40 0RF No Action buprenorphine HCl 2 mg tablet, sublingual 12 mg sublingual DAILY amoxicillin 500 mg capsule 500 mg PO BID lisinopril 20 mg tablet 20 mg PO DAILY Primary Care Provider: Wolf Che Referrals: Wolf Che, [facility] [Primary Care Provider] - As Needed Activity Restrictions/Additional Instructions: Motrin Tylenol for the dental pain and body aches. Plenty of fluids and rest. Penicillin VK 1 pill 4 times a day for 10 days for the dental cavity infection. Call your insurance to get follow-up with a dentist. The respiratory infection appears to be viral. Your lungs are clear I do not hear any signs of pneumonia. Follow-up if not improving. Print Language: Israeli Disposition Disposition: Home, Self Care
[2025-03-29] MEDS: Penicillin Vk 250 MG Tablet 500 MG PO (19:36)
[2025-03-29 19:38] VITALS: BP 121/81; PULSE 85; RESP 12; TEMP 36.7; O2SAT 98
== END 2025-03-29 19:40 | disposition home or self-care (01) ==
LOC: ED 19:24
PROVIDERS: Emergency Provider Emergency Medicine; PCP Nurse Practitioner Family; Visit Provider Emergency Medicine
DX: J06.9 Acute upper respiratory infection, unspecified (principal); F17.210 Nicotine dependence, cigarettes, uncomplicated; K04.7 Periapical abscess without sinus; I10 Essential (primary) hypertension; K02.9 Dental caries, unspecified; Z79.899 Other long term (current) drug therapy; Z90.49 Acquired absence of other specified parts of digestive tract
CPT/HCPCS: 99282